=== PATIENT | female | born 1945 | race Caucasian/White ===

== ENCOUNTER → 2017-09-20 09:11 | Outpatient (CLI) | payer MEDICARE, BC, SELFPAY ==
[2017-09-20 09:32] LABS: Basophils # 0.1 K/mm3 (0-0.2); Basophils % 1.1 % (0.1-2.0); Eosinophils # 0.2 K/mm3 (0.0-0.4); Hematocrit 40.7 % (37.0-47.0); Hemoglobin 13.2 g/dL (12.2-16.2); Lymphocytes # 1.9 K/mm3 (0.7-4.5); Mean Corpuscular HGB Conc 32.4 g/dL (31.8-35.4); Mean Corpuscular Hemoglobin 28.4 pg (27.0-31.2); Mean Corpuscular Volume 87.6 fl (81-99); Monocytes # 0.4 K/mm3 (0.1-1.0); Monocytes % 7.4 % (1.7-9.3); Neutrophils # 3.1 K/mm3 (1.8-7.8); Neutrophils % 54.4 % (37.0-80.0); Platelet Count 253 K/mm3 (142-424); Red Blood Count 4.65 M/mm3 (4.20-5.40); White Blood Count 5.6 K/mm3 (4.8-10.8)
[2017-09-20 10:38] LABS: Alanine Aminotransferase 28 U/L (12-78); Albumin/Globulin Ratio 1.1 (1.1-1.8); Alkaline Phosphatase 70 U/L (46-116); Anion Gap 14.9 mEq/L (5-15); Aspartate Amino Transferase 22 U/L (15-37); Bilirubin,Total 0.6 mg/dL (0.2-1.0); Blood Urea Nitrogen 14 mg/dL (7-18); Calcium 9.4 mg/dL (8.5-10.1); Carbon Dioxide 28 mmol/L (21.0-32.0); Chloride 103 mmol/L (98-107); Chol/HDL Ratio 4.8 (1-3.5); Cholesterol 206 mg/dL (140-200); Creatinine,Serum 0.68 mg/dL (0.55-1.02); Estimated Glomerular Filt Rate 85 ml/min (>60); GFR (African American) 103 ML/MIN (>60); Globulin 3.7 gm/dl (1.3-3.2); Glucose 101 mg/dL (74-106); HDL Cholesterol 43 mg/dL (29-89); LDL Cholesterol 103 mg/dL (0-130); Potassium 3.9 mmoL/L (3.5-5.1); Sodium 142 mmol/L (136-145); Total Protein,Serum 7.7 gm/dL (6.4-8.2); Triglycerides 298 mg/dL (30-200); VLDL Cholesterol 60 mg/dL (0-40)
== END ==
PROVIDERS: Visit Provider Internal Medicine
DX: I10 Essential (primary) hypertension (principal); E78.5 Hyperlipidemia, unspecified; M17.0 Bilateral primary osteoarthritis of knee
CPT/HCPCS: 36415; 80053; 80061; 85025

== ENCOUNTER → 2017-10-04 10:35 | Outpatient (REF) | payer MEDICARE, BC, SELFPAY | LOC: LAB 10:35 | PROVIDERS: Visit Provider Podiatrist | DX: B07.0 Plantar wart (principal) | CPT/HCPCS: 87102; 87206; 87220 ==

== ENCOUNTER → 2018-04-26 09:32 | Outpatient (CLI) | payer MEDICARE, BC, SELFPAY ==
[2018-04-26 11:49] LABS: Alanine Aminotransferase 31 U/L (12-78); Albumin Level 3.9 gm/dL (3.4-5.0); Albumin/Globulin Ratio 1.1 (1.1-1.8); Alkaline Phosphatase 65 U/L (46-116); Anion Gap 13.2 mEq/L (5-15); Aspartate Amino Transferase 19 U/L (15-37); Bilirubin,Total 0.4 mg/dL (0.2-1.0); Blood Urea Nitrogen 17 mg/dL (7-18); Calcium 9.3 mg/dL (8.5-10.1); Carbon Dioxide 27 mmol/L (21.0-32.0); Chloride 104 mmol/L (98-107); Cholesterol 193 mg/dL (140-200); Estimated Glomerular Filt Rate 71 ml/min (>60); GFR (African American) 85 ML/MIN (>60); Globulin 3.6 gm/dl (1.3-3.2); Glucose 103 mg/dL (74-106); HDL Cholesterol 48 mg/dL (29-89); LDL Cholesterol 117 mg/dL (0-130); Potassium 4.2 mmoL/L (3.5-5.1); Sodium 140 mmol/L (136-145); Total Protein,Serum 7.5 gm/dL (6.4-8.2); Triglycerides 142 mg/dL (30-200); VLDL Cholesterol 28 mg/dL (0-40)
== END ==
PROVIDERS: Visit Provider Internal Medicine
DX: E78.5 Hyperlipidemia, unspecified (principal); I10 Essential (primary) hypertension
CPT/HCPCS: 36415; 80053; 80061

== ENCOUNTER → 2018-10-17 10:19 | Outpatient (CLI) | payer MEDICARE, BC, SELFPAY ==
[2018-10-17 10:48] LABS: Basophils % 0.6 % (0.1-2.0); Eosinophils # 0.2 K/mm3 (0.0-0.4); Eosinophils % 2.8 % (0.1-12.0); Hematocrit 39.7 % (37.0-47.0); Hemoglobin 12.8 g/dL (12.2-16.2); Lymphocytes # 2.1 K/mm3 (0.7-4.5); Lymphocytes % 34.5 % (10-50); Mean Corpuscular HGB Conc 32.3 g/dL (31.8-35.4); Mean Corpuscular Hemoglobin 28.1 pg (27.0-31.2); Mean Corpuscular Volume 86.9 fl (81-99); Mean Platelet Volume 6.7 fl (7.4-10.4); Monocytes # 0.4 K/mm3 (0.1-1.0); Monocytes % 5.9 % (1.7-9.3); Neutrophils # 3.4 K/mm3 (1.8-7.8); Neutrophils % 56.2 % (37.0-80.0); Platelet Count 287 K/mm3 (142-424); Red Blood Count 4.57 M/mm3 (4.20-5.40); Red Cell Distribution Width 13.1 % (11.5-17.5)
[2018-10-17 12:14] LABS: Alanine Aminotransferase 32 U/L (12-78); Albumin Level 3.8 gm/dL (3.4-5.0); Albumin/Globulin Ratio 1.1 (1.1-1.8); Alkaline Phosphatase 64 U/L (46-116); Anion Gap 15.3 mEq/L (5-15); Aspartate Amino Transferase 22 U/L (15-37); Bilirubin,Total 0.5 mg/dL (0.2-1.0); Blood Urea Nitrogen 12 mg/dL (7-18); Calcium 9.6 mg/dL (8.5-10.1); Carbon Dioxide 28 mmol/L (21.0-32.0); Chloride 103 mmol/L (98-107); Chol/HDL Ratio 4.3 (1-3.5); Cholesterol 184 mg/dL (140-200); Creatinine,Serum 0.76 mg/dL (0.55-1.02); Estimated Glomerular Filt Rate 75 ml/min (>60); GFR (African American) 91 ML/MIN (>60); Globulin 3.6 gm/dl (1.3-3.2); Glucose 95 mg/dL (74-106); HDL Cholesterol 43 mg/dL (29-89); LDL Cholesterol 100 mg/dL (0-130); Potassium 4.3 mmoL/L (3.5-5.1); Sodium 142 mmol/L (136-145); Total Protein,Serum 7.4 gm/dL (6.4-8.2); Triglycerides 207 mg/dL (30-200); VLDL Cholesterol 41 mg/dL (0-40)
== END ==
PROVIDERS: Visit Provider Internal Medicine
DX: Z01.810 Encounter for preprocedural cardiovascular examination (principal); E78.5 Hyperlipidemia, unspecified; H26.9 Unspecified cataract; I10 Essential (primary) hypertension
CPT/HCPCS: 36415; 80053; 80061; 85025; 93005

== ENCOUNTER → 2019-10-23 09:29 | Outpatient (CLI) | payer MEDICARE, OTHER, SELFPAY ==
[2019-10-23 09:53] LABS: Basophils % 0.7 % (0.1-2.0); Eosinophils # 0.2 K/mm3 (0.0-0.4); Eosinophils % 3.3 % (0.1-12.0); Hematocrit 39.5 % (37.0-47.0); Hemoglobin 13.4 g/dL (12.2-16.2); Lymphocytes # 2.2 K/mm3 (0.7-4.5); Lymphocytes % 37.2 % (10-50); Mean Corpuscular HGB Conc 33.8 g/dL (31.8-35.4); Mean Corpuscular Volume 91.5 fl (81-99); Mean Platelet Volume 7.2 fl (7.4-10.4); Monocytes # 0.4 K/mm3 (0.1-1.0); Monocytes % 6.2 % (1.7-9.3); Neutrophils # 3.1 K/mm3 (1.8-7.8); Neutrophils % 52.6 % (37.0-80.0); Platelet Count 255 K/mm3 (142-424); Red Blood Count 4.31 M/mm3 (4.20-5.40); Red Cell Distribution Width 13.1 % (11.5-17.5); White Blood Count 5.8 K/mm3 (4.8-10.8)
[2019-10-23 10:01] LABS: Alanine Aminotransferase 27 U/L (12-78); Albumin Level 4.6 g/dl (3.5-5.0); Albumin/Globulin Ratio 1.4 (1.1-1.8); Alkaline Phosphatase 69 U/L (38-126); Anion Gap 14.2 mEq/L (5-15); Aspartate Amino Transferase 32 U/L (14-36); Bilirubin,Total 0.6 mg/dl (0.2-1.3); Blood Urea Nitrogen 18 mg/dl (7-17); Calcium 9.5 mg/dl (8.4-10.2); Carbon Dioxide 28 mmol/L (22.0-30.0); Chloride 104 mmol/L (98-107); Chol/HDL Ratio 4.2 (1-3.5); Cholesterol 191 mg/dl (140-200); Estimated Glomerular Filt Rate 82 ml/min (>60); GFR (African American) 99 ML/MIN (>60); Globulin 3.3 g/dL (1.3-3.2); Glucose 107 mg/dl (74-100); HDL Cholesterol 45 mg/dl (40-60); Potassium 4.2 mmoL/L (3.5-5.1); Sodium 142 mmol/L (136-145); Total Protein,Serum 7.9 g/dl (6.3-8.2); Triglycerides 156 mg/dl (30-150); VLDL Cholesterol 31 mg/dL (0-40)
[2019-10-23 10:12] LABS: Direct LDL Cholesterol 109.74 mg/dL (100-129)
== END ==
PROVIDERS: Visit Provider Internal Medicine
DX: I10 Essential (primary) hypertension (principal); E78.5 Hyperlipidemia, unspecified; M17.0 Bilateral primary osteoarthritis of knee; K21.9 Gastro-esophageal reflux disease without esophagitis
CPT/HCPCS: 36415; 80053; 80061; 85025

== ENCOUNTER → 2020-04-23 09:47 | Outpatient (CLI) | payer MEDICARE, OTHER, SELFPAY ==
[2020-04-23 13:23] LABS: Chloride 102 mmol/L (98-107)
[2020-04-23 13:24] LABS: Sodium 139 mmol/L (136-145)
[2020-04-23 13:26] LABS: Alanine Aminotransferase 29 U/L (12-78); Alkaline Phosphatase 63 U/L (38-126); Aspartate Amino Transferase 35 U/L (14-36); Bilirubin,Total 0.6 mg/dl (0.2-1.3); Blood Urea Nitrogen 17 mg/dl (7-17); Carbon Dioxide 30 mmol/L (22.0-30.0); Estimated Glomerular Filt Rate 70 ml/min (>60); GFR (African American) 85 ML/MIN (>60)
[2020-04-23 13:27] LABS: Albumin Level 4.8 g/dl (3.5-5.0); Albumin/Globulin Ratio 1.6 (1.1-1.8); Calcium 10.1 mg/dl (8.4-10.2); Chol/HDL Ratio 5.1 (1-3.5); Cholesterol 209 mg/dl (140-200); Glucose 99 mg/dl (74-100); HDL Cholesterol 41 mg/dl (40-60); Total Protein,Serum 7.8 g/dl (6.3-8.2); Triglycerides 172 mg/dl (30-150); VLDL Cholesterol 34 mg/dL (0-40)
[2020-04-23 13:38] LABS: Direct LDL Cholesterol 124.23 mg/dL (100-129)
== END ==
PROVIDERS: Visit Provider Internal Medicine
DX: E78.5 Hyperlipidemia, unspecified (principal); I10 Essential (primary) hypertension; M17.0 Bilateral primary osteoarthritis of knee
CPT/HCPCS: 36415; 80053; 80061

== ENCOUNTER → 2020-10-24 10:20 | Outpatient (CLI) | payer MEDICARE, OTHER, SELFPAY ==
[2020-10-24 10:39] LABS: Basophils # 0.1 K/mm3 (0-0.2); Basophils % 0.9 % (0.1-2.0); Eosinophils # 0.3 K/mm3 (0.0-0.4); Eosinophils % 4.5 % (0.1-12.0); Hematocrit 38.6 % (37.0-47.0); Lymphocytes # 2.5 K/mm3 (0.7-4.5); Lymphocytes % 40.3 % (10-50); Mean Corpuscular HGB Conc 33.8 g/dL (31.8-35.4); Mean Corpuscular Hemoglobin 29.9 pg (27.0-31.2); Mean Corpuscular Volume 88.5 fl (81-99); Mean Platelet Volume 7.2 fl (7.4-10.4); Monocytes # 0.4 K/mm3 (0.1-1.0); Monocytes % 5.6 % (1.7-9.3); Neutrophils % 48.7 % (37.0-80.0); Platelet Count 261 K/mm3 (142-424); Red Blood Count 4.36 M/mm3 (4.20-5.40); Red Cell Distribution Width 13.3 % (11.5-17.5); White Blood Count 6.3 K/mm3 (4.8-10.8)
[2020-10-24 11:25] LABS: Chloride 106 mmol/L (98-107); Potassium 4.5 mmoL/L (3.5-5.1); Sodium 143 mmol/L (136-145)
[2020-10-24 11:27] LABS: Alanine Aminotransferase 20 U/L (12-78); Anion Gap 12.5 mEq/L (5-15); Aspartate Amino Transferase 27 U/L (14-36); Blood Urea Nitrogen 14 mg/dl (7-17); Carbon Dioxide 29 mmol/L (22.0-30.0); Estimated Glomerular Filt Rate 82 ml/min (>60); GFR (African American) 99 ML/MIN (>60)
[2020-10-24 11:28] LABS: Albumin Level 4.6 g/dl (3.5-5.0); Albumin/Globulin Ratio 1.6 (1.1-1.8); Alkaline Phosphatase 70 U/L (38-126); Bilirubin,Total 0.6 mg/dl (0.2-1.3); Calcium 9.3 mg/dl (8.4-10.2); Chol/HDL Ratio 4.5 (1-3.5); Cholesterol 178 mg/dl (140-200); Globulin 2.8 g/dL (1.3-3.2); Glucose 97 mg/dl (74-100); HDL Cholesterol 40 mg/dl (40-60); Total Protein,Serum 7.4 g/dl (6.3-8.2); Triglycerides 210 mg/dl (30-150); VLDL Cholesterol 42 mg/dL (0-40)
[2020-10-24 11:39] LABS: Direct LDL Cholesterol 84.75 mg/dL (100-129)
== END ==
PROVIDERS: Visit Provider Internal Medicine
DX: I10 Essential (primary) hypertension (principal); E78.5 Hyperlipidemia, unspecified; M15.0 Primary generalized (osteo)arthritis
CPT/HCPCS: 36415; 80053; 80061; 85025

== ENCOUNTER → 2021-03-30 11:14 | Outpatient (CLI) | payer MEDICARE, OTHER, SELFPAY ==
[2021-03-30 13:43] LABS: Strep Scrn Group A (Rapid) Negative (Negative)
== END ==
PROVIDERS: PCP Internal Medicine; Visit Provider Internal Medicine
DX: U07.1 COVID-19 (principal)
CPT/HCPCS: 87275; 87276; 87430; C9803; U0003; U0005

== ENCOUNTER → 2021-04-02 08:04 | Outpatient (CLI) | payer MEDICARE, OTHER, SELFPAY ==
[2021-04-02] VITALS (7 sets, daily range): BP systolic 136–183; BP diastolic 71–80; PULSE 62–69; RESP 18; O2SAT 94–97
== END ==
PROVIDERS: PCP Internal Medicine; Visit Provider Internal Medicine
DX: U07.1 COVID-19 (principal); Z23 Encounter for immunization
CPT/HCPCS: 96365

== ENCOUNTER → 2021-04-27 10:42 | Outpatient (CLI) | payer MEDICARE, OTHER, SELFPAY ==
[2021-04-27 11:43] LABS: Basophils # 0.1 K/mm3 (0-0.2); Basophils % 1.1 % (0.1-2.0); Eosinophils # 0.2 K/mm3 (0.0-0.4); Eosinophils % 3.9 % (0.1-12.0); Hematocrit 40.5 % (37.0-47.0); Hemoglobin 13.4 g/dL (12.2-16.2); Lymphocytes % 36.7 % (10-50); Mean Corpuscular HGB Conc 33.1 g/dL (31.8-35.4); Mean Corpuscular Hemoglobin 30.7 pg (27.0-31.2); Mean Corpuscular Volume 92.6 fl (81-99); Mean Platelet Volume 7.3 fl (7.4-10.4); Monocytes # 0.4 K/mm3 (0.1-1.0); Monocytes % 7.2 % (1.7-9.3); Neutrophils # 2.7 K/mm3 (1.8-7.8); Neutrophils % 51.2 % (37.0-80.0); Platelet Count 252 K/mm3 (142-424); Red Blood Count 4.37 M/mm3 (4.20-5.40); Red Cell Distribution Width 13.6 % (11.5-17.5); White Blood Count 5.3 K/mm3 (4.8-10.8)
[2021-04-27 12:54] LABS: Alanine Aminotransferase 19 U/L (12-78); Albumin Level 4.4 g/dl (3.5-5.0); Albumin/Globulin Ratio 1.6 (1.1-1.8); Alkaline Phosphatase 51 U/L (38-126); Anion Gap 13.5 mEq/L (5-15); Aspartate Amino Transferase 27 U/L (14-36); Bilirubin,Total 0.5 mg/dl (0.2-1.3); Blood Urea Nitrogen 15 mg/dl (7-17); Calcium 9.4 mg/dl (8.4-10.2); Carbon Dioxide 25 mmol/L (22.0-30.0); Chloride 104 mmol/L (98-107); Chol/HDL Ratio 4.1 (1-3.5); Cholesterol 170 mg/dl (140-200); Estimated Glomerular Filt Rate 82 ml/min (>60); GFR (African American) 99 ML/MIN (>60); Globulin 2.8 g/dL (1.3-3.2); Glucose 88 mg/dl (74-100); HDL Cholesterol 41 mg/dl (40-60); Potassium 4.5 mmoL/L (3.5-5.1); Sodium 138 mmol/L (136-145); Total Protein,Serum 7.2 g/dl (6.3-8.2); Triglycerides 186 mg/dl (30-150); VLDL Cholesterol 37 mg/dL (0-40)
[2021-04-27 13:05] LABS: Direct LDL Cholesterol 98.44 mg/dL (100-129)
== END ==
PROVIDERS: PCP Internal Medicine; Visit Provider Internal Medicine
DX: I10 Essential (primary) hypertension (principal); E78.5 Hyperlipidemia, unspecified; M15.0 Primary generalized (osteo)arthritis; K21.9 Gastro-esophageal reflux disease without esophagitis; Z86.16 Personal history of COVID-19
CPT/HCPCS: 36415; 80053; 80061; 85025

== ENCOUNTER → 2021-10-27 09:17 | Outpatient (CLI) | payer MEDICARE, OTHER, SELFPAY ==
[2021-10-27 10:34] LABS: Alanine Aminotransferase 23 U/L (12-78); Albumin Level 4.2 g/dl (3.5-5.0); Albumin/Globulin Ratio 1.4 (1.1-1.8); Alkaline Phosphatase 68 U/L (38-126); Aspartate Amino Transferase 29 U/L (14-36); Bilirubin,Total 0.3 mg/dl (0.2-1.3); Blood Urea Nitrogen 16 mg/dl (7-17); Calcium 9.6 mg/dl (8.4-10.2); Carbon Dioxide 29 mmol/L (22.0-30.0); Chloride 106 mmol/L (98-107); Chol/HDL Ratio 4.4 (1-3.5); Cholesterol 182 mg/dl (140-200); Estimated Glomerular Filt Rate 70 ml/min (>60); GFR (African American) 85 ML/MIN (>60); Glucose 107 mg/dl (74-100); HDL Cholesterol 41 mg/dl (40-60); Magnesium 1.8 mg/dl (1.6-2.3); Sodium 140 mmol/L (136-145); Total Protein,Serum 7.2 g/dl (6.3-8.2); Triglycerides 209 mg/dl (30-150); VLDL Cholesterol 42 mg/dL (0-40)
[2021-10-27 10:45] LABS: Direct LDL Cholesterol 91.13 mg/dL (100-129)
== END ==
PROVIDERS: PCP Internal Medicine; Visit Provider Internal Medicine
DX: I10 Essential (primary) hypertension (principal); E78.5 Hyperlipidemia, unspecified; R25.2 Cramp and spasm
CPT/HCPCS: 36415; 80053; 80061; 83735

== ENCOUNTER → 2022-05-11 09:42 | Outpatient (CLI) | payer MEDICARE, OTHER, SELFPAY ==
[2022-05-11 10:49] LABS: Basophils # 0.1 K/mm3 (0-0.2); Basophils % 1.8 % (0.1-2.0); Eosinophils # 0.2 K/mm3 (0.0-0.4); Eosinophils % 2.8 % (0.1-12.0); Hematocrit 41.9 % (37.0-47.0); Hemoglobin 13.8 g/dL (12.2-16.2); Lymphocytes % 34.5 % (10-50); Mean Corpuscular HGB Conc 32.8 g/dL (31.8-35.4); Mean Corpuscular Hemoglobin 29.8 pg (27.0-31.2); Mean Corpuscular Volume 90.7 fl (81-99); Mean Platelet Volume 7.4 fl (7.4-10.4); Monocytes # 0.4 K/mm3 (0.1-1.0); Monocytes % 7.1 % (1.7-9.3); Neutrophils # 3.2 K/mm3 (1.8-7.8); Neutrophils % 53.8 % (37.0-80.0); Platelet Count 302 K/mm3 (142-424); Red Blood Count 4.62 M/mm3 (4.20-5.40); White Blood Count 5.9 K/mm3 (4.8-10.8)
[2022-05-11 11:47] LABS: Chloride 105 mmol/L (98-107); Potassium 4.6 mmoL/L (3.5-5.1); Sodium 140 mmol/L (136-145)
[2022-05-11 11:50] LABS: Alanine Aminotransferase 22 U/L (12-78); Albumin Level 4.6 g/dl (3.5-5.0); Albumin/Globulin Ratio 1.4 (1.1-1.8); Alkaline Phosphatase 65 U/L (38-126); Anion Gap 10.6 mEq/L (5-15); Aspartate Amino Transferase 27 U/L (14-36); Bilirubin,Total 0.5 mg/dl (0.2-1.3); Blood Urea Nitrogen 17 mg/dl (7-17); Calcium 9.2 mg/dl (8.4-10.2); Carbon Dioxide 29 mmol/L (22.0-30.0); Chol/HDL Ratio 4.8 (1-3.5); Cholesterol 211 mg/dl (140-200); Estimated Glomerular Filt Rate 70 ml/min (>60); GFR (African American) 84 ML/MIN (>60); Globulin 3.3 g/dL (1.3-3.2); Glucose 97 mg/dl (74-100); HDL Cholesterol 44 mg/dl (40-60); Total Protein,Serum 7.9 g/dl (6.3-8.2); Triglycerides 224 mg/dl (30-150); VLDL Cholesterol 45 mg/dL (0-40)
[2022-05-11 12:02] LABS: Direct LDL Cholesterol 110.15 mg/dL (100-129)
== END ==
PROVIDERS: PCP Internal Medicine; Visit Provider Internal Medicine
DX: I10 Essential (primary) hypertension (principal); E78.5 Hyperlipidemia, unspecified; M15.0 Primary generalized (osteo)arthritis
CPT/HCPCS: 36415; 80053; 80061; 85025

== ENCOUNTER → 2022-11-08 09:52 | Outpatient (CLI) | payer MEDICARE, OTHER, SELFPAY ==
[2022-11-08 10:41] LABS: Alanine Aminotransferase 27 U/L (12-78); Albumin Level 4.5 g/dl (3.5-5.0); Albumin/Globulin Ratio 1.5 (1.1-1.8); Alkaline Phosphatase 65 U/L (38-126); Anion Gap 13.5 mEq/L (5-15); Aspartate Amino Transferase 30 U/L (14-36); Bilirubin,Total 0.4 mg/dl (0.2-1.3); Blood Urea Nitrogen 14 mg/dl (7-17); Calcium 9.6 mg/dl (8.4-10.2); Carbon Dioxide 26 mmol/L (22.0-30.0); Chloride 108 mmol/L (98-107); Chol/HDL Ratio 4.5 (1-3.5); Cholesterol 185 mg/dl (140-200); Estimated Glomerular Filt Rate 61 ml/min (>60); GFR (African American) 74 ML/MIN (>60); Globulin 3.1 g/dL (1.3-3.2); Glucose 97 mg/dl (74-100); HDL Cholesterol 41 mg/dl (40-60); Potassium 4.5 mmoL/L (3.5-5.1); Sodium 143 mmol/L (136-145); Total Protein,Serum 7.6 g/dl (6.3-8.2); Triglycerides 243 mg/dl (30-150); VLDL Cholesterol 49 mg/dL (0-40)
[2022-11-08 10:52] LABS: Direct LDL Cholesterol 93.59 mg/dL (100-129)
== END ==
PROVIDERS: PCP Internal Medicine; Visit Provider Internal Medicine
DX: E78.5 Hyperlipidemia, unspecified (principal); I10 Essential (primary) hypertension
CPT/HCPCS: 36415; 80053; 80061

== ENCOUNTER → 2023-01-17 10:58 | Outpatient (CLI) | payer MEDICARE, OTHER, SELFPAY ==
--- OUTSIDE RECORDS SUMMARY | 2023-01-17 11:03 | XMS_ITS | Clinical Summary ---
Author Name Unknown Address [address] [place] [address] Phone Organization [facility] Address [address] [place] [address] Phone Care Team Providers Care Boilermaker Fitter Name Role Phone Ministerio Rudolph MD Unavailable + [phone] VANDANA MAURER MD Primary Care Provider [phone] Reason for Visit and Chief Complaint The Chief Complaint is: Right Hip Pain Problems Includes: Problems addressed during this encounter and other active Problems All Visits Onset Date Resolved Date Provider Condition S tatus Joint Pain in the Right Hip 05/20/2022 Kristopher Davis PA-C Active Plan of Treatment Fall Risk Assessment: This patient has been identified as a fall risk. Balance/gait along with postural blood pressure, vision and home fall hazards have been assessed. Medications have been reviewed, and recommendations made with regard to contributing factors for future falls. Plan of care: Consideration of vitamin D supplementation along with balance and strength training with consideration for formal physical therapy has been discussed with the patient. - Last Documented On 10/14/2022 9:10AM ; [facility] patient present today for evaluation of right hip pain increasing over the last 2-3 weeks, reports fall onto the right side trying to clean a fan. X-rays negative for fracture, mild to moderate joint space narrowing. On exam positive logroll, stiff or hip range of motion than expected, reproducing radiating pain in the anteri
--- OUTSIDE RECORDS SUMMARY | 2023-01-17 11:03 | XMS_ITS ---
Care Plan - [facility] Created on: January 17, 2023 Davey Trinh : 1945 Sex: Female Author Name Unknown Address [address] [place] [address] [place] [address] Phone Organization [facility] Address [address] [place] [address] Phone Care Team Providers Care Clerk Travel Reservations Name Role Phone Klaudia MONTIEL, Ministerio Petersen Unavailable + [phone] LIBERTAD MONTIEL, VANDANA Jonas Primary Care Provider [phone]
--- OUTSIDE RECORDS SUMMARY | 2023-01-17 11:03 | XMS_ITS | Clinical Summary ---
Author Name Unknown Address [address] [place] [place] [address] Phone Organization [facility] , [facility] Address [address] [place] [place] [address] Phone Care Team Providers Care Pipe Buffer Name Role Phone Klaudia MONTIEL, Ministerio Petersen Unavailable + [phone] LIBERTAD MONTIEL, VANDANA E Primary Care Provider [phone] Reason for Visit and Chief Complaint Injections for MRA Problems Includes: Problems addressed during this encounter and other active Problems All Visits Onset Date Resolved Date Provider Condition S tatus Joint Pain in the Right Hip 05/20/2022 Kristopher Davis PA-C Active Plan of Treatment No Plan of Treatment Recorded Assessments Includes: Assessments from this encounter No Assessments Recorded Medical Equipment - Implanted Devices Includes: Current Devices No Medical Equipment Recorded Medications Includes: Medications discussed during this encounter and other current Medications Current Medications (continue as prescribed) Meloxicam 15 MG Oral Tablet 11/03/2022 - 02/01/2023 Pr ovider: Amado Matos PA-C Diagnosis: once a day Adult Aspirin Regimen 81 MG Oral Tablet Delayed Releas e 05/20/2022 Provider:
--- OUTSIDE RECORDS SUMMARY | 2023-01-17 11:03 | XMS_ITS ---
Author Name Unknown Address [address] [place] [address] Phone Organization [facility] Address [address] [place] [address] Phone Care Team Providers Care Dryland Farmer Name Role Phone Klaudia MONTIEL, Ministerio Petersen Unavailable + [phone] LIBERTAD MONTIEL, VANDANA E Primary Care Provider [phone] Reason for Referral Date Encounter Description Provider Reason for Referral 05/20/22 NEW PROBLEM/EST PT Kristopher Davis PA-C Referral To Physician - see pcp for bp 04/10/20 Follow Up Ministerio keenan MD Referral To Physician - see pcp for bp Problems Includes: Active, inactive, and resolved Problems All Visits Onset Date Resolved Date Provider Condition S tatus Joint Pain in the Right Hip 05/20/2022 Kristopher Davis PA-C Active Plan of Treatment Instructions to patient Lose weight Last Documented On 3 1:12PM ; [facility] Lose weight Last Documented On 3 8:04AM ; [facility] Lose weight Last Documented On
--- OUTSIDE RECORDS SUMMARY | 2023-01-17 11:03 | XMS_ITS | Clinical Summary ---
Author Name Unknown Address [address] [place] [address] Phone Organization [facility] , [facility] Address [address] [place] [address] Phone Care Team Providers Care Production Quality Analyst Name Role Phone Klaudia MONTIEL, Ministerio Petersen Unavailable + [phone] VANDANA MAURER MD Primary Care Provider [phone] Reason for Visit and Chief Complaint The [...] with the patient. - Last Documented On 11/03/2022 1:46PM ; [facility], [facility] patient remarks her symptoms have significant improved since last interval exam, she is found anti-inflammatory helpful in the past. Wants to try meloxicam. Encourage physical therapy for hip abductor strengthening and minimus strengthening and soft tissue modalities. We will plan for follow-up when necessary - [place]
--- OUTSIDE RECORDS SUMMARY | 2023-01-17 11:03 | XMS_ITS | Clinical Summary ---
Author Name Unknown Address [address] [place] [address] Phone Organization [facility] , [facility] Address [address] [place] [address] Phone Care Team Providers Care Bottle Hop Name Role Phone Klaudia MONTIEL, Ministerio Petersen Unavailable + [phone] LIBERTAD MONTIEL, VANDANA Jonas Primary Care Provider [phone] Reason for Referral Date Encounter Description Provider Reason for Referral 05/20/22 NEW PROBLEM/EST PT Kristopher Davis PA-C Referral To Physician - see pcp for bp Reason for Visit and Chief Complaint The Chief Complaint is: Right Hip Pain Problems Includes: Problems addressed during this encounter and other active Problems Current Visit Onset Date Resolved Date Provider Talibo n Status Joint Pain in the Right Hip 05/20/2022 Kristopher Davis PA-C Active Past Visits Onset Date Resolved Date Provider Condition Status Joint Pain in the Left Knee 09/08/2016 Ministerio Rudolph MD Active Plan of Treatment she had an acute pain on her right side starting Tuesday night. Patient states that the pain will even radiate from the back to the hip and vice versa. Pain was also made worse by coughing and even going to the bathroom. X-rays appear relatively mild right hip arthritis. She has taken diclofenac which she had a prescription for which seems t
--- NOTE | 2023-01-17 11:12 | ECG_ITS ---
APPROVED REPORT Exam: Resting ECG HR:64 bpm ECG Measurements Heart Rate 64 AXES RI 175 P 59 QRSd 106 QRS 80 QT 384 T 76 QTc 393 Conclusion SINUS RHYTHM INCOMPLETE RBBB NORMAL ECG Electronically signed by : Yovany Garcia MD 01/18/2023 14:06:39
== END ==
PROVIDERS: PCP Internal Medicine; Visit Provider Internal Medicine
DX: Z01.810 Encounter for preprocedural cardiovascular examination (principal); I10 Essential (primary) hypertension
CPT/HCPCS: 93005

== ENCOUNTER → 2023-02-15 11:25 | Outpatient (CLI) | payer MEDICARE, OTHER, SELFPAY | PROVIDERS: PCP Internal Medicine; Visit Provider Internal Medicine | DX: Z20.822 Contact with and (suspected) exposure to COVID-19 (principal) | CPT/HCPCS: 87635 ==

== ENCOUNTER 2023-05-10 09:23 | Outpatient (CLI) | payer MEDICARE, OTHER, SELFPAY ==
[2023-05-10 09:41] LABS: Basophils # 0.1 K/mm3 (0-0.2); Basophils % 0.9 % (0.1-2.0); Eosinophils # 0.2 K/mm3 (0.0-0.4); Eosinophils % 3.6 % (0.1-12.0); Hematocrit 40.4 % (37.0-47.0); Hemoglobin 13.5 g/dL (12.2-16.2); Lymphocytes # 2.4 K/mm3 (0.7-4.5); Lymphocytes % 41.1 % (10-50); Mean Corpuscular HGB Conc 33.5 g/dL (31.8-35.4); Mean Corpuscular Hemoglobin 30.4 pg (27.0-31.2); Mean Corpuscular Volume 90.8 fl (81-99); Mean Platelet Volume 7.4 fl (7.4-10.4); Monocytes # 0.4 K/mm3 (0.1-1.0); Monocytes % 6.1 % (1.7-9.3); Neutrophils # 2.8 K/mm3 (1.8-7.8); Neutrophils % 48.3 % (37.0-80.0); Platelet Count 230 K/mm3 (142-424); Red Blood Count 4.45 M/mm3 (4.20-5.40); Red Cell Distribution Width 13.5 % (11.5-17.5); White Blood Count 5.9 K/mm3 (4.8-10.8)
[2023-05-10 11:16] LABS: Alanine Aminotransferase 23 U/L (12-78); Albumin Level 4.5 g/dl (3.5-5.0); Albumin/Globulin Ratio 1.6 (1.1-1.8); Alkaline Phosphatase 51 U/L (38-126); Anion Gap 14.7 mEq/L (5-15); Aspartate Amino Transferase 29 U/L (14-36); Bilirubin,Total 0.6 mg/dl (0.2-1.3); Blood Urea Nitrogen 17 mg/dl (7-17); Calcium 9.6 mg/dl (8.4-10.2); Carbon Dioxide 22 mmol/L (22.0-30.0); Chloride 108 mmol/L (98-107); Chol/HDL Ratio 4.7 (1-3.5); Cholesterol 192 mg/dl (140-200); Estimated Glomerular Filt Rate 70 ml/min (>60); GFR (African American) 84 ML/MIN (>60); Globulin 2.9 g/dL (1.3-3.2); Glucose 99 mg/dl (74-100); HDL Cholesterol 41 mg/dl (40-60); Potassium 4.7 mmoL/L (3.5-5.1); Sodium 140 mmol/L (136-145); Total Protein,Serum 7.4 g/dl (6.3-8.2); Triglycerides 146 mg/dl (30-150); VLDL Cholesterol 29 mg/dL (0-40)
[2023-05-10 11:27] LABS: Direct LDL Cholesterol 102.24 mg/dL (100-129)
== END 2023-05-10 23:59 ==
LOC: LAB 09:25
PROVIDERS: PCP Internal Medicine; Visit Provider Internal Medicine
DX: I10 Essential (primary) hypertension (principal); E78.5 Hyperlipidemia, unspecified; K21.9 Gastro-esophageal reflux disease without esophagitis; J30.9 Allergic rhinitis, unspecified; M17.0 Bilateral primary osteoarthritis of knee; Z96.642 Presence of left artificial hip joint; Z68.29 Body mass index [BMI] 29.0-29.9, adult
CPT/HCPCS: 36415; 80053; 80061; 85025

== ENCOUNTER 2023-11-08 16:56 | Outpatient (CLI) | payer MEDICARE, OTHER, SELFPAY ==
[2023-11-08 17:36] LABS: Alanine Aminotransferase 23 U/L (12-78); Albumin Level 4.1 g/dl (3.5-5.0); Albumin/Globulin Ratio 1.3 (1.1-1.8); Alkaline Phosphatase 53 U/L (38-126); Anion Gap 11.4 mEq/L (5-15); Aspartate Amino Transferase 27 U/L (14-36); Bilirubin,Total 0.6 mg/dl (0.2-1.3); Blood Urea Nitrogen 19 mg/dl (7-17); Calcium 9.4 mg/dl (8.4-10.2); Carbon Dioxide 27 mmol/L (22.0-30.0); Chloride 105 mmol/L (98-107); Chol/HDL Ratio 4.7 (1-3.5); Cholesterol 194 mg/dl (140-200); Estimated Glomerular Filt Rate 70 ml/min (>60); GFR (African American) 84 ML/MIN (>60); Globulin 3.1 g/dL (1.3-3.2); Glucose 77 mg/dl (74-100); HDL Cholesterol 41 mg/dl (40-60); Potassium 4.4 mmoL/L (3.5-5.1); Sodium 139 mmol/L (136-145); Total Protein,Serum 7.2 g/dl (6.3-8.2); Triglycerides 216 mg/dl (30-150); VLDL Cholesterol 43 mg/dL (0-40)
[2023-11-08 17:47] LABS: Direct LDL Cholesterol 94.22 mg/dL (100-129)
== END 2023-11-08 23:59 | disposition home or self-care (01) ==
LOC: LAB.DROPOF 16:56
PROVIDERS: PCP Internal Medicine; Visit Provider Internal Medicine
DX: I10 Essential (primary) hypertension (principal); E78.5 Hyperlipidemia, unspecified
CPT/HCPCS: 80053; 80061

== ENCOUNTER 2023-11-14 15:55 | Outpatient (CLI) | payer MEDICARE, OTHER, SELFPAY | END 2023-11-14 23:59 | disposition home or self-care (01) | LOC: LAB.DROPOF 11-15 15:17 | PROVIDERS: PCP Internal Medicine; Visit Provider Internal Medicine | DX: L97.919 Non-pressure chronic ulcer of unspecified part of right lower leg with unspecified severity (principal); L08.9 Local infection of the skin and subcutaneous tissue, unspecified | CPT/HCPCS: 87070; 87077; 87186; 87205 ==

== ENCOUNTER 2023-11-21 14:10 | Outpatient (CLI) | payer MEDICARE, OTHER, SELFPAY ==
--- NOTE | 2023-11-21 14:19 | XR_ITS ---
FINAL REPORT CLINICAL HISTORY: Rule out osteomyelitis FINDINGS: RIGHT ANKLE: 2 views of the right ankle were obtained. There is no acute fracture or dislocation. The joint spaces are intact. There is a moderate plantar spur. A small Summer deformity is noted. There is no soft tissue abnormality. IMPRESSION: No acute fracture Reviewed, Interpreted and Dictated by Kervin Olguin MD Transcribed by Gricel Barrientos Authenticated and [facility]
== END 2023-11-21 23:59 | disposition home or self-care (01) ==
LOC: RAD 14:11
PROVIDERS: PCP Internal Medicine; Visit Provider Internal Medicine
DX: L97.919 Non-pressure chronic ulcer of unspecified part of right lower leg with unspecified severity (principal); L08.9 Local infection of the skin and subcutaneous tissue, unspecified
CPT/HCPCS: 73600

== ENCOUNTER 2023-12-15 16:00 | Outpatient (CLI) | payer MEDICARE, OTHER, SELFPAY | END 2023-12-15 23:59 | disposition home or self-care (01) | LOC: LAB.DROPOF 12-16 12:53 | PROVIDERS: PCP Internal Medicine; Visit Provider Internal Medicine | DX: L97.919 Non-pressure chronic ulcer of unspecified part of right lower leg with unspecified severity (principal); L08.9 Local infection of the skin and subcutaneous tissue, unspecified | CPT/HCPCS: 87070; 87205 ==

== ENCOUNTER 2023-12-21 08:00 | Outpatient (RCR) | payer MEDICARE, OTHER, SELFPAY ==
--- NOTE | 2023-12-06 11:43 | HMH.PTOPWND ---
Rehab Outpt Wound Evaluation Rehab OP Wound Evaluation Start: 12/06/23 11:30 Freq: Status: Active Protocol: Document 12/06/23 11:31 AYESHA (Rec: 12/06/23 11:43 PHORBRINA [id number]) E-signed By Nicola Smith, PT Subjective/History History History This is the initial PT wound care eval for Davey Trinh, 78 yowf who presents with ~ 1 mo hx of R medial ankle wound. She reports insidious onset of the wound and states, I thought it was a bug bite, and it was really itchy when it first started. She has PMH pf CVI and HTN. She reports increased palpation tenderness in the marisol-wound skin. She also reports she has been talking multiple oral abx and using topical abx ointment as prescribed. Subjective Subjective 3/4 TTP noted to wound bed and marisol-wound skin. Per-wound erythema noted ~ 2-3 cm surrounding the wound bed. Minimal drainage noted at this time. New diagnosis of cancer in past 12 No months? Wound Eval Wound Right Medial Ankle Wound Type unknown Is This a Chronic Wound Yes Wound Length (cm) 0.9 Wound Width (cm) 0.8 Wound Depth (cm) 0.2 Wound Bed Appearance Eschar Percentage of Eschar (Yellow) (%) 100 Wound Margins Description Well Defined Surrounding Tissue Appearance Bright Red Edema Type Pitting Edema Degree 1+ Query Text:1+ Trace, Barely Detectable, Rebound 15-30 seconds 2+ Moderate, Slight Indentation, Rebound 10-20 seconds 3+ Deep, Deeper Indentation, Rebound > 30 seconds 4+ Very Deep, Rebound > 60 seconds Drainage Description Serous Drainage Amount Scant Wound Topical Solution/Irrigant Saline Irrigant Packing Type Collagen Comment puracol Primary Dressing Composite Comment optifoam gentle border lite Wound Debridement Method Sharps,Forceps,Gauze, Mechanical Wound Debridement Amount of Tissue Moderate Removed Wound Debridement Result Healthy Tissue Revealed,Yellow Sloughing Remains Dressing Change Patient Tolerance Tolerated Well Pedroza-Torres Wound Assessment Tool Assessment Wound size 1=Length x Width <4 sq cm Wound depth 4=Obscured by necrosis Wound edges 3=Well-defined, not attached to wound base Wound undermining 1=None present Necrotic tissue type 4=Adherent, soft, black eschar Necrotic tissue amount 5=75% to 100% of wound covered Exudate type 4=Serous: thin, watery, clear Exudate amount 2=Scant, wound moist but no observable exudate Skin color surrounding wound 2=Bright red &/or blanches to touch Peripheral tissue edema 4=Pitting edema extends <4 cm around wound Peripheral tissue induration 1=None present Granulation tissue 5=No granulation tissue present Epithelialization 5= < 25% wound covered Wound assessment total score 41 Wound Problems/Impairments Impairments Problems/Impairmments Palpation Tenderness,Impaired Shower/Bathing,Impaired Household Care,Increased Edema ,Wound Care Needs,Subjective C /O Pain,Impaired Self Care/ Self Management Prognosis Rehab Potential Good Comment Skilled therapy is indicated to reduce overall wound surface area and return pt to PLOF. Clinical Impression Consistent with Diagnosis Yes Short Term Goals Number of Weeks 4 Decreased Palpation Tenderness Yes: 2/4 R medial ankle Decrease Wound Area Yes: by 25% Header Dock Goals Number of Weeks 6-8 Decreased Palpation Tenderness Yes: 1/4 R medial ankle Improve Ability For Household Care Yes: without pain Decrease Edema Yes: no pitting edema Decrease Wound Area Yes: by 75% Patient to be Ind w/ Home Wound Care/ Yes Dressing Changes Outpatient Therapy Plan of Care Treatment Plan May Include Therapeutic Exercise Including Home Yes Exercise Program Manual Therapy Techniques Yes Neuromuscular Re-education Yes Therapeutic Activities to Return to Yes Previous Functional/Work Level ADL/Self Care Education Yes Orthotics/Bracing/Splinting Yes Manual Lymphatic Drainage Yes Wound Care Yes Eval/Re-Eval Yes Frequency Times per week 1-2 Duration Number of Weeks 6-8 Addendums This patient is a candidate for social No or vocational rehab? Patient/Guardian verbally acknowledges Yes understanding of treatment program and consents to further treatment? Patient/Guardian verbally acknowledges Yes understanding of diagnosis, prognosis and goals for treatment? Eval Complexity PT Charges 34827 - High Complexity PHYSICIAN CERTIFICATION: I certify the specified therapy services for [employer] are required, authorized, and reviewed every 30 days.
== END 2023-12-21 08:05 | disposition home or self-care (01) ==
LOC: PT 08:00
PROVIDERS: Visit Provider Internal Medicine
DX: L97.919 Non-pressure chronic ulcer of unspecified part of right lower leg with unspecified severity (principal); L08.9 Local infection of the skin and subcutaneous tissue, unspecified
CPT/HCPCS: 97163; 97597

== ENCOUNTER 2024-03-28 14:37 | Emergency (ER) | payer MEDICARE, OTHER, SELFPAY ==
[2024-03-28 14:39] VITALS: BP 156/62; PULSE 72; RESP 18; TEMP 36.4; O2SAT 98; BMI 29.7
--- NOTE | 2024-03-28 14:54 | PC.NURSE ---
PT PLACED IN C-COLLAR UPON ARRIVAL
--- NOTE | 2024-03-28 15:07 | ED_ITS ---
<Statement entered by Bea Acuña DO - 03/28/24 16:35> I was consulted by the LAURA, and we discussed the complexity of the problems being addressed. I approved the treatment and management plan for this patient's care in the emergency department, thus performing a substantive portion of the medical decision making. I had an interactive discussion with the patient and the family and they do not want to pursue CT angiogram of the abdomen and pelvis for full trauma scan, but they are agreeable to receive the other scans. They state they did not want to look down into her belly because they think it is fine and did not want her to get any extra contrast. They only wanted to look at her torso up, as she only complains of shoulder pain and neck pain. Trauma scan orders were adjusted. Bea Acuña DO Discharge Plan Disposition Patient Disposition: Home, Self-Care Condition: Good Prescriptions Prescriptions: No Action losartan-hydrochlorothiazide 50-12.5 mg tablet 1 tab PO 90 Days Patient Comments: aspirin [Adult Low Dose Aspirin] 81 mg tablet,delayed release (DR/EC) 81 mg PO mupirocin calcium 2 % cream 1 applic topical BID Qty: 30 0RF nystatin 100,000 unit/gram cream 1 applic topical QID PRN (Reason: Rash around mouth) Qty: 30 1RF doxycycline hyclate 100 mg capsule 100 mg PO BID Qty: 20 1RF levofloxacin 500 mg tablet 500 mg PO DAILY Qty: 10 1RF diclofenac sodium 75 mg tablet,delayed release (DR/EC) 75 mg PO BID Qty: 60 5RF losartan 50 mg tablet See Rx Instructions .ROUTE .COMPLEX Qty: 90 1RF Dose Instruction: TAKE 1 TABLET BY MOUTH EVERY DAY Rx Instructions: TAKE 1 TABLET BY MOUTH EVERY DAY pravastatin 80 mg tablet See Rx Instructions .ROUTE .COMPLEX Qty: 90 1RF Dose Instruction: TAKE 1 TABLET BY MOUTH DAILY AT BEDTIME Rx Instructions: TAKE 1 TABLET BY MOUTH DAILY AT BEDTIME triamcinolone acetonide 0.1 % lotion 1 applic topical BID PRN (Reason: Psoriasis) Qty: 60 1RF Rx Instructions: Massage a few drops into wet scalp twice daily as needed Referrals Follow up/Referrals: Yovany Garcia MD [Primary Care Provider] - See instructions Chase Hoffman DO [Staff Physician] - See instructions Activity Restrictions/Add. Instructions Additional Instructions/Restrictions: I have provided you with a sling for comfort as you have a fracture of a bone spur around the shoulder joint and may benefit from it. I have referred you to orthopedics for further evaluation. Follow-up with your PCP for no improvement or worsening signs or symptoms or return to the ER as needed. Clinical Impressions Clinical Impression: Glenoid fracture of shoulder Qualifiers: Encounter type: initial encounter Fracture type: closed Laterality: left Q ualified Code(s): S42.142A - Displaced fracture of glenoid cavity of scapula, left shoulder, initial encounter for closed fracture Print Language Print Language: Korean Discharge ED Provider: Bea Aucña General Adult HPI General Chief complaint: Fall Stated complaint: AO 03/28/24 1300 injury Left side of body Time Seen by Provider: 03/28/24 15:07 Mode of Arrival: Ambulatory Source of Information: Patient Limitations: No Limitations Description of Symptoms (Recalled from ER Triage Doc. by RN): PT REPORTS FALL FROM LAST STEP, LANDING ON GRAVEL. REPORTS LEFT SHOULDER PAIN, RIGHT THUMB PAIN, NECK PAIN AND ABRASION UNDER LEFT EYE. PT DENIES LOC History of Present Illness HPI narrative: Patient presents for evaluation of a fall. Patient was walking out of the house onto her porch and missed a step. Patient stumbled falling off the porch onto the grass from approximately 2 feet up. She landed on her left side striking her face and left shoulder. She also reports injury to her right thumb. She did not lose consciousness was able to ambulate at the scene but was brought for further evaluation. Patient currently denies neck pain but reports that the side of her face issa on the left, denies any dizziness headache and reports pain at the left shoulder. But has no numbness and tingling distally. Related Data Home Medications ?Medication ?Instructions ?Recorded ?Confirmed aspirin 81 mg tablet,delayed 81 mg PO 05/19/17 12/29/23 release (Adult Low Dose Aspirin) losartan 50 mg-hydrochlorothiazide 1 tab PO 90 days 05/19/17 12/29/23 12.5 mg tablet Previous Rx's ?Medication ?Instructions ?Recorded diclofenac sodium 75 mg 75 mg PO BID #60 tabs 11/04/23 tablet,delayed release nystatin 100,000 unit/gram topical 1 applic topical QID PRN Rash 11/09/23 cream around mouth #30 grams mupirocin calcium 2 % topical cream 1 applic topical BID #30 grams 11/14/23 doxycycline hyclate 100 mg capsule 100 mg PO BID #20 caps 12/07/23 levofloxacin 500 mg tablet 500 mg PO DAILY #10 tabs 12/07/23 losartan 50 mg tablet See Rx Instructions .Route 12/12/23 .COMPLEX #90 tabs pravastatin 80 mg tablet See Rx Instructions .Route 01/11/24 .COMPLEX #90 tabs triamcinolone acetonide 0.1 % 1 applic topical BID PRN Psoriasis 01/24/24 lotion #60 mL Allergies Allergy/AdvReac Type Severity Reaction Status Date / Time pseudoephedrine (From AdvReac Severe Difficulty Verified 12/29/23 08:15 Sudafed) [facility]athing [facility] Disclaimer: The information contained in this section may have been updated after the patient was seen, as this information can be updated by other users. Social History Smoking Status: Never smoker alcohol intake: never counseling provided: none current occupational status: retired Travel in the last 8 weeks: None Have you lived/traveled outside US in past 30 days?: No Contact w/someone who lives/traveled outside US past 30 days?: No Exposure to someone with infectious disease in past 14 days?: No Do you have a fever (greater than 100.4 F or 38 C)?: No Have you tested positive for COVID-19: No Exposed to someone with COVID-19 in past 14 days?: No Do you have a sore throat?: No Do you have a cough?: No Do you have any weakness?: No Do you have any diarrhea?: No Are you experiencing any unusual bleeding?: No Do you have any muscle aches/pain?: No Do you have any abdominal pain?: No Are you experiencing loss of taste or smell?: No Other Medical History Have you received the Flu Vaccine for this season: No Have you received the Pneumonia Vaccine: Yes ROS Obtained: Yes Systems reviewed as appropriate & no additional complaints except as documented Physical Exam General General appearance: alert and in no apparent distress Respiratory Respiratory exam: Present normal lung sounds bilaterally Cardiovascular Cardiovascular exam: Present regular rate Neurological Exam Neurological exam: Present alert, oriented X3 and CN II-XII intact Medical Decision Making Medical Records Medical records reviewed: Yes I reviewed the patient's medical records. Screening: Per USPSTF and CDC recommendations, given the prevalence of disease in our region, it is our hospital?s policy to screen for HIV and viral Hepatitis for all patients aged 18 and over and those with ongoing risk factors. Nathaniel Inquiry Pt receiving controlled substance: No Vital Signs: 03/28/24 14:39 03/28/24 16:45 03/28/24 17:01 Temperature 97.6 F Temperature Source Oral Pulse Rate 70 55 L Pulse Rate [Radial] 72 Respiratory Rate 18 Blood Pressure 188/78 H 134/64 Blood Pressure [Right Arm] 156/62 H Blood Pressure Mean 87 Blood Pressure Mean [Right Arm] 93 Blood Pressure Source Blood Pressure Source [Right Arm] Automatic Cuff Blood Pressure Position Blood Pressure Position [Right Arm] Sitting 02 Sat by Pulse Oximetry 98 98 98 Oxygen Delivery Method Room Air Room Air 03/28/24 17:30 03/28/24 17:45 03/28/24 18:28 Temperature 98.0 F Temperature Source Oral Pulse Rate 55 L 54 L 83 Pulse Rate [Radial] Respiratory Rate 18 Blood Pressure 140/63 140/63 148/60 H Blood Pressure [Right Arm] Blood Pressure Mean Blood Pressure Mean [Right Arm] Blood Pressure Source Manual Cuff/ Auscultation Blood Pressure Source [Right Arm] Blood Pressure Position Supine Blood Pressure Position [Right Arm] 02 Sat by Pulse Oximetry 97 97 Oxygen Delivery Method Room Air Room Air Lab Data Lab results reviewed: Yes I reviewed the patient's lab results. Lab Results 03/28/24 14:55: WBC 6.6, RBC 4.18 L, Hgb 12.6, Hct 37.8, MCV 90.4, MCH 30.1, MCHC 33.3, RDW 13.0, Plt Count 262, MPV 9.5, Neut % (Auto) 51.3, Lymph % (Auto) 33.3, [place] % (Auto) 10.2 H, Eos % (Auto) 4.0, Baso % (Auto) 0.9, Neut # (Auto) 3.4, Lymph # (Auto) 2.2, [place] # (Auto) 0.7, Eos # (Auto) 0.3, Baso # (Auto) 0.1, PT 10.9, INR 0.97, Sodium 135 L, Potassium 4.4, Chloride 107, Carbon Dioxide 28, Anion Gap 4.4 L, BUN 19 H, Creatinine 0.80, Estimated Creat Clear 74, Estimated GFR 70, Est GFR ( Amer) 84, Glucose 89, Calcium 9.5, Total Bilirubin 0.5, AST 39 H, ALT 26, Alkaline Phosphatase 64, Total Protein 7.4, Albumin 4.4, Globulin 3.0, Albumin/Globulin Ratio 1.5, HIV Ag/Ab Combo Qual Negative 03/28/24 14:55 03/28/24 14:55 Orders (Tests/Meds): ED MEDICATIONS Discontinued Medications Generic Name Dose Route Start Last Admin Trade Name Freq PRN Reason Stop Dose Admin Acetaminophen 1,000 mg 03/28/24 15:19 03/28/24 15:24 Acetaminophen 500mg Tab PO 03/28/24 15:20 1,000 mg ONCE ONE Administration Iopamidol 80 ml 03/28/24 16:46 03/28/24 16:47 Iopamidol-370 (76%);100ml Bottle IV 03/28/24 16:47 80 ml ONCE ONE Administration Morphine Sulfate 4 mg 03/28/24 16:26 03/28/24 16:38 Morphine 4mg/Ml Syringe IV 03/28/24 16:27 4 mg ONCE ONE Administration Ondansetron HCl 4 mg 03/28/24 16:26 03/28/24 16:38 Ondansetron 4mg/2ml Vial IV 03/28/24 16:27 4 mg ONCE ONE Administration Sodium Chloride 50 ml 03/28/24 16:46 03/28/24 16:47 0.9 % Sodium Chloride 50 Ml Vial IV 03/28/24 16:47 50 ml ONCE ONE Administration Sodium Chloride 10 ml 03/28/24 16:46 03/28/24 16:47 Sodium Chloride 0.9% 10ml Syr (Rad Only) IV 03/28/24 16:47 10 ml ONCE ONE Administration ORDERS Category Date Time Status CT angio head Stat Cat Scan 03/28/24 15:[address] angio neck Stat Cat Scan 03/28/24 15:[address] bony pelvis Stat Cat Scan 03/28/24 15:[address] cervical spine wo con Stat Cat Scan 03/28/24 15:[address] facial bones wo con Stat Cat Scan 03/28/24 15:[address] head/brain wo con Stat Cat Scan 03/28/24 15:[address] lumbar spine wo con Stat Cat Scan 03/28/24 15:[address] thoracic spine wo con Stat Cat Scan 03/28/24 15:15 Completed Elbow XR left mininum 3 views [XR elbow LT min 3V] Stat Exams 03/28/24 15:14 Completed Humerus XR left [XR humerus LT] Stat Exams 03/28/24 15:14 Completed Shoulder XR left minimum 2 views [XR shoulder LT min 2V Exams 03/28/24 15:14 Completed ] Stat CBC w/Auto Diff [Complete Blood Count Auto Diff] Stat Lab 03/28/24 14:55 Completed CMP [Comprehensive Metabolic Panel] Stat Lab 03/28/24 14:55 Completed HIV Combo Stat Lab 03/28/24 14:55 Completed Hep C Ab with Reflex to RNA Stat Lab 03/28/24 14:55 Received INR [Prothrombin Time INR] Stat Lab 03/28/24 14:55 Completed Medical Decision Narrative: In summary patient is a 78-year-old female who presents to the emergency department for evaluation of a fall. Patient is hemodynamically stable upon arrival, afebrile. Physical exam is remarkable for an abrasion to her left cheek swelling in the left trapezius tenderness to palpation of the right thumb, patient has no other visible trauma contusions abrasions ecchymosis swelling. She has no C-spine tenderness she has no nuchal rigidity she has no dorsal spine tenderness. Patient has painful range of motion of the left shoulder but is neurovascular intact distally with good stripper apprentice strength. Pulses. Patient moves all 4 extremities. Glascow coma score 15. She is awake alert and oriented person place and circumstance cranial nerves II through XII are intact grossly to exam.. Differential diagnosis includes contusion versus fracture. Initial workup will be conducted with trauma scans hematologic labs urinalysis. Initial interventions include Tylenol only initially till scans are read. Initial workup reviewed by me shows that she has a an osteophyte complex fracture of the coracoid of the left shoulder the remainder of her imaging via my informal interpretation shows no other acute processes prior to radiology read.. Upon repeat evaluation patient is ambulatory she is cleared by [place] C-spine and head injury rules. Given this patient is appropriate for discharge with instructions for Tylenol and Motrin and strict return precautions. She will be referred to orthopedics for evaluation of the osteophyte fracture as it could possibly be an avulsion fracture even though radiology did not mention it. She will be given a sling for comfort. Critical Care Critical Care Time Critical Care Time: No
--- NOTE | 2024-03-28 15:14 | XR_ITS ---
PROCEDURE INFORMATION: Exam: XR Left Elbow Exam date and time: 03/28/2024 3:36 PM Age: 78 years old Clinical indication: Injury or trauma; Fall; Blunt trauma (contusions or hematomas); Elbow; Left TECHNIQUE: Imaging protocol: Radiologic exam of the left elbow. Views: 3 or more views. COMPARISON: CR XR HUMERUS LT 03/28/2024 3:30 PM FINDINGS: Bones/joints: No acute fracture or malalignment. No worrisome lytic or blastic osseous lesion. No appreciable cortical erosion or periosteal reaction. Joint spaces are preserved. Soft tissues: No appreciable radiopaque foreign body or gas. IMPRESSION: No acute fracture or malaligment.
--- NOTE | 2024-03-28 15:14 | XR_ITS ---
PROCEDURE INFORMATION: Exam: XR Left Humerus Exam date and time: 03/28/2024 3:30 PM Age: 78 years old Clinical indication: Injury or trauma; Fall; Blunt trauma (contusions or hematomas); Arm, upper; Left TECHNIQUE: Imaging protocol: Radiologic exam of the left humerus. Views: 2 or more views. COMPARISON: CR XR SHOULDER LT MIN 2V 03/28/2024 3:26 PM FINDINGS: Bones/joints: Minimally displaced fracture of the small osteophyte from the superior glenoid . Otherwise, no acute fracture or malalignment. No worrisome lytic or blastic osseous lesion. No appreciable cortical erosion or periosteal reaction. Joint spaces are preserved. Soft tissues: No appreciable radiopaque foreign body or gas. IMPRESSION: Minimally displaced fracture of the small osteophyte from the superior glenoid . Otherwise, no acute fracture or malalignment.
--- NOTE | 2024-03-28 15:14 | XR_ITS ---
PROCEDURE INFORMATION: Exam: XR Left Shoulder Exam date and time: 03/28/2024 3:26 PM Age: 78 years old Clinical indication: Injury or trauma; Fall; Blunt trauma (contusions or hematomas); Shoulder; Left TECHNIQUE: Imaging protocol: Radiologic exam of the left shoulder. Views: 2 or more views. COMPARISON: No relevant prior studies available. FINDINGS: Bones/joints: Small osteophyte of the superior glenoid. No acute fracture or malalignment. 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 Soft tissues: No soft tissue abnormality. IMPRESSION: No acute fracture or malalignment.
--- NOTE | 2024-03-28 15:15 | CT_ITS ---
PROCEDURE INFORMATION: Exam: CT Thoracic Spine Without Contrast Exam date and time: 03/28/2024 4:11 PM Age: 78 years old Clinical indication: Injury or trauma; Fall; Blunt trauma (contusions or hematomas); Additional info: Trauma, critical injury suspected TECHNIQUE: Imaging protocol: Computed tomography of the thoracic spine without contrast. Radiation optimization: All CT scans at this facility use at least one of these dose optimization techniques: automated exposure control; mA and/or kV adjustment per patient size (includes targeted exams where dose is matched to clinical indication); or iterative reconstruction. COMPARISON: CT CERVICAL SPINE WO CON 03/28/2024 3:58 PM FINDINGS: Bones/joints: Mild thoracic kyphosis. No acute fracture or malalignment. Nudw-se-blathjzy multilevel degenerative change. Soft tissues: Unremarkable. IMPRESSION: No acute fracture or malalignment.
--- NOTE | 2024-03-28 15:15 | CT_ITS ---
PROCEDURE INFORMATION: Exam: CT Lumbar Spine Without Contrast Exam date and time: 03/28/2024 4:14 PM Age: 78 years old Clinical indication: Injury or trauma; Fall; Blunt trauma (contusions or hematomas); Additional info: Trauma, critical injury suspected TECHNIQUE: Imaging protocol: Computed tomography of the lumbar spine without contrast. Radiation optimization: All CT scans at this facility use at least one of these dose optimization techniques: automated exposure control; mA and/or kV adjustment per patient size (includes targeted exams where dose is matched to clinical indication); or iterative reconstruction. COMPARISON: CT THORACIC SPINE WO CON 03/28/2024 4:11 PM FINDINGS: Bones/joints: No acute fracture or malalignment. Mild curvature. No worrisome lytic or blastic osseous lesion. Moderate multilevel disc space narrowing, osteophyte formation, bilateral facet hypertrophy. Soft tissues: No soft tissue abnormality. IMPRESSION: 1. No acute fracture or malaligment. 2. Moderate multilevel degenerative change.
--- NOTE | 2024-03-28 15:15 | CT_ITS ---
PROCEDURE INFORMATION: Exam: CTA Head With Contrast, Arteriography Exam date and time: 03/28/2024 4:32 PM Age: 78 years old Clinical indication: Injury or trauma; Fall; Blunt trauma; Head; Additional info: Trauma, critical injury suspected TECHNIQUE: Imaging protocol: Computed tomographic angiography of the head with contrast. Exam focused on the arteries. 3D rendering (Not supervised by radiologist): MIP and/or 3D reconstructed images were created by the technologist. Radiation optimization: All CT scans at this facility use at least one of these dose optimization techniques: automated exposure control; mA and/or kV adjustment per patient size (includes targeted exams where dose is matched to clinical indication); or iterative reconstruction. Contrast material: ISOVUE; Contrast volume: 80 ml; Contrast route: INTRAVENOUS (IV); COMPARISON: CT HEAD/BRAIN WO CON 03/28/2024 3:53 PM FINDINGS: ANTERIOR CIRCULATION: Right internal carotid artery: Intracranial segment is patent with no significant stenosis. No aneurysm. Right middle cerebral artery: No occlusion or significant stenosis. No aneurysm. Right anterior cerebral artery: No occlusion or significant stenosis. No aneurysm. Left internal carotid artery: Intracranial segment is patent with no significant stenosis. No aneurysm. Left middle cerebral artery: No occlusion or significant stenosis. No aneurysm. Left anterior cerebral artery: No occlusion or significant stenosis. No aneurysm. POSTERIOR CIRCULATION: Right vertebral artery: No occlusion or significant stenosis. No aneurysm. Left vertebral artery: No occlusion or significant stenosis. No aneurysm. Basilar artery: No occlusion or significant stenosis. No aneurysm. Right posterior cerebral artery: No occlusion or significant stenosis. No aneurysm. Left posterior cerebral artery: No occlusion or significant stenosis. No aneurysm. Brain: No definite mass, mass effect, or midline shift. Cerebral ventricles: No ventriculomegaly. Bones/joints: Unremarkable. No acute fracture. Soft tissues: Unremarkable. Multiple mildly prominent, symmetric bilateral cervical chain, likely reactive. IMPRESSION: No large vessel stenosis or occlusion.
--- NOTE | 2024-03-28 15:15 | CT_ITS ---
PROCEDURE INFORMATION: Exam: CTA Neck With Contrast Exam date and time: 03/28/2024 4:32 PM Age: 78 years old Clinical indication: Injury or trauma; Fall; Blunt trauma; Head; Additional info: Trauma, critical injury suspected TECHNIQUE: Imaging protocol: Computed tomographic angiography of the neck with contrast. Exam focused on the cervical segments of the vasculature. 3D rendering (Not supervised by radiologist): MIP and/or 3D reconstructed images were created by the technologist. Radiation optimization: All CT scans at this facility use at least one of these dose optimization techniques: automated exposure control; mA and/or kV adjustment per patient size (includes targeted exams where dose is matched to clinical indication); or iterative reconstruction. Contrast material: ISOVUE; Contrast volume: 80 ml; Contrast route: INTRAVENOUS (IV); COMPARISON: CT CERVICAL SPINE WO CON 03/28/2024 3:58 PM FINDINGS: Right common carotid artery: No stenosis. No dissection or occlusion. Right internal carotid artery: No stenosis of the extracranial segment. No dissection or occlusion. Right external carotid artery: No occlusion or stenosis of the origin. Left common carotid artery: No stenosis. No dissection or occlusion. Left internal carotid artery: No stenosis of the extracranial segment. No dissection or occlusion. Left external carotid artery: No occlusion or stenosis of the origin. Right vertebral artery: Dominant vessel. No stenosis. No dissection or occlusion. Left vertebral artery: Aortic arch origin. No stenosis. No dissection or occlusion. Soft tissues: Normal. No significant soft tissue swelling. Bones/joints: No acute fracture. Degenerative changes. IMPRESSION: No stenosis or occlusion. No dissection. REFERENCES: NASCET CRITERIA. The degree of stenosis in the cervical segment of the internal carotid artery is based on NASCET criteria. Normal is no stenosis. Mild is less than 50% stenosis. Moderate is 50-69% stenosis. Severe is 70% to 99% stenosis. Total occlusion is no detectable patent lumen.
--- NOTE | 2024-03-28 15:15 | CT_ITS ---
PROCEDURE INFORMATION: Exam: CT Head Without Contrast Exam date and time: 03/28/2024 3:53 PM Age: 78 years old Clinical indication: Injury or trauma; Fall; Blunt trauma (contusions or hematomas); Consciousness not specified; Additional info: Trauma, critical injury suspected TECHNIQUE: Imaging protocol: Computed tomography of the head without contrast. Radiation optimization: All CT scans at this facility use at least one of these dose optimization techniques: automated exposure control; mA and/or kV adjustment per patient size (includes targeted exams where dose is matched to clinical indication); or iterative reconstruction. COMPARISON: No relevant prior studies available. FINDINGS: Brain: Diffuse cerebral atrophy and white matter microangiopathic chronic ischemia in both hemispheres. No CT evidence of acute infarct, hemorrhage, mass or mass effect. Cerebral ventricles: No ventriculomegaly. Paranasal sinuses: Visualized sinuses are unremarkable. No fluid levels. Mastoid air cells: Visualized mastoid air cells are well aerated. Bones: Unremarkable. No acute fracture. Soft tissues: Unremarkable. IMPRESSION: Senescent brain changes but no CT evidence of acute brain injury.
--- NOTE | 2024-03-28 15:15 | CT_ITS ---
PROCEDURE INFORMATION: Exam: CT Cervical Spine Without Contrast Exam date and time: 03/28/2024 3:58 PM Age: 78 years old Clinical indication: Injury or trauma; Fall; Blunt trauma; Additional info: Trauma, critical injury suspected TECHNIQUE: Imaging protocol: Computed tomography of the cervical spine without contrast. Radiation optimization: All CT scans at this facility use at least one of these dose optimization techniques: automated exposure control; mA and/or kV adjustment per patient size (includes targeted exams where dose is matched to clinical indication); or iterative reconstruction. COMPARISON: CT HEAD/BRAIN WO CON 03/28/2024 3:53 PM FINDINGS: Bones: There are multilevel chronic degenerative changes throughout the cervical spine. No evidence of a fracture or destructive bone lesion. The cervical spine is normally aligned. Lungs: Lung apices are normal. Soft tissues: Unremarkable. IMPRESSION: Multilevel chronic degenerative changes of the cervical spine without fracture.
--- NOTE | 2024-03-28 15:17 | CT_ITS ---
PROCEDURE INFORMATION: Exam: CT Pelvis Without Contrast, Skeleton Exam date and time: 03/28/2024 4:20 PM Age: 78 years old Clinical indication: Injury or trauma; Fall; Blunt trauma (contusions or hematomas); Left; Prior surgery; Surgery date: 6+ months; Surgery type: Hip replacement; Additional info: Trauma, critical injury suspected TECHNIQUE: Imaging protocol: Computed tomography of the pelvis without contrast. Exam focused on the skeleton. Radiation optimization: All CT scans at this facility use at least one of these dose optimization techniques: automated exposure control; mA and/or kV adjustment per patient size (includes targeted exams where dose is matched to clinical indication); or iterative reconstruction. COMPARISON: CT LUMBAR SPINE WO CON 03/28/2024 4:14 PM FINDINGS: Kidneys and ureters: Punctate, nonobstructive calculus right kidney inferior pole. Intestine: Moderate colonic diverticulosis. Bones/joints: Total left hip arthroplasty without appreciable hardware complication. No acute fracture or malalignment. Soft tissues: Unremarkable. IMPRESSION: No acute fracture or malalignment.
--- NOTE | 2024-03-28 15:17 | CT_ITS ---
PROCEDURE INFORMATION: Exam: CT Maxillofacial Without Contrast Exam date and time: 03/28/2024 4:03 PM Age: 78 years old Clinical indication: Injury or trauma; Fall; Blunt trauma (contusions or hematomas); Cheek bone and forehead; Left; Additional info: Trauma, critical injury suspected TECHNIQUE: Imaging protocol: Computed tomography of the face without contrast. Radiation optimization: All CT scans at this facility use at least one of these dose optimization techniques: automated exposure control; mA and/or kV adjustment per patient size (includes targeted exams where dose is matched to clinical indication); or iterative reconstruction. COMPARISON: CT HEAD/BRAIN WO CON 03/28/2024 3:53 PM FINDINGS: Paranasal sinuses: No air-fluid levels. Orbital cavities: Orbits are normal. Globes are unremarkable. Mastoid air cells: Small left mastoid effusion. Bones: No acute fracture. The mandible, zygomatic arches, nasal bones and facial bones are intact. Soft tissues: Unremarkable. IMPRESSION: 1. No evidence of an orbital or facial bone fracture. 2. Small left mastoid effusion without evidence of a temporal bone or mastoid fracture.
[2024-03-28] MEDS: ACETAMINOPHEN 500MG TAB 1000 MG PO (15:24)
--- NOTE | 2024-03-28 15:34 | PC.NURSE ---
PT TO CT
[2024-03-28 15:45] LABS: Albumin Level 4.4 g/dl (3.5-5.0); Chloride 107 mmol/L (98-107)
[2024-03-28 15:46] LABS: Potassium 4.4 mmoL/L (3.5-5.1); Sodium 135 mmol/L (136-145)
[2024-03-28 15:47] LABS: Hemoglobin 12.6 g/dL (12.2-16.2); Red Blood Count 4.18 M/mm3 (4.20-5.40); White Blood Count 6.6 K/mm3 (4.8-10.8)
[2024-03-28 15:48] LABS: Basophils # 0.1 K/mm3 (0-0.2); Basophils % 0.9 % (0.1-2.0); Blood Urea Nitrogen 19 mg/dl (7-17); Creatinine Clearance Estimated 74 mL/min (50-200); Eosinophils # 0.3 K/mm3 (0.0-0.4); Estimated Glomerular Filt Rate 70 ml/min (>60); GFR (African American) 84 ML/MIN (>60); Hematocrit 37.8 % (37.0-47.0); Lymphocytes # 2.2 K/mm3 (0.7-4.5); Lymphocytes % 33.3 % (10-50); Mean Corpuscular HGB Conc 33.3 g/dL (31.8-35.4); Mean Corpuscular Hemoglobin 30.1 pg (27.0-31.2); Mean Corpuscular Volume 90.4 fl (81-99); Mean Platelet Volume 9.5 fl (7.4-10.4); Monocytes # 0.7 K/mm3 (0.1-1.0); Monocytes % 10.2 % (1.7-9.3); Neutrophils # 3.4 K/mm3 (1.8-7.8); Neutrophils % 51.3 % (37.0-80.0); Platelet Count 262 K/mm3 (142-424)
[2024-03-28 15:49] LABS: Alanine Aminotransferase 26 U/L (12-78); Albumin/Globulin Ratio 1.5 (1.1-1.8); Alkaline Phosphatase 64 U/L (38-126); Anion Gap 4.4 mEq/L (5-15); Aspartate Amino Transferase 39 U/L (14-36); Bilirubin,Total 0.5 mg/dl (0.2-1.3); Calcium 9.5 mg/dl (8.4-10.2); Carbon Dioxide 28 mmol/L (22.0-30.0); Glucose 89 mg/dl (74-100); Total Protein,Serum 7.4 g/dl (6.3-8.2)
[2024-03-28 15:51] LABS: INR 0.97 (0.9-1.1); Prothrombin Time 10.9 seconds (10.1-12.5)
[2024-03-28] MEDS: MORPHINE 4MG/ML SYRINGE 4 MG IV (16:38)
[2024-03-28] MEDS: ONDANSETRON 4MG/2ML VIAL 4 MG IV (16:38)
[2024-03-28 16:39] LABS: HIV Combo NEGATIVE (Negative)
[2024-03-28 16:45] VITALS: BP 188/78; PULSE 70; O2SAT 98
[2024-03-28] MEDS: IOPAMIDOL-370 (76%);100ML BOTTLE 80 ML IV (16:47)
[2024-03-28] MEDS: 0.9 % SODIUM CHLORIDE 50 ML VIAL IV (16:47)
[2024-03-28] MEDS: SODIUM CHLORIDE 0.9% 10ML SYR (RAD ONLY) 10 ML IV (16:47)
--- NOTE | 2024-03-28 16:49 | PC.NURSE ---
C-COLLAR REMOVED AFTER DR HE REVIEWED CT OF CERVICAL SPINE
[2024-03-28 17:01] VITALS: BP 134/64; PULSE 55; O2SAT 98
[2024-03-28 17:30] VITALS: BP 140/63; PULSE 55; O2SAT 97
[2024-03-28 17:45] VITALS: BP 140/63; PULSE 54; O2SAT 97
[2024-03-28 18:28] VITALS: BP 148/60; PULSE 83; RESP 18; TEMP 36.7; O2SAT 97
[2024-03-30 07:08] LABS: HCV Ab Non Reactive (Non Reactive)
== END 2024-03-28 18:29 | disposition home or self-care (01) ==
PROVIDERS: Emergency Medicine; Physician Assistant; Emergency Provider Emergency Medicine; PCP Internal Medicine
DX: S42.142A Displaced fracture of glenoid cavity of scapula, left shoulder, initial encounter for closed fracture (principal); M25.512 Pain in left shoulder; M54.2 Cervicalgia; M79.644 Pain in right finger(s); S00.81XA Abrasion of other part of head, initial encounter; W10.8XXA Fall (on) (from) other stairs and steps, initial encounter; Y93.89 Activity, other specified; Y92.008 Other place in unspecified non-institutional (private) residence as the place of occurrence of the external cause
CPT/HCPCS: 70450; 70486; 70496; 70498; 72125; 72128; 72131; 72192; 73030; 73060; 73080; 80053; 85025; 85610; 86803; 87389; 96374; 96375; 99285; J2270; J2405; Q9967

== ENCOUNTER 2024-05-04 08:00 | Outpatient (RCR) | payer MEDICARE, OTHER, SELFPAY ==
--- NOTE | 2024-04-18 11:01 | HMH.OTOPEV ---
OT Inpatient Evaluation Rehab OT Outpatient Eval Start: 04/18/24 10:17 Freq: Status: Active Protocol: Document 04/18/24 10:17 LEIDY (Rec: 04/18/24 10:59 LEIDY [email or web address]) E-signed By Aimee Solis, OT Outpatient Therapy Subjective History Subjective History 79 year old female referred to skilled OP OT services for left shoulder rotator cuff tendinopathy and AC joint arthropathy. Patient reported that she fell at her daughter' s house trying to walk up in the stair on 03/28/24. X-ray taken with no s/s of fx. MRI taken with findings: MRI of the left shoulder demonstrates an intact supraspinatus tendon. There is significant AC joint arthropathy with large spur impinging upon the supraspinatus tendon. The infraspinatus subscapularis tendons are intact. No fractures bony lesions or tumors are noted. There is no bone marrow edema appreciated . Was remainder of MRI is unremarkable. Patient has limited AROM of the L UE shld of flex/abd/ir/er. Patient reports having pain during AROM. Inability to use LUE for grasping or lifting. New diagnosis of cancer in past 12 No months? Chief Complaint Pain,Weakness,Decreased Coordination Symptom Type Ache,Dull Symptoms Relieved By Nothing Symptoms Aggravated By Physical Activity Prior Functional Limitations None Current Functional Limitations Reaching,Lifting Symptom Description Constant and Continuous Level of pain today (0-10) 0 Pain scale - at its best (0-10) 0 Pain scale - at its worst (0-10) 7 Shoulder/Elbow Eval Shoulder Objective Measurements Shoulder ROM Left Shoulder Abduction Active Range of 40 Motion (degrees) Shoulder Flexion Active Range of Motion 40 (degrees) Query Text: Shoulder External Rotation Active Range 10 of Motion (degrees) Shoulder Internal Rotation Active Range 10 of Motion (degrees) pain with active ROM shoulder exam left standard Shoulder MMT Shoulder Abduction Strength Grade 2 Poor Shoulder Extension Strength Grade 2 Poor Shoulder Flexion Strength Grade 2 Poor Shoulder Horizontal Abduction Strength 2 Poor Grade Shoulder Horizontal Adduction Strength 2 Poor Grade Infraspinatus/Teres Minor Strength Grade 2 Poor Shoulder External Rotation Strength 2 Poor Grade Shoulder Internal Rotation Strength 2 Poor Grade Elbow Objective Measurements QuickDASH Activities Please rate your ability to do the following activities in the last week by selecting the number below the appropriate response. 1. Open a tight or new jar. Unable 2. Do heavy prefabricated houses trimmer (e.g., wash Severe difficulty callahan, floors). 3. Carry a shopping bag or briefcase. Severe difficulty 4. Wash your back. Unable 5. Use a knife to cut food. Severe difficulty 6. Recreational activities in which you Unable take some force or impact through your arm, shoulder, or hand (e.g., golf, hammering, tennis, etc.). 7. During the past week, to what extent Extremely has your arm, shoulder or hand problem interfered with your normal social activities with family, friends, neighbors or groups? 8. During the past week, were you Unable limited in your work or other regular daily activites as a result of your arm, shoulder or hand problem? 9. Arm, shoulder or hand pain. Severe 10. Tingling (pins and needles) in your None arm, shoulder or hand. 11. During the past week, how much Moderate difficulty difficulty have you had sleeping because of the pain in your arm, shoulder or hand? Quick DASH 45 OT Outpatient Assessment Impairments Problems/Impairments Impaired Range of Motion, Impaired Strength,Subjective C /O Pain Prognosis Rehab Potential Good Clinical Impression Consistent with Diagnosis Yes Short Term Goals Number of Weeks 2 Increase Range of Motion Yes: Improve AROM of L UE Shld flex: 80; abd: 80; er: 50; ir : 50 Increase Strength Yes: Improve L UE shld strength to 2+ to 3-/5 throughout Decrease Subjective C/O Pain Yes: 6/10 pain at worst Patient to be Ind w/ HEP Yes: PROM Patient to be Ind w/ Advanced HEP Yes: Strengthening Improve Quick Dash Score Yes: 40 Mcfp Goals Number of Weeks 4 Increase Range of Motion Yes: Improve AROM of L UE Shld flex: 120; abd: 120; er: 70; ir: 60 Increase Strength Yes: Improve L UE shld strength to 3-/5 to 3/5 throughout Decrease Edema Yes: 5/10 pain at worst Patient to be Ind w/ HEP Yes: AROM Patient to be Ind w/ Advanced HEP Yes: Advance strengthening Improve Quick Dash Score Yes: 35 Outpatient Therapy Plan of Care Treatment Plan May Include Therapeutic Exercise Including Home Yes Exercise Program Manual Therapy Techniques Yes Therapeutic Activities to Return to Yes Previous Functional/Work Level ADL/Self Care Education Yes Thermal Modalities Yes Electrical Stimulation Yes Ultrasound/Phonophoresis Yes Iontophoresis Yes Eval/Re-Eval Yes Aquatic Therapy Yes Frequency Times per week 2x/wk Duration Number of Weeks 4 weeks Addendums This patient is a candidate for social No or vocational rehab? Patient/Guardian verbally acknowledges Yes understanding of treatment program and consents to further treatment? Patient/Guardian verbally acknowledges Yes understanding of diagnosis, prognosis and goals for treatment? Eval Complexity OT Charge 45380 - Low Complexity PHYSICIAN CERTIFICATION: I certify the specified therapy services for Davey [employer] are required, authorized, and reviewed every 30 days.
== END 2024-05-04 23:59 | disposition home or self-care (01) ==
LOC: OT 08:00
PROVIDERS: Visit Provider Physician Assistant
DX: M25.512 Pain in left shoulder (principal); M67.912 Unspecified disorder of synovium and tendon, left shoulder; R53.1 Weakness
CPT/HCPCS: 97014; 97110; 97140; 97165; 97530; G0283

== ENCOUNTER 2024-05-16 10:50 | Outpatient (CLI) | payer MEDICARE, OTHER, SELFPAY ==
[2024-05-16 15:46] LABS: Basophils # 0.1 K/mm3 (0-0.2); Basophils % 0.8 % (0.1-2.0); Eosinophils # 0.2 K/mm3 (0.0-0.4); Hematocrit 39.7 % (37.0-47.0); Hemoglobin 12.9 g/dL (12.2-16.2); Lymphocytes # 2.3 K/mm3 (0.7-4.5); Lymphocytes % 36.6 % (10-50); Mean Corpuscular HGB Conc 32.5 g/dL (31.8-35.4); Mean Corpuscular Hemoglobin 29.3 pg (27.0-31.2); Mean Corpuscular Volume 90.2 fl (81-99); Mean Platelet Volume 9.7 fl (7.4-10.4); Monocytes # 0.6 K/mm3 (0.1-1.0); Monocytes % 9.2 % (1.7-9.3); Neutrophils # 3.2 K/mm3 (1.8-7.8); Neutrophils % 49.8 % (37.0-80.0); Platelet Count 276 K/mm3 (142-424); White Blood Count 6.4 K/mm3 (4.8-10.8)
[2024-05-16 16:23] LABS: Alanine Aminotransferase 27 U/L (12-78); Albumin Level 4.7 g/dl (3.5-5.0); Albumin/Globulin Ratio 1.8 (1.1-1.8); Alkaline Phosphatase 64 U/L (38-126); Anion Gap 14.7 mEq/L (5-15); Aspartate Amino Transferase 28 U/L (14-36); Bilirubin,Total 0.6 mg/dl (0.2-1.3); Blood Urea Nitrogen 18 mg/dl (7-17); Calcium 9.6 mg/dl (8.4-10.2); Carbon Dioxide 27 mmol/L (22.0-30.0); Chloride 104 mmol/L (98-107); Chol/HDL Ratio 5.1 (1-3.5); Cholesterol 199 mg/dl (140-200); Estimated Glomerular Filt Rate 81 ml/min (>60); GFR (African American) 98 ML/MIN (>60); Globulin 2.6 g/dL (1.3-3.2); Glucose 81 mg/dl (74-100); HDL Cholesterol 39 mg/dl (40-60); Potassium 4.7 mmoL/L (3.5-5.1); Sodium 141 mmol/L (136-145); Total Protein,Serum 7.3 g/dl (6.3-8.2); Triglycerides 263 mg/dl (30-150); VLDL Cholesterol 53 mg/dL (0-40)
[2024-05-16 16:34] LABS: Direct LDL Cholesterol 92.48 mg/dL (100-129)
== END 2024-05-16 23:59 | disposition home or self-care (01) ==
LOC: LAB.DROPOF 05-17 13:18
PROVIDERS: PCP Internal Medicine; Visit Provider Internal Medicine
DX: E78.5 Hyperlipidemia, unspecified (principal); I10 Essential (primary) hypertension
CPT/HCPCS: 80053; 80061; 85025

== ENCOUNTER 2024-06-01 08:00 | Outpatient (RCR) | payer MEDICARE, OTHER, SELFPAY | END 2024-06-01 23:59 | disposition home or self-care (01) | LOC: OT 08:00 | PROVIDERS: Visit Provider Physician Assistant | DX: M25.512 Pain in left shoulder (principal); M67.912 Unspecified disorder of synovium and tendon, left shoulder | CPT/HCPCS: 97014; 97110; 97140; 97168; 97530; G0283 ==

== ENCOUNTER 2024-07-02 10:00 | Outpatient (RCR) | payer MEDICARE, OTHER, SELFPAY | END 2024-07-02 23:59 | disposition home or self-care (01) | LOC: OT 10:00 | PROVIDERS: Visit Provider Physician Assistant | DX: M67.912 Unspecified disorder of synovium and tendon, left shoulder (principal) | CPT/HCPCS: 97014; 97110; 97140; 97168; 97530; G0283 ==

== ENCOUNTER 2024-07-06 07:55 | Outpatient (RCR) | payer MEDICARE, OTHER, SELFPAY | END 2024-07-06 23:59 | disposition home or self-care (01) | LOC: OT 07:55 | PROVIDERS: Visit Provider Physician Assistant | DX: M67.912 Unspecified disorder of synovium and tendon, left shoulder (principal) | CPT/HCPCS: 97014; 97110; 97140; 97530; G0283 ==

== ENCOUNTER 2024-09-17 14:32 | Outpatient (CLI) | payer MEDICARE, OTHER, SELFPAY ==
--- OUTSIDE RECORDS SUMMARY | 2024-09-17 14:38 | XMS_ITS | Clinical Summary ---
Author Organization [facility] Address [address] [place] [address] Phone Care Team Providers Care Ventilating Expert Name Role Phone Unavailable Unavailable Conditions or Problems No information available. Medications No information available. Medications Administered No information available. Allergies, Adverse Reactions, Alerts No information available. Results No information available. Plan of Care No information available. Procedures No information available. Vital Signs No information available. Immunizations No information available. Advance Directives No information available.
--- OUTSIDE RECORDS SUMMARY | 2024-09-17 14:39 | XMS_ITS | Data Portability ---
Author Organization [facility] Address [address] [place] [address] Care Team Providers Care Director Bioinformatics Name Role Phone BOBBY SERRANO Head Banquet Waitress VANDANA MAURER Primary Care Provider Assessment No assessment recorded. Plan of Treatment Reminders Order Date Submit Date Provider Last Modified By Organization Details Last Modified Time Details Appointments LEVEL 2 025 10:00AM BOBBY SERRANO MD Not available Not available Not available Lab None recorde d. Referral None recorde d. Procedures None recorde d. Surgeries None recorde d. Imaging None recorde d. Medication Orders None recorde d. Patient TargetsNo targets recorded. Patient Instructions Encounter Date Encounter Id Patient Instructions Last Modified By Organization Details Last Modified Time 03/24/2023 [id number] recheck 1 wk dkielar Not available 09:56:47 Reviewed postop instructions with patient/daughter and encouraged reading through these daily. Pt to continue moxifloxacin ,prednisolone and ketorolac QID. After 7 days, discontinue moxifloxacin and taper prednisolone and ketorolac per instructions provided. Postoperative warning signs highlighted and pt is instructed to call same day if these should occur or if there are questions regarding instructions or dosing of drops. dkielar Not available 03/24/2023 09:48:30 2023 [id number] tomorrow restrictions are lifted,stop moxifloxacin and begin pred/ketorolac taper per instructions(revie wed with pt/daughter) recheck 1 month refract ou and dilate od dkielar Not available 2023 08:10:38 04/25/2023 [id number] stable po exam M R with +2.75 NL recheck 6 months complete exam dkielar Not available 04/25/2023 10:08:54 10/27/2023 [id number] stable exam recheck 1 yr dkielar Not available 10/27/2023 10:19:09 Reason for Referral None Reported. Results Created Date Observation Date Name Description Value Unit Range Abnormal Flag Note LastModifiedBy Organization Detail LastModifiedTime 03/09/2002/17/2023 intra ocula r lens biome try No observ ation record ed. BARCODE Not Available 2022 11:30:53 Result Notes None recorded. Problems Name Problem SNOMED Code Status Onset Date Resolution Date Notes Provider Name and Address Organization Details Recorded Time Combined form of senile cataract 81773471 Completed 201812/22/2018 BOBBY SERRANO MD [address] [place] [address], [phone], [facility] 9 09:51:35 Posterior vitreous detachment 082569250 Active 2018 BOBBY SERRANO MD [address] [place] [address], [phone], [facility] 3 08:36:43 Myopia 23569228 Active 2018 BOBBY SERRANO MD [address] [place] [address], [phone] 1, [facility] 3 08:36:46 Regular astigmatism 17258770 Active 2018 BOBBY SERRANO MD [address] [place] [address], [phone], [facility] 3 08:36:43 Presbyopia 96850148 Active 2018 BOBBY SERRANO MD [address] [place] [address], [phone] 1, [facility] 3 08:36:43 Secondary cataract 895771455 Active 2022 BOBBY SERRANO MD [address] [place] [address], [phone], [facility] 3 08:08:05 Problem Notes None recorded. Procedures Surgical History Date Name Laterality Status Provider Name and Address Organization Details Recorded Time 12/09/19 24 DAK - Destruction BN Lesions completed Her Santi [facility] 12/09/2023 09:02:00 04/25/19 24 Refraction completed BOBBY SERRANO MD [address] [place] [address], [phone], [facility] 04/25/2023 09:55:56 03/23/20 23 Cataract Extraction - Kielar completed BOBBY SERRANO MD [address] [place] [address], [phone], [facility] 03/23/2023 08:39:42 03/23/20 23 cataract extraction and implantation of intraocular lens completed Bennie Desir [facility] 03/24/2023 09:35:50 01/11/20 23 Axial Length, A-Scan completed BOBBY SERRANO MD [address] [place] [address], [phone] 01/10/2023 08:49:44 12/23/19 19 Refraction completed BOBBY SERRANO MD [address] [place] [address], [phone] 12/22/2018 09:51:09 10/31/19 19 Cataract (left) removal with iol completed Laine Cao [facility] 10/31/2018 08:04:19 10/04/19 19 Axial Length, A-Scan completed BOBBY SERRANO MD [address] [place] [address], [phone] 10/03/2018 17:00:52 Appendectomy completed Eugenie Oh [facility] 03/23/2018 14:51:20 Imaging Results None recorded. Procedure Notes None recorded. Medical Equipment None Reported. Allergies Allergen ID Allergen Name Allergen Category Reaction Reaction Severity Criticality Documentation Date Start Date Code Code System Note Provider Name and Address Organization Details Recorded Time 188344 pseudoeph edrine Not available Not available Not available Not available 03/23/2018 8896 RxNorm Eugenie Oh [facility] 8 14:48:25 Medications Name Sig Start Date Stop Date Status Note LastModified by Organization Details LastModified Time ofloxacin 0.3 % eye drops INSTILL 1 DROP INTO LEFT EYE 4 TIMES PER DAY 12/22 completed Not Available Not Available Not Available ketorolac 0.5 % eye drops INSTILL 1 DROP INTO RIGHT EYE 4 TIMES PER DAY FOR 1 WEEK, THEN USE DIRECTED 04/25 completed Not Available Not Available Not Available prednisol one acetate 1 % eye drops,fahad pension INSTILL 1 DROP INTO RIGHT EYE 4 TIMES PER DAY FOR 1 WEEK, THEN USE DIRECTED 04/25 completed Not Available Not Available Not Available moxifloxa sophia 0.5 % eye drops INSTILL 1 DROP INTO RIGHT EYE 4 TIMES PER DAY FOR 1 WEEK, THEN USE DIRECTED 10/26 completed Not Available Not Available Not Available Aspir-81 active Not Available Not Avai lable Not Available ibuprofen active Not Available Not Tiffanie ilable Not Available Cardizem Daily 03/23 completed Frequenc y: daily;Me dication Descript ion: diltiaze m; Dosage:2 ; Route:or al; refills: 0; Quantity :60 tablet Not Available Not Available Not Available losartan active Not Available Not Avai lable Not Available pravastat in active Not Available Not Available Not Available Butalbita l Compound 03/23 completed Medicati on Descript ion: ASA/buta lbital/c affeine; Route:or al; refills: 0 Not Available Not Available Not Available Vitals None Recorded Social History Question Answer Notes LastModified by Organizat ion Details LastModified Time Tobacco Smoking Status Never Smoker Eugenie Oh [facility] 03/23/2018 14:50:59 What Was The Date Of Your Most Recent Tobacco Screening? 10/03/2018 Information n ot available 05/22/2019 Sex: Unknown Functional Status None recorded. Mental Status None recorded. Family History Relationship Description Onset Age of this Age Resolved Age Notes LastModified by Organization Details LastModified Time Mother Glaucoma [email or web address] Not availabl e 03/23/2018 14:50:36 Mother Diabetes mellitus [email or web address] Not available 2017 14:50:43 Mother Hypertensive disorder [email or web address] Not available 2017 14:50:49 Medical History Condition Response Cataract Y Glasses/Contacts Y Gynecological HistoryNo gynecological history recorded. Obstetrics History GPAL:G 0 P 0 0 0 0 Past Encounters Encounter ID Performer Location Encounter Start Date Encounter Closed Date Diagnosis/Indication Diagnosis SNOMED-CT Code Diagnosis ICD10 Code Diagnosis Note [id number] HERMINIA DEJESUS MD [facility] [address] [place] [address] 5 03/23/2018 14:32:34 03/31/2018 14:35:38 Combined form of senile cataract 37360391 H25.819 ou Myopic astigmatism 04709 4005 H52.209 ou Presbyopia 14934844 H52. 4 [id number] MD ROSMERY XIAO [address] [place] [address] 5 09/14/2018 08:20:57 09/14/2018 11:19:01 Combined form of senile cataract 55763382 H25.819 L>R Myopic astigmatism 58076 4005 H52.209 ou [id number] MD ROSMERY SLOAN [address] [place] [address] 5 10/03/2018 14:32:23 10/04/2018 15:28:06 Combined form of senile cataract 59994703 H25.812 Age-relate d nuclear cataract of right eye 1308121566 22255 H25.11 Posterior vitreous detachment 024349159 H43.813 Myopia 52543321 H52.13 Regular astigmatism 6890 5002 H52.223 Presbyopia 79391969 H52. 4 [id number] BOBBY SERRANO MD SURGERY SCHEDULE [address] [place] [address] 10/30/2018 06:16:45 10/30/2018 06:17:04 [id number] MD ROSMERY SLOAN [address] [place] [id number] 10/31/2018 07:52:35 11/01/2018 13:14:07 Pseudophakia 13221033 Z96.1 pod#1 os-stable [id number] MD ROSMERY SLOAN [address] [place] [address] [place] [id number] 11/10/2018 15:42:59 11/14/2018 16:25:33 Pseudophakia 87790808 Z96.1 po 1 wkos-stabl e [id number] BOBBY SERRANO MD OPHTHALMO LOGY [address] [place] [address] 12/22/2018 08:34:16 12/22/2018 11:39:58 Pseudophakia 10532141 Z96.1 po 1 month os-stable Age-relate d nuclear cataract of right eye 1302960707 66510 H25.11 Myopia 78055394 H52.13 Regular astigmatism 6890 5002 H52.223 Presbyopia 66326276 H52. 4 [id number] BOBBY SERRANO MD OPHTHALMO LOGGabriella [address] [place] [id number] 01/10/2023 07:44:25 01/10/2023 10:08:36 Age-related nuclear cataract of right eye 2989342444 08856 H25.11 progressio n-mature cataract Secondary cataract 90826 4007 H26.492 Posterior vitreous detachment 722152608 H43.813 Myopia 14195557 H52.13 Regular astigmatism 6890 5002 H52.223 Presbyopia 93760723 H52. 4 [id number] BOBBY SERRANO MD SURGERY SCHEDULE [address] [place] [address] 03/23/2023 06:25:05 03/31/2023 13:16:49 Age-related nuclear cataract of right eye 1828739327 09390 H25.11 progressio n-mature cataract [id number] BOBBY SERRANO MD OPHTHALMO LOGGabriella [address] [place] [id number] 03/24/2023 09:27:00 03/24/2023 10:41:47 [id number] BOBBY SERRANO MD OPHTHALMO LOGGabriella [address] [place] [id number] 2023 07:50:03 2023 09:00:23 Postoperative visit 014512830 Z09 stable po exam [id number] BOBBY SERRANO MD OPHTHALMO LOGY [address] [place] [address] 04/25/2023 08:41:34 04/25/2023 10:12:08 Postoperative visit 198917144 Z09 stable po exam Secondary cataract 97322 4007 H26.492 Posterior vitreous detachment 761288713 H43.813 Myopia 66267907 H52.13 Regular astigmatism 6890 5002 H52.223 Presbyopia 24667017 H52. 4 [id number] BOBBY SERRANO MD O[address]THALMO [address]Y [address] [place] [address] 10/27/2023 09:10:26 10/27/2023 10:22:34 Secondary cataract 212293502 H26.493 Posterior vitreous detachment 454705503 H43.813 Myopia 95765888 H52.13 Regular astigmatism 6890 5002 H52.223 Presbyopia 03025096 H52. 4 [id number] ARBEN TAVERA MD [place] [address] [place] [address] 12/09/2023 08:04:47 12/14/2023 17:19:15 Seborrheic keratosis 788964838 L82.1 - Benign appearing, reassuranc e given Inflamed s eborrheic keratosis 832135049 L82.0 R20.8 - Will TX with LN2 today given symptomati c nature (see proc note)- Sites may persist &/or recur after [place] Health Concerns Section Related Observation LastModified by Organization Detai ls LastModified Time None Recorded Concern Status LastModified by Organization Details LastModified Time None Recorded Advance Directives Directive None Recorded Payers Insurance Date Sequence Insurance Name Policy Number Policy Carrasco Covered Member ID Carrasco Member ID Guarantor Name 12/14/2023 2 [employer] (MEDICARE SUPPLEMENT) [employer]ita [employer] [id number] Che[employer]ita [employer] 12/06/2023 1 [place] Che[employer]ita D [employer] [id number] Chequita D [employer] 10/27/2023 2 [place] [id number] Chequita D Power [id number] [employer] Notes Date Note Type Note Provider Name and Address Organization Details Recorded Time 12/09/2023 text/html Last visit 12/2017 Pt is here for spot checkLocation: Forehead, dry skin on back (now gone)Report: picks at spot on forehead due to bothersome/irri tated nature ARBEN TAVERA MD [address] [place], [address], [facility] 12/13/2023 07:33:41 OBGyn Episode No OBEpisode recorded.
[2024-09-17 16:02] LABS: Basophils # 0.1 K/mm3 (0-0.2); Basophils % 0.9 % (0.1-2.0); Eosinophils # 0.2 Kmm3 (0.0-0.4); Eosinophils % 3.4 % (0.1-12.0); Hematocrit 39.3 % (37.0-47.0); Hemoglobin 12.9 g/dL (12.2-16.2); Immature Granulocytes # 0.03 10^3uL; Immature Granulocytes % 0.4 %; Lymphocytes # 2.4 K/mm3 (0.7-4.5); Lymphocytes % 35.1 % (10-50); Mean Corpuscular HGB Conc 32.8 g/dL (31.8-35.4); Mean Corpuscular Hemoglobin 29.9 pg (27.0-31.2); Mean Corpuscular Volume 91.2 fl (81-99); Mean Platelet Volume 9.2 fl (7.4-10.4); Monocytes # 0.7 K/mm3 (0.1-1.0); Monocytes % 10.1 % (1.7-9.3); Neutrophils # 3.4 K/mm3 (1.8-7.8); Neutrophils % 50.1 % (37.0-80.0); Nucleated Red Blood Cells # 0 10^3/uL; Nucleated Red Blood Cells % 0 %; Platelet Count 264 K/mm3 (142-424); Red Blood Count 4.31 M/mm3 (4.20-5.40); Red Cell Distribution Width 12.6 % (11.5-17.5); Red Cell Distribution Width-SD 42.4 fL; White Blood Count 6.8 K/mm3 (4.8-10.8)
[2024-09-17 16:33] LABS: Erythrocyte Sedimentation Rate 26 mm/hr (0-30)
[2024-09-17 16:37] LABS: Alanine Aminotransferase 19 U/L (12-78); Albumin Level 4.4 g/dl (3.5-5.0); Alkaline Phosphatase 61 U/L (38-126); Anion Gap 7.3 mEq/L (5-15); Aspartate Amino Transferase 26 U/L (14-36); Bilirubin,Direct 0.2 mg/dl (0.0-0.4); Bilirubin,Indirect 0.3 mg/dL (0.0-0.9); Bilirubin,Total 0.5 mg/dl (0.2-1.3); Bilirubin,Unconjugated 0.3 mg/dL (0.0-1.1); Blood Urea Nitrogen 14 mg/dl (7-17); Calcium 10.2 mg/dl (8.4-10.2); Carbon Dioxide 30 mmol/L (22.0-30.0); Chloride 104 mmol/L (98-107); Chol/HDL Ratio 5.7 (1-3.5); Cholesterol 216 mg/dl (140-200); Estimated Glomerular Filt Rate 61 ml/min (>60); GFR (African American) 73 ML/MIN (>60); Glucose 90 mg/dl (74-100); HDL Cholesterol 38 mg/dl (40-60); Magnesium 1.8 mg/dl (1.6-2.3); Potassium 4.3 mmoL/L (3.5-5.1); Sodium 137 mmol/L (136-145); Total Protein,Serum 7.5 g/dl (6.3-8.2)
[2024-09-17 16:39] LABS: Triglycerides 483 mg/dl (30-150)
[2024-09-17 16:48] LABS: C-Reactive Protein 0.7 mg/L (0-4)
[2024-09-17 16:53] LABS: Free T4 (Free Thyroxine) 0.88 ng/dl (0.78-2.19)
[2024-09-17 17:08] LABS: Thyroid Stimulating Hormone 3.01 uIU/mL (0.465-4.68)
[2024-09-17 17:55] LABS: Folate 9.83 ng/mL
== END 2024-09-17 23:59 | disposition home or self-care (01) ==
LOC: LAB 14:33
PROVIDERS: PCP Internal Medicine; Visit Provider Internal Medicine
DX: I70.213 Atherosclerosis of native arteries of extremities with intermittent claudication, bilateral legs (principal); G25.81 Restless legs syndrome; I10 Essential (primary) hypertension; M19.012 Primary osteoarthritis, left shoulder; R94.31 Abnormal electrocardiogram [ECG] [EKG]; R42 Dizziness and giddiness; R60.0 Localized edema
CPT/HCPCS: 36415; 80048; 80061; 80076; 82746; 83735; 84439; 84443; 85025; 85651; 86140; 93270

== ENCOUNTER 2024-10-03 10:26 | Outpatient (CLI) | payer MEDICARE, OTHER, SELFPAY ==
--- NOTE | 2024-10-03 | CA_ITS ---
APPROVED REPORT Exam: Pharmacologic Technologist: Eliza King Ht: 6 ft 1 in Wt: 217 lbs BSA: 2.23 m2 Medical History Medications: aspirin, diclofenac sodium, losartan, pravastatin. Stress Test Details Test: Lexiscan Reason for pharmacologic stress test: physical limitation. HR Resting HR: 61 bpm Max Heart Rate (APMHR): 142.921510 bpm Max HR Achieved: 82 bpm Target HR (85% APMHR): 120.957226 bpm % of APMHR: 57.75 Recovery HR: 77 bpm BP Resting BP: 147.0/56.0 mmHg Max BP: 156.0/60.0 mmHg Recovery BP: 156.0/60.0 mmHg ECG Stress ECG Conclusion Symptoms: Denies. Arrhythmias/Ectopy: PVC. ST-T Changes: EKG nondiagnostic -Sandy. Electronically signed by : Angie Kay MD 10/04/2024 12:37:01
--- OUTSIDE RECORDS SUMMARY | 2024-10-03 10:33 | XMS_ITS | Data Portability ---
Author Organization [facility] Address [address] [place] [address] Care Team Providers Care Check Out Clerk Name Role Phone BOBBY SERRANO Field Marketing Director VANDANA MAURER Primary Care Provider Assessment No [...] By Organization Details Last Modified Time 03/24/2023 [id number] recheck 1 wk dkielar Not available 09:56:47 [...] drops. dkielar Not available 03/24/2023 09:48:30 2023 [id number] tomorrow restrictions are lifted,stop moxifloxacin and begin pred/ketorolac taper per instructions(revie wed with pt/daughter) recheck 1 month refract ou and dilate od dkielar Not available 2023 08:10:38 04/25/2023 [id number] stable po exam MR with +2.75 NL recheck 6 months complete exam [email or web address] Not available 04/25/2023 10:08:54 10/27/2023 [id number] stable exam recheck 1 yr dkielar Not [...] Recorded Time Combined form of senile cataract 74261224 Completed 201812/22/2018 BOBBY SERRANO MD [address] [place] [address], [phone], [facility] 9 09:51:35 Posterior vitreous detachment 553673320 Active 2018 BOBBY SERRANO MD [address] [place] [address], [phone], [facility] 3 08:36:43 Myopia 48133833 Active 2018 BOBBY SERRANO MD [address] [place] [address], [phone], [facility] 3 08:36:46 Regular astigmatism 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 Procedures Surgical History Date Name Laterality Status Provider Name and Address Organization Details Recorded Time 12/09/19 24 DAK - Destruction BN Lesions completed Arden Hancock [facility] 12/09/2023 09:02:00 04/25/19 24 Refraction completed BOBBY SERRANO MD [address] [place] [address], [phone], [facility] 04/25/2023 09:55:56 03/23/20 23 Cataract Extraction - Kielar completed BOBBY SERRANO MD [address] [place] [address], [phone], [facility] 03/23/2023 08:39:42 03/23/20 23 cataract extraction and implantation of intraocular lens completed Bennie Desir [facility] 03/24/2023 09:35:50 01/11/20 23 Axial Length, A-Scan completed BOBBY SERRANO MD [address] [place] [address], [phone], [facility] 01/10/2023 08:49:44 12/23/19 19 Refraction completed BOBBY SERRANO MD [address] [place] [address], [phone] 12/22/2018 09:51:09 10/31/19 19 Cataract (left) removal with iol completed Laine Cao [facility] 10/31/2018 08:04:19 10/04/19 19 Axial Length, A-Scan completed BOBBY SERRANO MD [address] [place] [address], [phone] 10/03/2018 17:00:52 Appendectomy completed Eugenie Oh [facility] 03/23/2018 14:51:20 Imaging Results None recorded. Procedure Notes None recorded. Medical Equipment None Reported. Allergies Allergen ID Allergen Name Allergen Category Reaction Reaction Severity Criticality Documentation Date Start Date Code Code System Note Provider Name and Address Organization Details Recorded Time 006255 pseudoeph edrine Not available Not available Not available Not available 03/23/2018 8896 RxNorm [facility] 14:48:25 Medications Name Sig Start Date [...] Tobacco Smoking Status Never Smoker Eugenie Oh [facility] 03/23/2018 14:50:59 What Was The Date Of Your Most Recent Tobacco Screening? 10/03/2018 Information n ot available 05/22/2019 Sex: Unknown Functional Status None recorded. Mental Status None recorded. Family History Relationship Description Onset Age of this Age Resolved Age Notes LastModified by Organization Details LastModified Time Mother Glaucoma [email or web address] Not availabl e 03/23/2018 14:50:36 Mother Diabetes mellitus [email or web address] Not available 2017 14:50:43 Mother Hypertensive disorder [email or web address] Not available 2017 14:50:49 Medical History Condition Response Cataract Y Glasses/Contacts Y Gynecological HistoryNo gynecological history recorded. Obstetrics History GPAL:G 0 P 0 0 0 0 Past Encounters Encounter ID Performer Location Encounter Start Date Encounter Closed Date Diagnosis/Indication Diagnosis SNOMED-CT Code Diagnosis ICD10 Code Diagnosis Note [id number] HERMINIA DEJESUS MD OPHTHALMCarrie AVERY [address] [place] [address] 5 03/23/2018 14:32:34 03/31/2018 14:35:38 Combined form of senile cataract 11222475 H25.819 ou Myopic astigmatism 49215 4005 H52.209 ou Presbyopia 12038079 H52. 4 [id number] MD ROSMERY XIAO [address] [place] [address] 5 09/14/2018 08:20:57 09/14/2018 11:19:01 Combined form of senile cataract 90285663 H25.819 L>R Myopic astigmatism 83531 4005 H52.209 ou [id number] MD ROSMERY SLOAN [address] [place] [address] 5 10/03/2018 14:32:23 10/04/2018 15:28:06 Combined form of senile cataract 24629614 H25.812 Age-relate d nuclear cataract of right eye 9351433055 20674 H25.11 Posterior vitreous detachment 308522788 H43.813 Myopia 87448942 H52.13 Regular astigmatism 6890 5002 H52.223 Presbyopia 05625181 H52. 4 [id number] BOBBY SERRANO MD SURGERY SCHEDULE [address] [place] [address] 10/30/2018 06:16:45 10/30/2018 06:17:04 [id number] MD ROSMERY SOLAN [address] [place] [address] 10/31/2018 07:52:35 11/01/2018 13:14:07 Pseudophakia 50246325 Z96.1 pod#1 os-stable [id number] MD ROSMERY SLOAN [address] [place] [address] 11/10/2018 15:42:59 11/14/2018 16:25:33 Pseudophakia 65683714 Z96.1 po 1 wkos-stabl e [id number] BOBBY SERRANO MD OPHTHALMO BENNIE [address] [place] [address] 12/22/2018 08:34:16 12/22/2018 11:39:58 Pseudophakia 99725001 Z96.1 po 1 month os-stable Age-relate d nuclear cataract of right eye 3914243856 36013 H25.11 Myopia 34126503 H52.13 Regular astigmatism 6890 5002 H52.223 Presbyopia 63227242 H52. 4 [id number] BOBBY SERRANO MD OPHTHALMO BENNIE [address] [place] [address] 01/10/2023 07:44:25 01/10/2023 10:08:36 Age-related nuclear cataract of right eye 8231956481 25695 H25.11 progressio n-mature cataract Secondary cataract 91698 4007 H26.492 Posterior vitreous detachment 091585829 H43.813 Myopia 47315376 H52.13 Regular astigmatism 6890 5002 H52.223 Presbyopia 93515517 H52. 4 [id number] BOBBY SERRANO MD SURGERY SCHEDULE [address] [place] [address] 03/23/2023 06:25:05 03/31/2023 13:16:49 Age-related nuclear cataract of right eye 5653318807 39698 H25.11 progressio n-mature cataract [id number] BOBBY SERRANO MD OPHTHALMO BENNIE [address] [place] [address] 03/24/2023 09:27:00 03/24/2023 10:41:47 [id number] BOBBY SERRANO MD OPHTHALMO BENNIE [address] [place] [id number] 2023 07:50:03 2023 09:00:23 Postoperative visit 420229438 Z09 stable po exam [id number] BOBBY SERRANO MD OPHTHALMO LOGY [address] [place] [address] 04/25/2023 08:41:34 04/25/2023 10:12:08 Postoperative visit 805717203 Z09 stable po exam Secondary cataract 50915 4007 H26.492 Posterior vitreous detachment 420237928 H43.813 Myopia 65173943 H52.13 Regular astigmatism 6890 5002 H52.223 Presbyopia 49274250 H52. 4 [id number] BOBBY SERRANO MD OPHTHALMO LOGY [address] [place] [address] 10/27/2023 09:10:26 10/27/2023 10:22:34 Secondary cataract 165880554 H26.493 Posterior vitreous detachment 535675802 H43.813 Myopia 39403364 H52.13 Regular astigmatism 6890 5002 H52.223 Presbyopia 69652735 H52. 4 [id number] ARBEN TAVERA MD [address] [address] 12/09/2023 08:04:47 12/14/2023 17:19:15 Seborrheic keratosis 746151485 L82.1 - Benign appearing, reassuranc e given Inflamed s eborrheic keratosis 942389410 L82.0 R20.8 - Will TX with LN2 [...] [employer] (MEDICARE SUPPLEMENT) [employer] [id number] [employer] 12/06/2023 1 [place] [employer] [id number] [employer] 10/27/2023 2 [place] [id number] [employer] [id number] [employer] Notes Date Note Type Note Provider Name and Address Organization Details Recorded Time 12/09/2023 text/html Last visit 12/2017 Pt is here for spot checkLocation: Forehead, dry skin on back (now gone)Report: picks at spot on forehead due to bothersome/irri tated nature ARBEN TAVERA MD [address] [place], [address], [facility] 12/13/2023 07:33:41 OBGyn Episode No OBEpisode recorded.
--- OUTSIDE RECORDS SUMMARY | 2024-10-03 10:33 | XMS_ITS | Clinical Summary ---
Author Organization [facility] Address [address] [place] [address] Phone Care Team Providers Care Picker Tender Helper Name Role Phone Unavailable Unavailable Conditions or Problems No information available. Medications No information available. Medications Administered No information available. Allergies, Adverse Reactions, Alerts No information available. Results No information available. Plan of Care No information available. Procedures No information available. Vital Signs No information available. Immunizations No information available. Advance Directives No information available.
--- NOTE | 2024-10-03 10:45 | CA_ITS ---
APPROVED REPORT EXAM: Comprehensive 2D, Doppler, and color-flow Echocardiogram Terminal Make Up Operator: Lucie Ramirez, RCS, RVS Ht: 6 ft 0 in Wt: 217lbs BSA: 2.21 BP: 174/81 mmHg Indications: ABN EKG, CA, Dizziness, Stroke, HTN, HLD 2D Dimensions IVSd 1.23 cm LVEF (Visual) 67.90 % PWd 0.86 cm LA Volume 70.20 mL LVDd 5.40 cm LA Volume Index 31.261516 mL/m2 (M/F) 16-34 LVDs 3.34 cm EF AP4 55.40 % Aortic Root 3.04 cm GL Strain -21.2 % Left Atrium 3.55 cm RVID Base (AP4) 3.59 cm (M/F) 2.5-4.1 LVOT 1.83 cm (M/F) 1.5-2.5 M-Mode Dimensions LVDd 5.40 cm (3.5-5.7) Ao Diam 3.19 cm (2.0-3.7) LVDs 3.54 cm (3.5-5.7) IVSd 1.14 cm (0.6-1.1) PWd 0.96 cm (0.6-1.1) EF (Teich) 64.50% EPSs 0.44 cm FS 36.43% EDV (Teich) 147.40 mL TAPSE 2.77 (<1.7) ESV (Teich) 52.30 mL LV Diastology E Decel Time 275 (160-240 msec) E/A Ratio 0.82 MED E' 7.4 (>= 7 cm/sec) MED A' 10.40 cm/s E'/MED E' Ratio 10.73 (<= 14) LAT E' 7.7 (>= 10 cm/sec) LAT A' 10.60 cm/s E/LAT E' Ratio 10.31 (<= 14) Aortic Valve LVOT Max 100.0 (70-110 cm/s) YISSEL Index 0.86 cm2/m2 LVOT VTI 23.26 cm AoV Peak Preston. 144.0 (50-130 cm/s) AO Mean GR. 4.10 (<5 mmHg) AO VTI 32.3 (18-25 cm) YISSEL (VTI) 1.90 (2.5-4.5 cm2) Mitral Valve MV E Max Preston. 79.0 (40-130 cm/s) MV A Velocity 97.0 (40-130 cm/s) E/A Ratio 0.82 MV Decel. Time 275 (160-240 ms) Left Ventricle The left ventricle is normal size. The left ventricular systolic function is normal. The left ventricular ejection fraction is within the normal range. There is increased overall thickness. There is normal LV segmental wall motion. Transmitral Doppler flow pattern suggests impaired LV relaxation. LVEF is 55%. Right Ventricle The right ventricle is normal size. The right ventricular systolic function is normal. Atria The left atrium size is normal. The right atrium size is normal. There is no Doppler evidence of interatrial shunt. Aortic Valve Aortic valve is mildly thickened. There is no aortic valvular stenosis. No aortic regurgitation is present. Mitral Valve The mitral valve is normal in structure. No evidence of mitral valve stenosis. Trace mitral regurgitation. Tricuspid Valve Tricuspid valve is grossly normal in structure and function. Trace tricuspid regurgitation. There is insufficient TR jet to estimate RVSP. Pulmonic Valve The pulmonary valve is normal in structure. Trace pulmonic regurgitation. Great Vessels The aortic root is normal in size. IVC is normal in size and collapses >50% with inspiration. Pericardium There is no pericardial effusion. Other Information Study Quality: Technically Difficult Conclusion Technically difficult study due to poor acoustic windows. Normal biventricular systolic function. No significant valvular stenosis or regurgitation. Electronically signed by : Angie Kay MD 10/04/2024 13:21:09
--- NOTE | 2024-10-03 12:00 | NM_ITS ---
APPROVED REPORT Exam: Nuclear Stress Test Indication: hypertension..high cholesterol Patient Location: Outpatient Stress Tech: Eliza Latham [place] Tech:ANALIA Pulido RT(R)(N) Ht: 6 ft 0 in Wt: 217 lbs Bra Size: 38c HR: 62 bpm BP: 147/56 mmHg BSA: 2.21 m2 TID: 1.24 History: hypertension..high cholesterol Procedure: Patient received 0.4 mg of intravenous Lexiscan, resting heart rate 62 bpm, resting blood pressure 147/56 mmHg, with Lexiscan maximum heart rate achieved was 83 bpm which is 85 % of the maximum predicted heart rate and blood pressure was 154/59 mmHg. With Lexiscan, patient denied any complaint of chest pain. Cardiac Stress and Resting SPECT Images: Cardiac Stress and Resting SPECT images were obtained using technetium 99m Myoview 31.3 mCi stress and 10.14 mCi at rest. Resting and stress imaging in supine and prone positions demonstrate no evidence of fixed or reversible perfusion defects. There is increase in transient ischemic dilatation ratio (TID 1.24), which may be suggestive of possible multivessel disease or balanced ischemia. Gated imaging demonstrates normal global and regional LV systolic function. LVEF is calculated at 66%. Conclusion: No evidence of fixed or reversible perfusion defects. There is increase in transient ischemic dilatation ratio (TID 1.24), which may be suggestive of possible multivessel disease or balanced ischemia. Gated imaging demonstrates normal global and regional LV systolic function. LVEF is calculated at 66%. Electronically signed by : Angie Kay MD 10/03/2024 17:27:11
[2024-10-03] MEDS: SODIUM CHLORIDE 0.9% 10ML SYR (RAD ONLY) 10 ML IV ×2 (13:44)
[2024-10-03] MEDS: ISOTOPE MYOVIEW (PER STUDY) 1 DOSE IV (13:45)
== END 2024-10-03 23:59 | disposition home or self-care (01) ==
LOC: RT 10:27
PROVIDERS: PCP Internal Medicine; Visit Provider Internal Medicine
DX: I49.3 Ventricular premature depolarization (principal); I70.213 Atherosclerosis of native arteries of extremities with intermittent claudication, bilateral legs; G25.81 Restless legs syndrome; M19.012 Primary osteoarthritis, left shoulder; I10 Essential (primary) hypertension; E78.00 Pure hypercholesterolemia, unspecified; I63.9 Cerebral infarction, unspecified; E78.5 Hyperlipidemia, unspecified; R94.39 Abnormal result of other cardiovascular function study; R60.0 Localized edema; R94.31 Abnormal electrocardiogram [ECG] [EKG]
CPT/HCPCS: 78452; 93016; 93017; 93018; 93306; A9502; J2785

== ENCOUNTER 2024-10-07 08:44 | Outpatient (CLI) | payer MEDICARE, OTHER, SELFPAY ==
--- NOTE | 2024-10-07 08:46 | XR_ITS ---
PROCEDURE INFORMATION: Exam: XR Chest Exam date and time: 10/07/2024 8:49 AM Age: 79 years old Clinical indication: Cough; Additional info: Cough/chest congestion TECHNIQUE: Imaging protocol: Radiologic exam of the chest. Views: 2 views. COMPARISON: MRI JOINT UPR EXTREM W/O DYE 04/12/2024 8:18 AM FINDINGS: Lungs: Nodular density at the right base measures 7 mm, may be partially calcified. Dedicated CT chest recommended. No focal consolidation. Pleural spaces: Unremarkable. No pleural effusion. No pneumothorax. Heart/Mediastinum: Unremarkable. No cardiomegaly. Bones/joints: Unremarkable. IMPRESSION: Nodular density at the right base measures 7 mm, may be partially calcified. Dedicated CT chest recommended.
--- OUTSIDE RECORDS SUMMARY | 2024-10-07 08:48 | XMS_ITS | Clinical Summary ---
Author Organization [facility] Address [address] [place] [address] Phone Care Team Providers Care Tdp Displays Analyst Name Role Phone Unavailable Unavailable Conditions or Problems No information available. Medications No information available. Medications Administered No information available. Allergies, Adverse Reactions, Alerts No information available. Results No information available. Plan of Care No information available. Procedures No information available. Vital Signs No information available. Immunizations No information available. Advance Directives No information available.
== END 2024-10-07 23:59 | disposition home or self-care (01) ==
LOC: RAD 08:46
PROVIDERS: PCP Internal Medicine; Visit Provider Nurse Practitioner
DX: R91.1 Solitary pulmonary nodule (principal); R09.89 Other specified symptoms and signs involving the circulatory and respiratory systems; R05.9 Cough, unspecified
CPT/HCPCS: 71046

== ENCOUNTER 2024-10-10 10:30 | Outpatient (CLI) | payer MEDICARE, OTHER, SELFPAY ==
--- OUTSIDE RECORDS SUMMARY | 2024-10-10 10:33 | XMS_ITS | Clinical Summary ---
Author Organization [facility] Address [address] [place] [address] Phone Care Team Providers Care Specialist Physician Name Role Phone Unavailable Unavailable Conditions or Problems No information available. Medications No information available. Medications Administered No information available. Allergies, Adverse Reactions, Alerts No information available. Results No information available. Plan of Care No information available. Procedures No information available. Vital Signs No information available. Immunizations No information available. Advance Directives No information available.
[2024-10-10] MEDS: GADOTERIDOL INJ 20ML SYRINGE 20 ML IV (12:28)
[2024-10-10] MEDS: SODIUM CHLORIDE 0.9% 10ML SYR (RAD ONLY) 10 ML IV (12:28)
--- NOTE | 2024-10-10 13:00 | MR_ITS ---
FINAL REPORT CLINICAL HISTORY: CVA. struggling with speech [id number]. lightheadedness. COMPARISON: None FINDINGS: Multiplanar MR imaging of the brain was performed without and with contrast. There are a few scattered foci of abnormal signal in the deep white matter, likely mild chronic ischemic microvascular change. There is no evidence of intracranial hemorrhage or mass. No abnormal extra-axial fluid collection is seen. The ventricular size is within normal limits. There is no evidence of shift of the midline structures. The posterior fossa and brainstem have an unremarkable appearance. No area of abnormal restricted diffusion is identified. No abnormal contrast enhancement is seen. Normal major vessel vascular flow voids are noted. IMPRESSION: No acute intracranial abnormality identified. Reviewed, Interpreted and Dictated by Kervin Olguin MD Transcribed by Ashlee Collins Authenticated and [facility]
== END 2024-10-10 23:59 | disposition home or self-care (01) ==
LOC: RT 10:31
PROVIDERS: PCP Internal Medicine; Visit Provider Internal Medicine
DX: I70.213 Atherosclerosis of native arteries of extremities with intermittent claudication, bilateral legs (principal); G25.81 Restless legs syndrome; M19.012 Primary osteoarthritis, left shoulder; I10 Essential (primary) hypertension; I63.9 Cerebral infarction, unspecified; R47.9 Unspecified speech disturbances; E78.5 Hyperlipidemia, unspecified; R60.0 Localized edema; R94.31 Abnormal electrocardiogram [ECG] [EKG]
CPT/HCPCS: 70553; 93923; A9576

== ENCOUNTER 2024-11-19 08:50 | Outpatient (CLI) | payer MEDICARE, OTHER, SELFPAY ==
--- OUTSIDE RECORDS SUMMARY | 2024-11-07 05:45 | XMS_ITS ---
Author Organization [facility] Address [address] [facility] [address] [place] [id number] Care Team Providers Care Director Equipment Name Role Phone Eleni Smith Unavailable [phone] Allergies Allergen (clinical drug ingredient) Drug/Non Drug [...] Interpretation:Normal Performing Lab: Notes/Report: Test performed by [facility] [address] [place], [place] [address] [address], [address], [place] [address] Miles Jenkins MD, Chucking Machine Operator CLIA: [id number] Vitamin B12 198 890-2428 pg/mL P-Comprehensive Metabolic Pa raheel (CMP) Reviewed date:11/13/2024 09:04:30 AM Interpretation:Normal Performing Lab: Notes/Report: Test performed by [facility] [address] [place], [place] [address] [address], [address], [place] [address] Miles Jenkins MD, Chucking Machine Operator CLIA: [id number] Sodium 139 135-145 mmol/L Potassium 4.6 3.5-5.3 [...] 136 Performing Lab: Notes/Report: Test performed by [employer] [employer] [address] [place] [address] , [address], [place] [address] Miles Jenkins MD, Chucking Machine Operator CLIA: [id number] Cholesterol 176 <200 mg/dL Triglycerides 194 <150 [...] Results: 97 Units: mg/dL % Change: - Reason For Referral Diagnosis 1 Dizziness (R42) Diagnosis 2 Word finding difficu lty (R47.89) Referral Organization [facility] Referring Provider First Name Eleni Referring Provider [facility] Referring Provider Speciality Physician Oracle Data Warehouse Developer Referred Provider Specialty Neurology General Notes Eleni Smith 09/2024 01:21:51 PM > Needs appt with Ade Yanez Brynn 11/07/2024 01:54:56 PM > faxed to [facility] NeurologyAde Brynn 11/09/2024 10:51:08 AM > spoke with Elvira; referral received Referral Priority Routine Diagnosis 1 Non-recurrent acute serous otitis media of both ears (H65.03) Referral Organization [facility] Referring Provider First Name Eleni Referring Provider Last Name Sarah Referring Provider Speciality Physician Oracle Data Warehouse Developer Referred Provider Specialty ENT General Notes Eleni Smith 09/2024 01:22:25 PM >[facility] 11/07/2024 01:55:56 PM > faxed to [facility] Ade JAY Brynn 11/09/2024 11:31:36 AM > spoke with Nael; received by ENT Referral Priority Routine REASON FOR VISIT Consult, ALFONSO, f/u with Angie Breen Medications Medication SIG [...] W/U Status Risk Notes Problem Essential hypertension (97382157) Essential hypertension (I10) Active confirmed Problem Mixed hyperlipidemia (938719323) Mixed hyperlipidemia (E78.2) Active confirmed Problem Body mass index 40+ - morbidly obese (028093394) BMI 40.0-44.9, adult (Z68.41) Active confirmed Problem Obesity, morbid, BMI 40.0-49.9 (E66.01) Active confirmed Vital Signs Blood pressure systolic 132 mm Hg 11/08/19 25 Blood pressure diastolic 72 mm Hg 025 Heart Rate 60 /min 11/07/2024 Height 60 in 11/07/2024 Weight 215.4 lbs 11/07/2024 BMI 42.06 kg/m2 11/07/2024 Encounters Encounter [facility] Date [facility] [address], [place] [id number] 11/07/2024 Eleni Crowdy Dizziness R42 ; Essential hypertension I10 ; [...] ears Will start daily claritin as well. Pending Test Test Name Order Date CT Scan : Chest with IV contrast 025 Referrals Referral Date Details 11/07/2024 11/07/2024 11/07/2024 11/07/2024 Next Appt Details Follow Up: via phone to repo rt test results, Reason: Progress Notes * Davey TRINHDOB: [birth year] (79 yo F)Acc No.[id number]:11/07/2024 Progress Notes Patient: Chau Davey YBARRA Provider: SEE Riggs :1945 A ge:79 Y S ex:Female Date:11/07/2024 Address:[address] [place] [address] Rd, [place] Subjective: * Chief Complaints: * 1 . Consult, BW, f/u with Angie Breen. * HPI: H PI: Patient is here today for B 1SDK work and to get established with us. [...] ixed hyperlipidemia - E78.2 7 . B FL 40.0-44.9, adult - Z68.41 8 . O besity, morbid, BMI 40.0-49.9 - E66.01 Plan: * Treatment: Value Reference Range V itamin B12 332 789-7335 - pg/mL * Eleni Smith 11/07/2024 10 :35:15 AM EDT >room B, purple Dez, Yanet 11/13/2024 09:04:20 AM EDT > See phone [...] Smith 11/07/2024 10 :35:15 AM EDT >room Bisabel Whitney 11/13/2024 09:04:20 AM EDT > See [...] p latlet 264 100 - 400 * Earlywine, Samantha 11/07/2024 12 :06:57 PM EDT >SarahEleni Selina 11/07/2024 03:49:52 PM EDT > ? Referral To:Neurology ?Reason: 2.?Word finding difficulty? Referral To:Neurology ?Reason: 3.?Lung density present on imaging study?Imaging: CT Scan : Chest with IV contrast* AdeMiguelina 11/07/2024 01:58 :45 PM EDT > no auth required; CPT code 38739; faxed to [facility] Scheduling 4.?Non-recurrent acute serous otitis media of both [...] G 2211 Complex e/[place], [address] CBC WITH AUTO DIFF, 25679 VENIPUNCT, ROUTINE*, 1036F TOBACCO NON-USER, G8950 PREHTN/HTN BP DOC INDCD F/U DOC, G7052 MOST RECENT SYSTOLIC BP < 140MM HG, G8754 MOST RECENT DIASTOLIC BP < 90MM HG * Follow Up: v ia phone to report test results * Images: Drawing:[address] [facility] 2024 Billing Information: * Visit Code: 08892 Office Visit, New Pt., Level 3. * Procedure Codes: G2211 Complex e/[place]. [address] CBC WITH AUTO DIFF. 09234 VENIPUNCT, ROUTINE*. 1036F TOBACCO NON-USER. G8950 PREHTN/HTN BP DOC INDCD F/U DOC. G8752 MOST RECENT SYSTOLIC BP < 140MM HG. G8754 MOST RECENT DIASTOLIC BP < 90MM HG. * Electronic signature of SEE Raphael on 11/19/2024 at 08:53 AM EDT Sign off status: Pending * Provider: SEE Riggs Date: 11/07/2024 Generated for Meei ania/Fasundarg/eTransmitting on: 11/19/2024 08:53 AM EDT History and Physical Notes * HPI (History [...]
--- OUTSIDE RECORDS SUMMARY | 2024-11-19 08:53 | XMS_ITS ---
Author Organization Unknown [facility] Start Date Provider Encounter for Check-up [id number] [facility]
--- OUTSIDE RECORDS SUMMARY | 2024-11-19 08:53 | XMS_ITS | Clinical Summary ---
Author Organization [facility] Address [address] [place] [address] Phone Care Team Providers Care Dividing Machine Operator Helper Name Role Phone Unavailable Unavailable Conditions or Problems No information available. Medications No information available. Medications Administered No information available. Allergies, Adverse Reactions, Alerts No information available. Results No information available. Plan of Care No information available. Procedures No information available. Vital Signs No information available. Immunizations No information available. Advance Directives No information available.
--- OUTSIDE RECORDS SUMMARY | 2024-11-19 08:53 | XMS_ITS | Patient Health Record ---
[facility] Address [address] [facility] [address] [place] [id number] Care Team Providers Care Manager Hair Name Role Phone [place] Jaime Unavailable [phone] Eleni Smith Unavailable [phone] Allergies Allergen (clinical drug ingredient) Drug/Non Drug Allergy documented on EMR Reaction Allergy Type Onset Date Status Sudafed Unknown Drug Allergy Active tramadol traMADol Unknown Drug Allergy Active Results Component Value Reference Range Notes P-Lipid Panel Reviewed date:11/13/2024 09:04:30 AM Interpretation:trigs 194, non-hdl 136 Performing Lab: Notes/Report: Test performed by [facility], [address] , [address], [place] [address] Miles Jenkins MD, Clay Dry Press Helper CLIA: [id number] Cholesterol 176 <200 mg/dL Triglycerides 194 <150 [...] Results: 97 Units: mg/dL % Change: - P-Comprehensive Metabolic Pa raheel (CMP) Reviewed date:11/13/2024 09:04:30 AM Interpretation:Normal Performing Lab: Notes/Report: Test performed by [facility], [address] , [address], [place] [address] Miles Jenkins MD, Clay Dry Press Helper CLIA: [id number] Sodium 139 135-145 mmol/L Potassium 4.6 3.5-5.3 [...] 0.5 <0.2-1.2 mg/dL A/G Ratio 1.5 1.1-2.5 CBC Venipuncture (in house) Reviewed date:11/07/2024 03:49:53 [...] Interpretation:Normal Performing Lab: Notes/Report: Test performed by [facility] [address] [place] [address] , [address], [place] [address] Miles Jenkins MD, Clay Dry Press Helper CLIA: [id number] Vitamin B12 142 417-1476 pg/mL Reason For Referral Diagnosis 1 Dizziness (R42) Diagnosis 2 Word finding difficu lty (R47.89) Referral Organization [facility] Referring Provider First Name Elnei Referring Provider Last Name Sarah Referring Provider Speciality Physician Captain Waiter/Waitress Referred Provider Specialty Neurology General Notes Eleni Smith 09/2024 01:21:51 PM > Needs appt with Ade Yanez Brynn 11/07/2024 01:54:56 PM > faxed to [facility] NeurologyAde Brynn 11/09/2024 10:51:08 AM > spoke with Elvira; referral received Referral Priority Routine Diagnosis 1 Non-recurrent acute serous otitis media of both ears (H65.03) [facility] Referring Provider First Name Eleni Referring Provider Last Name Sarah Referring Provider Speciality Physician Captain Waiter/Waitress Referred Provider Specialty ENT General Notes Eleni Smith 09/2024 01:22:25 PM [facility] 11/07/2024 01:55:56 PM > faxed to [facility] ENTAde Brynn 11/09/2024 11:31:36 AM > spoke with Nael; received by ENT Referral Priority Routine Medications Medication SIG (Take, Route, Frequency, Duration) Notes Start Date End Date Status Losartan Potassium 50 MG 1 tablet Orally Once a day Active Diclofenac Sodium 75 MG 1 tablet as need ed Orally Twice a day Active Flonase Allergy Relief 50 MCG/ACT 1 spray in each nostril Nasally Once a day; Duration: 90 days Active Aspirin 81 MG 1 tablet Orally Once a day Active Pravastatin Sodium 80 MG 1 tablet Orally Once a day Active Problems Problem Type SNOMED Code ICD Code Onset Dates Problem Status W/U Status Risk Notes Problem Essential hypertension (97478413) Essential hypertension (I10) Active confirmed Problem Mixed hyperlipidemia (354308396) Mixed hyperlipidemia (E78.2) Active confirmed Problem Body mass index 40+ - morbidly obese (921804905) BMI 40.0-44.9, adult (Z68.41) Active confirmed Problem Morbid obesity (591797407) Obesity, morbid, BMI 40.0-49.9 (E66.01) Active confirmed Vital Signs Heart Rate 60 /min 11/07/2024 Blood pressure diastolic 72 mm Hg 11/07/2024 Height 60 in 11/07/2024 Blood pressure systolic 132 mm Hg 11/07/2024 Weight 215.4 lbs 11/07/2024 BMI 42.06 kg/m2 11/07/2024 Encounters Encounter Location Date Provider Diagnosis [address] [id number] 11/07/2024 Eleni Smith Dizziness R42 ; Essential hypertension I10 ; Word finding difficulty R47.89 ; Lung density present on imaging study J98.4 ; Non-recurrent acute serous otitis media of both ears H65.03 ; Mixed hyperlipidemia E78.2 ; BMI 40.0-44.9, adult Z68.41 and Obesity, morbid, BMI 40.0-49.9 E66.01 [facility] [address] [place] [address] [place] [id number] 11/12/2024 [place] [address] [place], [place] [id number] 11/13/2024 Eleni Smith Assessments Encounter Date Diagnosis (ICD Code) Assessment [...] 40.0-49.9 (ICD-10 - E66.01) Plan Of Treatment Pending Test Test Name Order Date CT Scan : Chest with IV contrast 025 Insurance Providers Payer Name Payer Address Payer Phone Subscriber Number Group Number Insured Name Patient Relationship to Insured Coverage Start Date Coverage End Date MEDICARE PART B [address] [address] [place] [address] [id number] Davey Trinh Self - patient is the insured [employer] [address] [place] [address] [id number] Davey Trinh Self - patient is the insured Medical (General) History Medical History History ICD Code Sinus High Cholesterol hypertension Surgical History Surgery Date(Month/Year) tubal ligation 1973 appendectomy 1994 left hip replacement 2017
--- NOTE | 2024-11-19 08:54 | CT_ITS ---
FINAL REPORT TECHNIQUE: Routine axial images were obtained from the lung apices to below the diaphragm following IV contrast administration. Individualized dose reduction techniques using automated exposure control or adjustment of the mA and/or kV according to the patient size were employed. CLINICAL HISTORY: LUNG DENSITY on chest xray Nodular density at the right base measures 7 mm, may be partially calcified. COMPARISON: None FINDINGS: CT CHEST WITH CONTRAST: No mass or adenopathy is identified in the mediastinum or savage. A small hiatal hernia is present. There is mild bilateral axillary adenopathy, the nodes containing fatty savage. There is a spiculated soft tissue mass measuring 2.1 x 1.7 cm in size in the right breast, best seen on image #52 of series 2. Scarring is present in the lung bases bilaterally. No focal pulmonary masses or nodules are identified. No pleural or pericardial effusions are seen. There is a new lesion focus in the medial right lobe of the liver, indeterminate, measuring 9 mm in size. IMPRESSION: No pulmonary nodules are identified. There is a spiculated soft tissue mass 2.1 x 1.7 cm in size in the right breast. Correlation with clinical examination and mammography is suggested for further evaluation. A small hiatal hernia is in place. Reviewed, Interpreted and Dictated by Kervin Olguin MD Transcribed by Ashlee Collins Authenticated and [facility]
[2024-11-19 09:32] LABS: Blood Urea Nitrogen 14 mg/dl (7-17); Creatinine,Serum 0.80 mg/dl (0.52-1.04); Estimated Glomerular Filt Rate 69 ml/min (>60); GFR (African American) 84 ML/MIN (>60)
[2024-11-19] MEDS: IOPAMIDOL-370 (76%);100ML BOTTLE 75 ML IV (10:29)
[2024-11-19] MEDS: SODIUM CHLORIDE 0.9% 10ML SYR (RAD ONLY) 10 ML IV (10:29)
== END 2024-11-19 23:59 | disposition home or self-care (01) ==
LOC: RAD 08:51
PROVIDERS: PCP Physician Assistant; Visit Provider Physician Assistant
DX: K44.9 Diaphragmatic hernia without obstruction or gangrene (principal); N63.10 Unspecified lump in the right breast, unspecified quadrant; J98.4 Other disorders of lung
CPT/HCPCS: 36415; 71260; 82565; 84520; Q9967

== ENCOUNTER 2025-02-18 13:27 | Outpatient (CLI) | payer MEDICARE, OTHER, SELFPAY ==
--- OUTSIDE RECORDS SUMMARY | 2024-11-07 04:45 | XMS_ITS ---
Author Organization [facility] Address [address] [facility] [address] [place] [id number] Care Team Providers Care Manager Of Sustainability Name Role Phone Eleni Smith Unavailable [phone] Allergies Allergen (clinical drug ingredient) Drug/Non Drug [...] Interpretation:Normal Performing Lab: Notes/Report: Test performed by [employer] [address] [place], [place] [address] [address], [address], [place] [address] Miles Jenkins MD, Food Mixer CLIA: [id number] Vitamin B12 044 945-6108 pg/mL P-Comprehensive Metabolic Pa raheel (CMP) Reviewed date:11/13/2024 09:04:30 AM Interpretation:Normal Performing Lab: Notes/Report: Test performed by [employer] [address] [place], [place] [address] [address], [address], [place] [address] Miles Jenkins MD, Food Mixer CLIA: [id number] Sodium 139 135-145 mmol/L Potassium 4.6 3.5-5.3 [...] 136 Performing Lab: Notes/Report: Test performed by [employer] [address] [place] [address] , [address], [place] [address] Miles Jenkins MD, Food Mixer CLIA: [id number] Cholesterol 176 <200 mg/dL Triglycerides 194 <150 [...] Word finding difficu lty (R47.89) [facility] Referring Provider First Name Eleni Referring Provider Last Name Sarah Referring Provider Speciality Physician Carry Out Clerk Referred Provider Specialty Neurology General Notes Eleni Smith 09/2024 01:21:51 PM > Needs appt with Ade Yanez Brynn 11/07/2024 01:54:56 PM > faxed to [facility] NeurologyAde Brynn 11/09/2024 10:51:08 AM > spoke with Elvira; referral received Referral Priority Routine Diagnosis 1 Non-recurrent acute serous otitis media of both ears (H65.03) [facility] Referring Provider First Name Eleni Referring Provider Last Name Sarah Referring Provider Speciality Physician Carry Out Clerk Referred Provider Specialty ENT General Notes Eleni Smith 09/2024 01:22:25 PM >[facility] 11/07/2024 01:55:56 PM > faxed to [facility] ENTAde Brynn 11/09/2024 11:31:36 AM > spoke [...] W/U Status Risk Notes Problem Essential hypertension (07564191) Essential hypertension (I10) Active confirmed Problem Mixed hyperlipidemia (238809526) Mixed hyperlipidemia (E78.2) Active confirmed Problem Body mass index 40+ - morbidly obese (806673027) BMI 40.0-44.9, adult (Z68.41) Active confirmed Problem Morbid obesity (604882791) Obesity, morbid, BMI 40.0-49.9 (E66.01) Active confirmed Vital Signs Weight 215.4 lbs 11/07/2024 Blood pressure systolic 132 mm Hg 11/08/19 25 Blood pressure diastolic 72 mm Hg 025 Heart Rate 60 /min 11/07/2024 Height 60 in 11/07/2024 BMI 42.06 kg/m2 11/07/2024 Encounters Encounter Location Date Provider Diagnosis [facility] [address] [facility] [address] [place], [place] [id number] 11/07/2024 Eleni Sarah Dizziness R42 ; Essential [...] Reason: Progress Notes * Davey TRINHDOB: 6 (79 yo F)Acc No.[id number]:11/07/2024 Progress Notes Patient: Chau Davey YBARRA Provider: SEE Riggs :1945 A ge:79 Y S ex:Female Date:11/07/2024 Address:[address] [place] [address] Rd, [id number] Subjective: * Chief Complaints: * 1 . Consult, BW, f/u with Angie Breen. * HPI: H PI: Patient is here today for B Abazab work and to get established with us. [...] ixed hyperlipidemia - E78.2 7 . B NV 40.0-44.9, adult - Z68.41 8 . O besity, morbid, BMI 40.0-49.9 - E66.01 Plan: * Treatment: Value Reference Range V itamin B12 301 528-1823 - pg/mL * Eleni Smith 11/07/2024 10 [...] EDT > no auth required; CPT code 20208; faxed to [facility] Yanet Gibbs 11/20/2024 09:48:13 AM EDT > [...] G 2211 Complex e/[place], [address] CBC WITH AUTO DIFF, 70714 VENIPUNCT, ROUTINE*, 1036F TOBACCO NON-USER, G8950 PREHTN/HTN BP DOC INDCD F/U DOC, G8752 MOST RECENT SYSTOLIC BP < 140MM HG, G8754 MOST RECENT DIASTOLIC BP < 90MM HG * Follow Up: v ia phone to report test results * Images: Drawing:[facility] 2024 Billing Information: * Visit Code: 17802 Office Visit, New Pt., Level 3. * Procedure Codes: G2211 Complex e/[place]. [address] CBC WITH AUTO DIFF. 98880 VENIPUNCT, ROUTINE*. 1036F TOBACCO NON-USER. G8950 PREHTN/HTN BP DOC INDCD F/U DOC. G8752 MOST RECENT SYSTOLIC BP < 140MM HG. G8754 MOST RECENT DIASTOLIC BP < 90MM HG. * Electronic signature of SEE Raphael on 02/18/2025 at 08:03 PM EST Sign off status: Pending * Provider: SEE Riggs Date: 0 11/07/2024 Generated for Troy jorge/Fasundarg/eTransmitting on: 1 04/20/2024 08:03 PM EST History and Physical Notes * HPI [...]
--- NOTE | 2025-02-18 13:31 | MM_ITS ---
PROCEDURE INFORMATION: Exam: Right Diagnostic Breast Tomosynthesis Radiologist Consultation Exam date and time: 02/18/2025 1:45 PM Age: 79 years old Clinical indication: Abnormal CT TECHNIQUE: Imaging protocol: Right Diagnostic tomosynthesis and 2D mammography including computer-aided detection (CAD) when performed. Unilateral or bilateral exam. COMPARISON: No relevant prior studies available. FINDINGS: MAMMOGRAPHY: Breast composition: The breasts are almost entirely fatty. Breast mammogram findings: There is an irregular mass in the right upper outer quadrant with spiculated margins measuring 2.7 cm. IMPRESSION: Spiculated mass in the right breast. Targeted right breast ultrasound is recommended. ASSESSMENT: BI-RADS Category 0: Incomplete- Need Additional Imaging Evaluation.
--- OUTSIDE RECORDS SUMMARY | 2025-02-18 20:01 | XMS_ITS | Clinical Summary ---
Author Organization [facility] Address [address] [place] [address] Phone Care Team Providers Care Maintainer Operator Name Role Phone Unavailable Unavailable Conditions or Problems No information available. Medications No information available. Medications Administered No information available. Allergies, Adverse Reactions, Alerts No information available. Results No information available. Plan of Care No information available. Procedures No information available. Vital Signs No information available. Immunizations No information available. Advance Directives No information available.
--- OUTSIDE RECORDS SUMMARY | 2025-02-18 20:01 | XMS_ITS | Clinical Summary ---
Author Organization [facility] Address [address] [place] [address] Phone Care Team Providers Care Manager Port Name Role Phone Klaudia MONTIEL, Ministerio Petersen Unavailable [phone] LIBERTAD MONTIEL, VANDANA Jonas Primary Care Provider [phone] Reason for Visit and Chief Complaint MRI ARTHROGRAM Problems Includes: Problems addressed during this encounter and other active Problems All Visits Onset Date Resolved Date Provider Condition S tatus Joint Pain Shoulder Left 03/30/2024 Roberta Keyes PA-C Active Last Documented On 4 8:59AM ; [facility] Joint Pain Hip Right 05/20/2022 Kristopher Falcon on PA-C Active Last Documented On 3 10:50AM ; [facility] Joint Pain Left Knee 09/08/2016 Ministerio Rudolph MD Active Last Documented On 7 1:16PM ; [facility] Joint Pain Hip Left 09/08/2016 Ministerio keenan MD Active Last Documented On 7 1:16PM ; [facility] Plan of Treatment No Plan of Treatment Recorded Assessments Includes: Assessments from this encounter No Assessments Recorded Medical Equipment - Implanted Devices Includes: Current Devices No Medical Equipment Recorded Medications Includes: Medications discussed during this encounter and other current Medications Current Medications (continue as prescribed) Losartan Potassium 50 MG Oral Tablet 03/05/2024 Prov ider: VANDANA MAURER MD Diagnosis: Last Documented On 4 9:07AM By Domonique Garcia ; [facility] Medications Administered Includes: Administered Medications from this encounter No Administered Medications Recorded Results Includes: Results discussed during this encounter No Results Recorded For Specified Dates History of Present Illness Includes: History of Present Illness from this encounter No History of Present Illness Recorded Social History No Social History Recorded - Smoking Status Unknown Medical History Includes: Medical History addressed during this encounter No Medical History Recorded Family History Includes: Family History addressed during this encounter No Family History Recorded Review of Systems Includes: Review of Systems from this encounter No Review of Systems Recorded Mental Status Includes: Mental Status from this encounter No Mental Status Recorded Functional Status Includes: Functional Status from this encounter No Functional Status Recorded Physical Exam Includes: Physical Exam from this encounter No Physical Exam Recorded Allergies Includes: Active Allergies Substance Type Reaction Onset Date Resolved Date Statu s Sudafed Allergy 07/26/2019 Active Last Documented On 4 9:07AM ; [facility] Encounters Encounter Provider Location Date Check-In Time Check-Out Time Diagnosis MRI ARTHROGRAM [facility] 3 10:11AM 11:15AM Insurance Includes: Active Insurance Policies Plan Name Member ID Group # Subscriber Relationship Effect shabnam Dates 1 - Medicare Part B [facility] [id number] [employer] Self 03/04/2011 - Unknown 2 - [employer] [id number] [employer] Self 07/26/2019 - Unknown Clinical Notes Includes: Clinical Notes from this encounter No Clinical Notes Recorded
--- OUTSIDE RECORDS SUMMARY | 2025-02-18 20:01 | XMS_ITS | Clinical Summary ---
Author Organization [facility] Address [address] [place] [address] Phone Care Team Providers Care Fruit Stuffer Name Role Phone Klaudia MONTIEL, Ministerio Petersen Unavailable U aashish MAURER MD, VANDANA E Primary Care Provider [phone] Reason for Visit and Chief Complaint The Chief Complaint is: L SHOULDER PAIN Problems Includes: Problems addressed during this encounter and other active Problems Current Visit Onset Date Resolved Date Provider Conditio n Status Joint Pain Shoulder Left 03/30/2024 Roberta Keyes PA-C Active Last Documented On 4 8:59AM ; [facility] Past Visits Onset Date Resolved Date Provider Condition Status Joint Pain Hip Right 05/20/2022 Kristopher Falcon on PA-C Active Last Documented On 3 10:50AM ; [facility] Joint Pain Left Knee 09/08/2016 Ministerio Rudolph MD Active Last Documented On 7 1:16PM ; [facility] Joint Pain Hip Left 09/08/2016 Ministerio keenan MD Active Last Documented On 7 1:16PM ; [facility] Plan of Treatment - Patient screened for future fall risk: documentation of any fall with injury in past year - Last Documented On 03/30/2024 9:29AM ; [facility] She has had a traumatic injury and fall. She likely has a massive cuff tear I have recommended MRI of the left shoulder. We will see her back with my surgeon after the. She understands restrictions at this point - Last Documented On 03/30/2024 9:29AM ; [facility] Pending Tests Order Diagnosis Results Due Ordering Chau craig Radiology - MRI MRI Shoulder Pain in left shoulder Humble Keyes PA-C Last Documented On 4 9:29AM ; [facility] Assessments Includes: Assessments from this encounter Findings Likely massive cuff tear in a 79-year-old - Last Documented On 03/30/2024 9:29AM ; [facility] Medical Equipment - Implanted Devices Includes: Current Devices No Medical Equipment Recorded Medications Includes: Medications discussed during this encounter and other current Medications Discontinued / Stopped on this date on 05/20/2022 Adult Aspirin Regimen 81 MG Oral Tablet Delayed Releas e Provider: Diagnosis: Last Documented On 4 9:07AM By Domonique Garcia ; [facility] Diclofenac Sodium 75 MG Oral Tablet Delayed Release Provider: VANDANA MAURER MD Diagnosis: Last Documented On 4 9:07AM By Domonique Garcia ; [facility] Losartan Potassium 50 MG Oral Tablet Prov ider: VANDANA MAURER MD Diagnosis: Last Documented On 4 9:07AM By Domonique Garcia ; [facility] Pravastatin Sodium 80 MG Oral Tablet Prov ider: VANDANA MAURER MD Diagnosis: Last Documented On 4 9:07AM By Domonique Garcia ; [facility] New / Renewed during this visit Supa Knapp MD on 03/30/2024 traMADol HCl 50 MG Oral Tablet Provider: Supa Knapp MD 7 day supply: 21 tablet, 0 refills Diagnosis: Pain in left shoulder take one tablet by mouth thr ee times per day NEEDED [id number] [address] [address] [place], [id number] - Last Documented On 4 9:21AM By Supa Knapp ; [facility] Current Medications (continue as prescribed) Losartan Potassium 50 MG Oral Tablet 03/05/2024 Prov ider: VANDANA MAURER MD Diagnosis: Last Documented On 4 9:07AM By Domonique Garcia ; [facility] Past Medications on file Meloxicam 15 MG Oral Tablet 11/03/2022 - 02/01/2023 Pr ovider: Amado Matos PA-C Diagnosis: once a day Last Documented On 3 1:47PM By Amado Matos ; [facility] Diclofenac Sodium 75 MG Oral Tablet Delayed Release 04/10/2020 - 07/09/2020 Provider: Ministerio keenan MD Diagnosis: twice a day Last Documented On 1 10:48AM By Pari Farr ; [facility] Diclofenac Sodium 75 MG Oral Tablet Delayed Release 10/04/2019 - 12/03/2019 Provider: Ministerio keenan MD Diagnosis: twice a day Last Documented On 0 12:41PM By Lucero Torres ; [facility] Mobic 15 MG Oral Tablet 07/26/2019 - 09/24/2019 Provid er: Ministerio Rudolph MD Diagnosis: once a day Last Documented On 0 10:36AM By Amado Matos ; [facility] Keflex 500MG Oral Capsule 12/22/2016 - 12/23/2016 Prov ider: Ministerio Rudolph MD Diagnosis: take as directed; TAKE 4 TAB LETS ONE HOUR PRIOR TO PROCEDURE Last Documented On 7 4:04PM By Jia Hill ; [facility] Neurontin 300MG Oral Capsule 12/21/2016 - 04/20/2017 Provider: Ministerio keenan MD Diagnosis: 1 every bedtime Last Documented On 7 9:43AM By Paty Colon ; [facility] TraMADol HCl 50MG Oral Tablet 12/21/2016 - 12/29/2016 Provider: Ministerio keenan MD Diagnosis: 1 tab every 6 hrs prn pain Last Documented On 7 9:43AM By Paty Colon ; [facility] TraMADol HCl 50 MG Tablet 11/22/2016 - 12/05/2016 Provider: Ministerio keenan MD Diagnosis: 2 tablets every 6 hours FOR SURGERY Last Documented On 7 10:18AM By Paty Colon ; [facility] OxyCODONE HCl 5 MG Tablet 11/22/2016 - 12/02/2016 Prov ider: Ministerio Rudolph MD Diagnosis: 1-2 po q 4-6h FOR SURGERY Last Documented On 7 10:18AM By Paty Colon ; [facility] Neurontin 300 MG Capsule 11/22/2016 - 02/20/2017 Provi craig: Ministerio Rudolph MD Diagnosis: 1 every bedtime FOR SURGERY Last Documented On 7 10:17AM By Paty Colon ; [facility] Colace 100 MG Capsule 11/22/2016 - 02/20/2017 Provider : Ministerio Rudolph MD Diagnosis: 1-2 tabs daily FOR SURGERY DO NOT FILL TILL 11/29/16 Last Documented On 7 10:19AM By Paty Colon ; [facility] Acetaminophen 500 MG Tablet 11/22/2016 - 11/30/2016 Pr ovider: Ministerio Rudolph MD Diagnosis: 2 three times a day FOR SURG KATIEDO NOT FILL TILL 11/29/16 Last Documented On 7 10:19AM By Paty Colon ; [facility] Medications Administered Includes: Administered Medications from this encounter No Administered Medications Recorded Vital Signs Includes: Vital Signs from this encounter Vital Name 03/30/2024 09:09A Height (in) 72 Weight (lb) 212 Body Mass Index 28.8 Body Surface Area 2.2 Note: ab Last Documented: On 03/30/2024 9:09AM ; [facility] Results Includes: Results discussed during this encounter No Results Recorded For Specified Dates History of Present Illness Includes: History of Present Illness from this encounter GENOVEVA Trinh is a 79 year old female. - Allergy list reviewed - Problem list reviewed - Medication list reviewed - Previous history of new onset pain 03/28/2024 Injury is not work related or an automotive accident - Patient pain level from 1-10: 10 - Yes, previous treatment. - - Review of medications documented Social History Description Last Updated Caffeine use 03/30/2024 Last Documented On 9:29AM ; [facility] Not exercising regularly 03/30/2024 Last Documented On 4 9:29AM ; [facility] Not using alcohol 11/03/2022 Last Documented On 4 9:07AM ; [facility] Not using drugs 11/03/2022 Last Documented On 4 9:07AM ; [facility] Tobacco non-user 05/20/2022 Last Documented On 4 9:07AM ; [facility] No recent change in diet 05/20/2022 Last Documented On 4 9:07AM ; [facility] Not a current smoker. 05/20/2022 Last Documented On 4 9:07AM ; [facility] Non-smoker 04/10/2020 Last Documented On 4 9:07AM ; [facility] No recent change in diet 09/17/2016 Last Documented On 4 9:07AM ; [facility] Not a current smoker 09/17/2016 Last Documented On 4 9:07AM ; [facility] No tobacco use 09/17/2016 Last Documented On 4 9:07AM ; [facility] Smoking status : Never smoker 09/17/2016 Last Documented On 4 9:07AM ; [facility] Procedures and Surgical History Includes: Procedures from this encounter Procedures Code Diagnosis Performing Provider Service L ocation Service Date an X-ray was performed 61971 Last Documented On 4 9:08AM ; [facility] [place] [id number] Last Documented On 4 9:08AM ; [facility] brace Last Documented On 4 9:08AM ; [facility] Surgical History Last Updated History of total hip replacement 023 Last Documented On 4 9:07AM ; [facility] History of appendectomy 09/17/2016 Last Documented On 4 9:07AM ; [facility] Medical History Includes: Medical History addressed during this encounter Description Last Updated History of arthritis 05/20/2022 Last Documented On 4 9:07AM ; [facility] History of Hypertension 05/20/2022 Last Documented On 4 9:07AM ; [facility] Intermittent hypertension 07/26/2019 Last Documented On 4 9:07AM ; [facility] HIGH CHOLESTEROL 09/17/2016 Last Documented On 4 9:07AM ; [facility] Arthritic joint problems 09/17/2016 Last Documented On 4 9:07AM ; [facility] Family History Includes: Family History addressed during this encounter Description Last Updated Diabetes mellitus 05/20/2022 Last Documented On 4 9:07AM ; [facility] Family history of cancer 07/26/2019 Last Documented On 4 9:07AM ; [facility] Family history of diabetes mellitus 07/04 Last Documented On 4 9:07AM ; [facility] Fraternal history of family history of c ancer BROTHER 09/17/2016 Last Documented On 4 9:07AM ; [facility] Maternal history of diabetes mellitus [place] THER, SISTER 09/17/2016 Last Documented On 4 9:07AM ; [facility] Maternal history of rheumatoid arthritis MOTHER, SISTER 09/17/2016 Last Documented On 4 9:07AM ; [facility] Review of Systems Includes: Review of Systems from this encounter Systemic: Not feeling tired, no recent weight loss, and no recent weight gain. Head: No headache. Sinus pain. Eyes: No vision problems and no Cataracts. Glasses/Contacts. No Glaucoma. Otolaryngeal: Hearing loss. No tinnitus. Cardiovascular: No chest pain or discomfort and no palpitations. Hypertension and High Cholesterol. Pulmonary: No daytime asthma symptoms and no chronic cough. No wheezing. Gastrointestinal: Heartburn. No abdominal pain. Indigestion. No Peptic Ulcer, no GI Stomach Bleed, and no Ulcers. Acid Reflux. Endocrine: No hot flashes, no muscle weakness, no Diabetes, no Hypothyroid, and no Hyperthyroid. Hematologic: No easy bleeding, no tendency for easy bruising, and no Anemia. Musculoskeletal: Arthritis. No lower back pain. No soft tissue swelling and no localized joint pain. Neurological: No dizziness, no convulsions, and no numbness. Psychological: No anxiety, no emotional lability, no depression, and no insomnia. Not crying for no reason. Skin: No dry skin. No Ulcers, no Scars, and no rash. Allergic and Immunologic: No complaint of seasonal allergic reaction. Mental Status Includes: Mental Status from this encounter Description No anxiety Functional Status Includes: Functional Status from this encounter No Functional Status Recorded Physical Exam Includes: Physical Exam from this encounter Allergies Includes: Active Allergies Substance Type Reaction Onset Date Resolved Date Statu s Sudafed Allergy 07/26/2019 Active Last Documented On 4 9:07AM ; [facility] Encounters Encounter Provider Location Date Check-In Time Check-Out Time Diagnosis Next Available Non-Specified Physician Roberta Keyes PA-C [facility] 03/30/20 24 8:42AM 9:06AM Insurance Includes: Active Insurance Policies Plan Name Member ID Group # Subscriber Relationship Effect shabnam Dates 1 - Medicare Part B [facility] [id number] Davey Trinh Self 03/04/2011 - Unknown 2 - [employer] [id number] Davey Trinh Self 07/26/2019 - Unknown Clinical Notes Includes: Clinical Notes from this encounter * Progress note Date Encounter Last Documented by 03/30/2024 Next Available Non-S pecified Physician Last documented on 03/30/2024; 9:29 AM, Roberta Keyes PA-C; [facility] Active Problems & Conditions - Joint Pain in the Left Hip - Joint Pain in the Left Knee - Joint Pain in the Right Hip - Joint Pain, Localized in the Left Shoulder Chief Complaint The Chief Complaint is: L SHOULDER PAIN. Referred Here Referred by VANDANA MAURER. History of Present Illness Davey Trinh is a 79 year old female. - Allergy list reviewed - Problem list reviewed - Medication list reviewed - Previous history of new onset pain 03/28/2024 Injury is not work related or an automotive accident - Patient pain level from 1-10: 10 - Yes, previous treatment. - - Review of medications documented Current Medication - Losartan Potassium 50 MG Oral Tablet 90 days, 0 refills Past Medical/Surgical History Reported: Medical: Arthritic joint problems. Intermittent hypertension. Diagnoses: Hypertension. Arthritis HIGH CHOLESTEROL. Surgical: - Appendectomy - Total hip replacement Social History Not a current smoker. Current diet: No recent change in diet. No recent change in diet. Caffeine use: Caffeine use. Tobacco use: No tobacco use and not a current smoker. Tobacco non-user and non-smoker. Smoking status: Never smoker. Alcohol: Not using alcohol. Drug Use: Not using drugs. Habits: Not exercising regularly. Allergies - Sudafed Family History Cancer Diabetes mellitus Diabetes mellitus Maternal: Diabetes mellitus MOTHER, SISTER Rheumatoid arthritis MOTHER, SISTER Fraternal: Cancer BROTHER Review Of Systems Systemic: Not feeling tired, no recent weight loss, and no recent weight gain. Head: No headache. Sinus pain. Eyes: No vision problems and no Cataracts. Glasses/Contacts. No Glaucoma. Otolaryngeal: Hearing loss. No tinnitus. Cardiovascular: No chest pain or discomfort and no palpitations. Hypertension and High Cholesterol. Pulmonary: No daytime asthma symptoms and no chronic cough. No wheezing. Gastrointestinal: Heartburn. No abdominal pain. Indigestion. No Peptic Ulcer, no GI Stomach Bleed, and no Ulcers. Acid Reflux. Endocrine: No hot flashes, no muscle weakness, no Diabetes, no Hypothyroid, and no Hyperthyroid. Hematologic: No easy bleeding, no tendency for easy bruising, and no Anemia. Musculoskeletal: Arthritis. No lower back pain. No soft tissue swelling and no localized joint pain. Neurological: No dizziness, no convulsions, and no numbness. Psychological: No anxiety, no emotional lability, no depression, and no insomnia. Not crying for no reason. Skin: No dry skin. No Ulcers, no Scars, and no rash. Allergic and Immunologic: No complaint of seasonal allergic reaction. Physical Findings - Vitals taken 03/30/2024 09:09 am ab Height 72 in Weight 212 lbs Body Mass Index 28.8 kg/m2 Body Surface Area 2.2 m2 General Exam: The patient is awake and alert. No acute distress. Normal mood and affect for age. Well groomed and nourished Neuro: Sensation was intact to light touch over the extremity. Vascular: +2 radial pulses. No edema. Derm: No signs of active infection. No acute skin changes. Musculoskeletal: Normal gait and station. No muscle atrophy. No joint effusion. No muscle or bony deformity. Patient has pain with active forward flexion. Full passive motion. There is pain and weakness with supraspinatus testing.Empty and full can test were not even able to be performed she has a positive drop-arm test Tests X-ray report reviewed shows no fracture of the humerus. Questionable fracture of the glenoid which age is undetermined Assessment Likely massive cuff tear in a 79-year-old Previous Tests Imaging: X-Ray: An X-ray was performed. CT Scan: CT scan. Basic Management Procedures And Services: - Brace Counseling/Education - Tobacco non-user - Use of tobacco assessment performed Plan StartCited - Pain in left shoulder Radiology/MRI: MRI Shoulder Instructions: L Shoulder MRI F/U W HUMZA traMADol HCl 50 MG tablet take one tablet by mouth three times per day NEEDED, 7 days, 0 refills EndCited - Patient screened for future fall risk: documentation of any fall with injury in past year She has had a traumatic injury and fall. She likely has a massive cuff tear I have recommended MRI of the left shoulder. We will see her back with my surgeon after the. She understands restrictions at this point Notes This dictation was done with voice recognition software and may contain errors and omissions. Care Team - VANDANA MAURER MD - RACE RELATIONS PROFESSOR
--- OUTSIDE RECORDS SUMMARY | 2025-02-18 20:02 | XMS_ITS | Clinical Summary ---
Author Organization [facility] , [facility] Address [address] [place] [address] Phone Care Team Providers Care Sailmaker Name Role Phone Klaudia MONTIEL, Ministerio Petersen Unavailable + [phone] LIBERTAD MONTIEL, VANDANA Jonas Primary Care Provider [phone] Reason for Visit and Chief Complaint The Chief Complaint is: Right Hip Pain Problems Includes: Problems addressed during this encounter and other active Problems All Visits Onset Date Resolved Date Provider Condition S tatus Joint Pain Shoulder Left 03/30/2024 Roberta Keyes PA-C Active Last Documented On 4 8:59AM ; [facility] Joint Pain Hip Right 05/20/2022 Kristopher Falcon on PA-C Active Last Documented On 3 10:50AM ; [facility] Joint Pain Left Knee 09/08/2016 Ministerio Rudolph MD Active Last Documented On 7 1:16PM ; [facility] Joint Pain Hip Left 09/08/2016 Ministerio keenan MD Active Last Documented On 7 1:16PM ; [facility] Plan of Treatment Fall Risk Assessment: This [...] - Last Documented On 11/03/2022 1:46PM ; [facility], [facility] patient remarks her symptoms have significant improved since last interval exam, she is found anti-inflammatory helpful in the past. Wants to try meloxicam. Encourage physical therapy for hip abductor strengthening and minimus strengthening and soft tissue modalities. We will plan for follow-up when necessary - Last Documented On 11/03/2022 1:46PM ; [facility], [facility] Pending Tests Order Diagnosis Results Due Ordering Chau Atkinson - Physical Therapy Hip Overweight 11/03/22 Amado Matos PA-C Last Documented On 3 1:43PM ; [facility] Instructions to patient Lose weight Last Documented On 3 1:12PM ; [facility], [facility] Assessments Includes: Assessments from this encounter Findings - Overweight - Last Documented On 11/03/2022 1:46PM ; [facility] 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 MRI reveals possible small labral tear, high-grade partial tear of the gluteus minimus tendon - Last Documented On 11/03/2022 1:46PM ; [facility] History of left OBDULIO - Last Documented On 11/03/2022 1:46PM ; [facility], [facility] Instructions Includes: Instructions from this encounter Instructions to patient Lose weight Last Documented On 3 1:12PM ; [facility], [facility] Medical Equipment - Implanted Devices Includes: Current Devices No Medical Equipment Recorded Medications Includes: Medications discussed during this encounter and other current Medications New / Renewed during this visit Amado Matos PA-C on 11/03/2022 Meloxicam 15 MG Oral Tablet Provider: Amado Matos PA-C 30 day supply: 30 tablet, 2 refills Diagnosis: once a day [id number] - [address] [address] [place], [phone] - Last Documented On 3 1:47PM By Amado Matos ; [facility], [facility] Current Medications (continue as prescribed) Losartan Potassium 50 MG Oral Tablet 03/05/2024 Prov ider: VANDANA MAURER MD Diagnosis: Last Documented On 4 9:07AM By Domonique Garcia ; [facility] Past Medications on file traMADol HCl 50 MG Oral Tablet 03/30/2024 - 04/06/2024 Provider: Supa Knapp MD Diagnosis: Pain in left margie ulder take one tablet by mouth thr ee times per day NEEDED Last Documented On 4 9:21AM By Supa Knapp ; [facility] Diclofenac Sodium 75 MG Oral Tablet Delayed Release 04/10/2020 - 07/09/2020 Provider: Ministerio keenan MD Diagnosis: twice a day Last Documented On 1 10:48AM By Pari Farr ; [facility] Diclofenac Sodium 75 MG Oral Tablet Delayed Release 10/04/2019 - 12/03/2019 Provider: Ministerio keenan MD Diagnosis: twice a day Last Documented On 0 12:41PM By Lucero Torres ; [facility] Mobic 15 MG Oral Tablet 07/26/2019 - 09/24/2019 Provid er: Ministerio Rudolph MD Diagnosis: once a day Last Documented On 0 10:36AM By Amado Matos ; [facility] Keflex 500MG Oral Capsule 12/22/2016 - 12/23/2016 Prov ider: Ministerio Rudolph MD Diagnosis: take as directed; TAKE 4 TAB LETS ONE HOUR PRIOR TO PROCEDURE Last Documented On 7 4:04PM By Jia Hill ; [facility] Neurontin 300MG Oral Capsule 12/21/2016 - 04/20/2017 Provider: Ministerio keenan MD Diagnosis: 1 every bedtime Last Documented On 7 9:43AM By Paty Colon ; [facility] TraMADol HCl 50MG Oral Tablet 12/21/2016 - 12/29/2016 Provider: Ministerio keenan MD Diagnosis: 1 tab every 6 hrs prn pain Last Documented On 7 9:43AM By Paty Colon ; [facility] TraMADol HCl 50 MG Tablet 11/22/2016 - 12/05/2016 Provider: Ministerio keenan MD Diagnosis: 2 tablets every 6 hours FOR SURGERY Last Documented On 7 10:18AM By Paty Colon ; [facility], [facility] OxyCODONE HCl 5 MG Tablet 11/22/2016 - 12/02/2016 Prov ider: Ministerio Rudolph MD Diagnosis: 1-2 po q 4-6h FOR SURGERY Last Documented On 7 10:18AM By Paty Colon ; [facility], [facility] Neurontin 300 MG Capsule 11/22/2016 - 02/20/2017 Provi craig: Ministerio Rudolph MD Diagnosis: 1 every bedtime FOR SURGERY Last Documented On 7 10:17AM By Paty Colon ; [facility], [facility] Colace 100 MG Capsule 11/22/2016 - 02/20/2017 Provider : Ministerio Rudolph MD Diagnosis: 1-2 tabs daily FOR SURGERY DO NOT FILL TILL 11/29/16 Last Documented On 7 10:19AM By Paty Colon ; [facility], [facility] Acetaminophen 500 MG Tablet 11/22/2016 - 11/30/2016 Pr ovider: Ministerio Rudolph MD Diagnosis: 2 three times a day FOR SURG KATIEDO NOT FILL TILL 11/29/16 Last Documented On 7 10:19AM By Paty Colon ; [facility] Medications Administered Includes: Administered Medications from this encounter No Administered Medications Recorded Vital Signs Includes: Vital Signs from this encounter Vital Name 11/03/2022 01:13P Height (in) 70 Weight (lb) 215 Body Mass Index 30.8 Body Surface Area 2.2 Note: dp Last Documented: On 11/03/2022 1:13PM ; [facility] Results Includes: Results discussed during this encounter No Results Recorded For Specified Dates History of Present Illness Includes: History of Present Illness from this encounter GENOVEVA Trinh is a 77 year old female. - Allergy list reviewed - Problem list reviewed - Medication list reviewed - Previous history of new onset pain Injury is not work related or an automotive accident - No previous treatment. Social History Description Last Updated Not exercising regularly 03/30/2024 Last Documented On 3 1:13PM ; [facility] No caffeine use 11/03/2022 Last Documented On 3 1:46PM ; [facility] No recent change in diet 11/03/2022 Last Documented On 3 1:46PM ; [facility] Not a current smoker. 11/03/2022 Last Documented On 3 1:46PM ; [facility] Not using alcohol 11/03/2022 Last Documented On 3 1:46PM ; [facility] Not using drugs 11/03/2022 Last Documented On 3 1:46PM ; [facility] Tobacco non-user 05/20/2022 Last Documented On 3 1:13PM ; [facility] Non-smoker 04/10/2020 Last Documented On 3 1:13PM ; [facility] Smoking Status Unknown Procedures and Surgical History Includes: Procedures from this encounter Procedures Code Diagnosis Performing Provider Service L ocation Service Date use of tobacco assessment performed 1000F Last Documented On 3 1:12PM ; [facility] patient screened for future fall risk: documentation of any fall with injury in past year 1100F Last Documented On 3 1:12PM ; [facility] an X-ray was performed 96182 Last Documented On 3 1:13PM ; [facility] Surgical History Last Updated History of total hip replacement 023 Last Documented On 3 1:13PM ; [facility] History of appendectomy 09/17/2016 Last Documented On 3 1:13PM ; [facility] Medical History Includes: Medical History addressed during this encounter Description Last Updated History of arthritis 05/20/2022 Last Documented On 3 1:13PM ; [facility] History of Hypertension 05/20/2022 Last Documented On 3 1:13PM ; [facility] Intermittent hypertension 07/26/2019 Last Documented On 3 1:13PM ; [facility] HIGH CHOLESTEROL 09/17/2016 Last Documented On 3 1:13PM ; [facility], [facility] Arthritic joint problems 09/17/2016 Last Documented On 3 1:13PM ; [facility], [facility] Family History Includes: Family History addressed during this encounter Description Last Updated Diabetes mellitus 05/20/2022 Last Documented On 3 1:13PM ; [facility], [facility] Family history of cancer 07/26/2019 Last Documented On 3 1:13PM ; [facility], [facility] Family history of diabetes mellitus /2 06/2019 Last Documented On 3 1:13PM ; [facility], [facility] Fraternal history of family history of c ancer BROTHER 09/17/2016 Last Documented On 3 1:13PM ; [facility], [facility] Maternal history of diabetes mellitus [place] THER, SISTER 09/17/2016 Last Documented On 3 1:13PM ; [facility], [facility] Maternal history of rheumatoid arthritis MOTHER, SISTER 09/17/2016 Last Documented On 3 1:13PM ; [facility], [facility] Review of Systems Includes: Review of Systems from this encounter Systemic: Not feeling tired, no recent weight loss, and no recent weight gain. Head: No headache and no sinus pain. Eyes: No vision problems, no Cataracts, no Glasses/Contacts, and no Glaucoma. Otolaryngeal: No hearing loss and no tinnitus. Cardiovascular: No chest pain or discomfort, no palpitations, no Hypertension, and no High Cholesterol. Pulmonary: No daytime asthma symptoms and no chronic cough. No wheezing. Gastrointestinal: No heartburn and no abdominal pain. No Indigestion, no Acid Reflux, no Peptic Ulcer, no GI Stomach Bleed, and no Ulcers. Endocrine: No hot flashes, no muscle weakness, no Diabetes, no Hypothyroid, and no Hyperthyroid. Hematologic: No easy bleeding, no tendency for easy bruising, and no Anemia. Musculoskeletal: No Arthritis and no lower back pain. No soft tissue swelling [...] Reaction Onset Date Resolved Date Statu s Sudarelid Allergy 07/26/2019 Active Last Documented On 4 9:07AM ; [facility], [facility] Encounters Encounter Provider Location Date Check-In Time Check-Out Time Diagnosis Follow Up [facility] 12:55PM 1:43PM Overweight Insurance Includes: Active Insurance Policies Plan Name Member ID Group # Subscriber Relationship Effect shabnam Dates 1 - Medicare Part B [facility] [id number] Davey Trinh Self 03/04/2011 - Unknown 2 - [employer] [id number] Davey Trinh Self 07/26/2019 - Unknown Clinical Notes Includes: Clinical Notes from this encounter * Progress note Date Encounter Last Documented by 11/03/2022 Follow Up Last documented on 11/03/2022; 1:46 PM, Amado Matos PA-C; [facility], [facility] Active Problems & Conditions - Joint Pain in the Left Hip - Joint Pain in the Left Knee - Joint Pain in the Right Hip Chief Complaint The Chief Complaint is: Right Hip Pain. Referred Here Referred by self. History of Present Illness Davey Trinh is a 77 year old female. - Allergy list reviewed - Problem list reviewed - Medication list reviewed - Previous history of new onset pain Injury is not work related or an automotive accident - No previous treatment. Current Medication - Adult Aspirin Regimen 81 MG Oral Tablet Delayed Release take as directed 0 days, 0 refills - Diclofenac Sodium 75 MG Oral Tablet Delayed Release use as directed 90 days, 0 refills - Losartan Potassium 50 MG Oral Tablet take as directed 90 days, 0 refills - Pravastatin Sodium 80 MG Oral Tablet take as directed 90 days, 0 refills Past Medical/Surgical History Reported: Medical: Arthritic joint problems. Intermittent hypertension. Diagnoses: Hypertension. Arthritis HIGH CHOLESTEROL. Surgical: - Appendectomy - Total hip replacement Social History Not a current smoker. Current diet: No recent change in diet. Caffeine use: No caffeine use. Tobacco use: Tobacco non-user and non-smoker. Alcohol: Not using alcohol. Drug Use: Not using drugs. Habits: Not exercising regularly. Allergies - Sudafed Family History Cancer Diabetes mellitus Diabetes mellitus Maternal: Diabetes mellitus MOTHER, SISTER Rheumatoid arthritis MOTHER, SISTER Fraternal: Cancer BROTHER Review Of Systems Systemic: Not feeling tired, no recent weight loss, and no recent weight gain. Head: No headache and no sinus pain. Eyes: No vision problems, no Cataracts, no Glasses/Contacts, and no Glaucoma. Otolaryngeal: No hearing loss and no tinnitus. Cardiovascular: No chest pain or discomfort, no palpitations, no Hypertension, and no High Cholesterol. Pulmonary: No daytime asthma symptoms and no chronic cough. No wheezing. Gastrointestinal: No heartburn and no abdominal pain. No Indigestion, no Acid Reflux, no Peptic Ulcer, no GI Stomach Bleed, and no Ulcers. Endocrine: No hot flashes, no muscle weakness, no Diabetes, no Hypothyroid, and no Hyperthyroid. Hematologic: No easy bleeding, no tendency for easy bruising, and no Anemia. Musculoskeletal: No Arthritis and no lower back pain. No soft tissue swelling and no localized joint pain. Neurological: No dizziness, no convulsions, and no numbness. Psychological: No anxiety, no emotional lability, no depression, and no insomnia. Not crying for no reason. Skin: No dry skin. No Ulcers, no Scars, and no rash. Allergic and Immunologic: No complaint of seasonal allergic reaction. Physical Findings - Vitals taken 11/03/2022 01:13 pm dp Height 70 in Weight 215 lbs Body Mass Index 30.8 kg/m2 Body Surface Area 2.2 m2 patient alert and oriented 3 Moderately overweight Mild stiff hip gait Right hip exam Skin clean, dry and intact LLD 5 mm long moderate TTP greater trochanter, gluteus medius musculature Right hip Flexion 95, IR 0, ER [25 Straight leg raise unable to perform Abductor Strength 2/5 fires TA, Gastroc, Quad Sensation intact to light touch throughout Tests two-view x-ray of the right hip taken last interval exam demonstrates mild possibly moderate joint space narrowing, no signs of fracture MRI of the right hip with contrast reveals mild degenerative changes, defect at the base of the anterior labrum and anterior portion of the lateral labrum suspicious for tear. 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 MRI reveals possible small labral tear, high-grade partial tear of the gluteus minimus tendon History of left OBDULIO Previous Tests Imaging: X-Ray: An X-ray was performed. Counseling/Education - Lose weight Plan StartCited - Other Meloxicam 15 MG tablet once a day, 30 days, 2 refills EndCited StartCited - Overweight Therapy/Physical Therapy: Hip Instructions: See PT order attached EndCited Fall Risk Assessment: This patient has been [...] therapy has been discussed with the patient. patient remarks her symptoms have significant improved since last interval exam, she is found anti-inflammatory helpful in the past. Wants to try meloxicam. Encourage physical therapy for hip abductor strengthening and minimus strengthening and soft tissue modalities. We will plan for follow-up when necessary Notes This dictation was done with voice recognition software and may contain errors and omissions. Practice Management Use of tobacco assessment performed and patient screened for future fall risk documentation of any fall with injury in past year. Care Team - VANDANA MAURER MD - CHICK SEXER
--- OUTSIDE RECORDS SUMMARY | 2025-02-18 20:02 | XMS_ITS | Patient Health Record ---
Author [facility] Address [address] [place] [id number] Care Team Providers Care Service Coordinator Name Role Phone Ky Jaime Unavailable [phone] Eleni Smith Unavailable [phone] Allergies Allergen (clinical drug ingredient) Drug/Non Drug [...] date:11/13/2024 09:04:30 AM Interpretation:Normal Performing Lab: Notes/Report: CLIA: [id number] Miles Jenkins MD, Operating System Programmer [address] [place] [address] [place] [address] Test performed by [employer] Vitamin B12 471 689-1477 pg/mL P-Comprehensive Metabolic Pa raheel (CMP) Reviewed date:11/13/2024 09:04:30 AM Interpretation:Normal Performing Lab: Notes/Report: Test performed by [employer] [address] [place] [address] [place] [address] Miles Jenkins MD, Operating System Programmer CLIA: [id number] Sodium 139 135-145 mmol/L Potassium 4.6 3.5-5.3 [...] 136 Performing Lab: Notes/Report: Test performed by [facility], [employer] [address] [place] [address] , [address], [place] [address] Miles Jenkins MD, Operating System Programmer CLIA: [id number] Cholesterol 176 <200 mg/dL Triglycerides 194 <150 [...] 09:48:21 AM Interpretation:Abnormal Performing Lab: Notes/Report: Abnormal H-BUN/CREAT Reviewed date:11/20/2024 09:02:47 AM Interpretation:Normal Performing Lab: Notes/Report: BUN 14 7-17 mg/dl CREATT 0.80 0.52-1.04 mg/dl GFRAA 84 >60 ML/MIN EGFR 69 >60 ml/min Reason For Referral Diagnosis 1 Dizziness (R42) Diagnosis 2 Word finding difficu lty (R47.89) [facility] Referring Provider First Name Eleni Referring Provider Last Name Sarah Referring Provider Speciality Physician Plate Finisher Referred Provider Specialty Neurology General Notes Eleni Smith 09/2024 01:21:51 PM > Needs appt with Ade Yanez Brynn 11/07/2024 01:54:56 PM > fax[facility] to [facility] NeurologyAde Brynn 11/09/2024 10:51:08 AM > spoke with Elvira; referral received Referral Priority Routine Diagnosis 1 Non-recurrent acute serous otitis media of both ears (H65.03) [facility] Referring Provider First Name Eleni Referring Provider Last Name Sarah Referring Provider Speciality Physician Plate Finisher Referred Provider Specialty ENT General Notes Eleni Smith 09/2024 01:22:25 PM >[facility] 11/07/2024 01:55:56 PM > faxed to [facility] ENT, Miguelina Booker 11/09/2024 11:31:36 AM > spoke with Nael; received by ENT Referral Priority Routine Medications Medication SIG (Take, Route, Frequency, Duration) Notes Start Date End Date Status Flonase Allergy Relief 50 MCG/ACT 1 spray in each nostril Nasally Once a day; Duration: 90 days Active Diclofenac Sodium 75 MG 1 tablet as need ed Orally Twice a day; Duration: 90 days Active Aspirin 81 MG 1 tablet Orally Once a day Active Pravastatin Sodium 80 MG 1 tablet Orally Once a day; Duration: 90 days Active Losartan Potassium 50 MG 1 tablet Orally Once a day; Duration: 90 days Active Problems Problem Type SNOMED Code ICD Code Onset Dates Problem Status W/U Status Risk Notes Problem Essential hypertension (74706830) Essential hypertension (I10) Active confirmed Problem Mixed hyperlipidemia (360797890) Mixed hyperlipidemia (E78.2) Active confirmed Problem Body mass index 40+ - morbidly obese (034029958) BMI 40.0-44.9, adult (Z68.41) Active confirmed Problem Morbid obesity (546084685) Obesity, morbid, BMI 40.0-49.9 (E66.01) Active confirmed Problem Tomography - chest abnormal (834445553) Abnormal CT scan, chest (R93.89) Active confirmed Vital Signs Heart Rate 60 /min 11/07/2024 Blood pressure diastolic 72 mm Hg 11/07/2024 Height 60 in 11/07/2024 Blood pressure systolic 132 mm Hg 11/07/2024 Weight 215.4 lbs 11/07/2024 BMI 42.06 kg/m2 11/07/2024 Encounters Encounter Location Date Provider Diagnosis [facility] [address] [facility] [address] [place] [id number] 11/07/2024 Eleni Crowdy Dizziness R42 ; Essential hypertension I10 ; Word finding difficulty R47.89 ; Lung density present on imaging study J98.4 ; Non-recurrent acute serous otitis media of both ears H65.03 ; Mixed hyperlipidemia E78.2 ; BMI 40.0-44.9, adult Z68.41 and Obesity, morbid, BMI 40.0-49.9 E66.01 [facility] [address] [place] [id number] 11/12/2024 Ky Capron [facility] [address] [employer] [id number] 11/13/2024 Eleni Smith [facility] [facility] [employer] [address] [employer] [phone] 11/20/2024 Eleni Smith [facility] [facility] [address] [employer] [id number] 12/04/2024 Eleni Smith [facility] [facility] [address] [employer] [id number] 12/14/2024 Ky Combsberry [facility] [facility] [address] [employer] [id number] 12/25/2024 Eleni Smith Assessments Encounter Date Diagnosis (ICD [...] Treatment Pending Test Test Name Order Date xUltrasound: liver 11/26/2024 Mammogram : Diagnostic Right Breast 11/03 Insurance Providers Payer Name Payer Address Payer Phone Subscriber Number Group Number Insured Name Patient Relationship to Insured Coverage Start Date Coverage End Date MEDICARE PART B [address] [address] [place] [id number] Davey Trinh Self - patient is the insured [employer] [address] [place] [address] [phone] [id number] Davey Trinh Self - patient is the insured Medical (General) History Medical History History ICD Code Sinus High Cholesterol hypertension Surgical History Surgery Date(Month/Year) tubal ligation 1972 appendectomy 1994 left hip replacement 2016
--- OUTSIDE RECORDS SUMMARY | 2025-02-18 20:02 | XMS_ITS | Clinical Summary ---
Author Organization [facility] , [facility] Address [address] [place] [address] Phone Care Team Providers Care Walking Dragline Oiler Name Role Phone Klaudia MONTIEL, Ministerio Petersen Unavailable + [phone] LIBERTAD MONTIEL, VANDANA Jonas Primary Care Provider [phone] Reason for Visit and Chief Complaint Injections for MRA Problems Includes: Problems addressed during this encounter and other active Problems All Visits Onset Date Resolved Date Provider Condition S tatus Joint Pain Shoulder Left 03/30/2024 Roberta Keyes PA-C Active Last Documented On 4 8:59AM ; [facility] Joint Pain Hip Right 05/20/2022 Kristopher Falcon on PA-C Active Last Documented On 3 10:50AM ; [facility], [facility] Joint Pain Left Knee 09/08/2016 Ministerio Rudolph MD Active Last Documented On 7 1:16PM ; [facility], [facility] Joint Pain Hip Left 09/08/2016 Ministerio keenan MD Active Last Documented On 7 1:16PM ; [facility], [facility] Plan of Treatment No Plan of Treatment [...] On 4 9:07AM By Domonique Garcia ; [facility] Medications Administered Includes: Administered Medications from [...] Active Last Documented On 4 9:07AM ; [facility] Encounters Encounter Provider Location Date Check-In Time Check-Out Time Diagnosis Injections for MRA [facility] 3 10:11AM 11:59PM Insurance Includes: Active Insurance Policies Plan Name Member ID Group # Subscriber Relationship Effect shabnam Dates 1 - Medicare Part B [facility] [id number] [employer] Self 03/04/2011 - Unknown 2 - [employer] [id number] [employer] Self 07/26/2019 - Unknown Clinical Notes Includes: Clinical Notes from this encounter No Clinical Notes Recorded
--- OUTSIDE RECORDS SUMMARY | 2025-02-18 20:03 | XMS_ITS | Data Portability ---
Author Organization [facility] Address [address] [place] [address] Care Team Providers Care Occupational Medicine Physician Name Role Phone BOBBY SERRANO Admitting Supervisor VANDANA MAURER Primary Care Provider Assessment No assessment recorded. Plan of Treatment Reminders Order Date Submit Date Provider Last Modified By Organization Details Last Modified Time Details Appointments None record ed. Lab None record ed. Referral None record ed. Procedures None record ed. Surgeries None record ed. Imaging None record ed. Medication Orders None record ed. Patient TargetsNo targets recorded. Patient Instructions Encounter Date Encounter Id Patient Instructions Last Modified By Organization Details Last Modified Time 03/24/2023 [id number] recheck 1 wk dkielar Not available 09:56:47 [...] drops. dkielar Not available 03/24/2023 09:48:30 2023 [id number] tomorrow restrictions are lifted,stop moxifloxacin and begin pred/ketorolac taper per instructions(revie tue with pt/daughter) recheck 1 month refract ou and dilate od dkielar Not available 2023 08:10:38 04/25/2023 [id number] stable po exam M R with +2.75 NL recheck 6 months complete exam dkielar Not available 04/25/2023 10:08:54 10/27/2023 [id number] stable exam recheck 1 yr dkielar Not available 10/27/2023 10:19:09 Reason for Referral None Reported. Results Created Date Observation Date Name Description Value Unit Range Abnormal Flag Note LastModifiedBy Organization Detail LastModifiedTime 03/09/20 23 02/17/2023 intra ocula r lens biome try No observ ation record ed. BARCODE Not Available 2022 11:30:53 Result Notes None recorded. Problems Name Problem SNOMED Code Status Onset Date Resolution Date Notes Provider Name and Address Organization Details Recorded Time Combined form of senile cataract 74249850 Completed 201812/22/2018 BOBBY SERRANO MD [address] [place] [address], [phone], [facility] 9 09:51:35 Posterior vitreous detachment 851826659 Active 2018 BOBBY SERRANO MD [address] [place] [address], [phone], [facility] 3 08:36:43 Myopia 45367363 Active 2018 BOBBY SERRANO MD [address] [place] [address], [phone], [facility] 3 08:36:46 Regular astigmatism 55759323 Active 2018 BOBBY SERRANO MD [address] [place] [address], [phone], [facility] 3 08:36:43 Presbyopia 54803513 Active 2018 BOBBY SERRANO MD [address] [place] [address], [address], [facility] 3 08:36:43 Secondary cataract 546291844 Active 2022 BOBBY SERRANO MD [address] [place] [address], [phone], [facility] 3 08:08:05 Problem Notes None recorded. Procedures Surgical History Date Name Laterality Status Provider Name and Address Organization Details Recorded Time 12/09/19 24 DAK - Destruction BN Lesions completed Her Hancock [facility] 12/09/2023 09:02:00 04/25/19 24 Refraction completed BOBBY SERRANO MD [address] [place] [address], [phone], [facility] 04/25/2023 09:55:56 03/23/20 23 Cataract Extraction - Kielar completed BOBBY SERRANO MD [address] [place] [address], [phone], [facility] 03/23/2023 08:39:42 03/23/20 23 cataract extraction and implantation of intraocular lens completed Bennie Desir [facility] 03/24/2023 09:35:50 01/11/20 23 Axial Length, A-Scan completed BOBBY SERRANO MD [address] [place] [address], [phone], [facility] 01/10/2023 08:49:44 12/23/19 19 Refraction completed BOBBY SERRANO MD [address] [place] [address], [phone], [facility] 12/22/2018 09:51:09 10/31/19 19 Cataract (left) removal with iol completed Laine Cao [facility] 10/31/2018 08:04:19 10/04/19 19 Axial Length, A-Scan completed BOBBY SERRANO MD [address] [place] [address], [phone], [facility] 10/03/2018 17:00:52 Appendectomy completed Eugenie Oh [facility] 03/23/2018 14:51:20 Imaging Results None recorded. Procedure Notes None recorded. Medical Equipment None Reported. Allergies Allergen ID Allergen Name Allergen Category Reaction Reaction Severity Criticality Documentation Date Start Date Code Code System Note Provider Name and Address Organization Details Recorded Time 856530 pseudoeph edrine Not available Not available Not available Not available 03/23/2018 8896 RxNorm [email or web address] 8 14:48:25 Medications Name Sig Start Date Stop Date Status Note LastModified by Organization Details LastModified Time ofloxacin 0.3 % eye drops INSTILL 1 DROP INTO LEFT EYE 4 TIMES PER DAY 07/23/ 2019 09/20 /2019 completed Not Available Not Available Not Available [...] Tobacco Smoking Status Never Smoker Eugenie Oh [facility] 03/23/2018 14:50:59 What Was The Date Of Your Most Recent Tobacco Screening? 10/03/2018 Information n ot available 05/22/2019 Sex: Unknown Functional Status None recorded. Mental Status None recorded. Family History Relationship Description Onset Age of this Age Resolved Age Notes LastModified by Organization Details LastModified Time Mother Glaucoma [email or web address] Not availabl e 03/23/2018 14:50:36 Mother Diabetes mellitus [email or web address] Not available 2017 14:50:43 Mother Hypertensive disorder [email or web address] Not available 2017 14:50:49 Medical History Condition Response Cataract Y Glasses/Contacts Y Gynecological HistoryNo gynecological history recorded. Obstetrics History GPAL:G 0 P 0 0 0 0 Past Encounters Encounter ID Performer Location Encounter Start Date Encounter Closed Date Diagnosis/Indication Diagnosis SNOMED-CT Code Diagnosis ICD10 Code Diagnosis IMO Codes Diagnosis Note [id number] HERMINIA DEJESUS MD OPHTHALMO BENNIE [address] [place] [address] 03/23/2018 14:32:34 03/31/2018 14:35:38 Combined form of senile cataract 39230502 H25.819 ou Myopic astigmatism 91501 4005 H52.209 ou Presbyopia 23827794 H52. 4 [id number] MD ROSMERY XIAO [address] [place] [address] 5 09/14/2018 08:20:57 09/14/2018 11:19:01 Combined form of senile cataract 19710729 H25.819 L>R Myopic astigmatism 77375 4005 H52.209 ou [id number] MD ROSMERY SLOAN [address] [place] [address] 5 10/03/2018 14:32:23 10/04/2018 15:28:06 Combined form of senile cataract 41727718 H25.812 Age-relate d nuclear cataract of right eye 6828775047 52158 H25.11 Posterior vitreous detachment 303807888 H43.813 Myopia 72450759 H52.13 Regular astigmatism 6890 5002 H52.223 Presbyopia 66124914 H52. 4 [id number] BOBBY SERRANO MD SURGERY SCHEDULE [address] [place] [address] 10/30/2018 06:16:45 10/30/2018 06:17:04 [id number] MD ROSMERY SLOAN [address] [place],[address] [place] [phone] 10/31/2018 07:52:35 11/01/2018 13:14:07 Pseudophakia 57464213 Z96.1 pod#1 os-stable [id number] MD ROSMERY SLOAN [address] [place],[address] [place] [address] 5 11/10/2018 15:42:59 11/14/2018 16:25:33 Pseudophakia 66723214 Z96.1 po 1 wkos-stabl e [id number] BOBBY SERRANO MD OPHTHALMO BENNIE [address] [place],[address] [place] [address] 12/22/2018 08:34:16 12/22/2018 11:39:58 Pseudophakia 71539823 Z96.1 po 1 month os-stable Age-relate d nuclear cataract of right eye 1556011570 23809 H25.11 Myopia 77722969 H52.13 Regular astigmatism 6890 5002 H52.223 Presbyopia 90172100 H52. 4 [id number] BOBBY SERRANO MD OPHTHALMO BENNIE [address] [place] [address] 01/10/2023 07:44:25 01/10/2023 10:08:36 Age-related nuclear cataract of right eye 4960628612 18041 H25.11 progressio n-mature cataract Secondary cataract 38672 4007 H26.492 Posterior vitreous detachment 046356468 H43.813 Myopia 34877117 H52.13 Regular astigmatism 6890 5002 H52.223 Presbyopia 67966919 H52. 4 [id number] BOBBY SERRANO MD SURGERY SCHEDULE [address] [place] [address] 03/23/2023 06:25:05 03/31/2023 13:16:49 Age-related nuclear cataract of right eye 8342504502 57763 H25.11 progressio n-mature cataract [id number] BOBBY SERRANO MD OPHTHALMO BENNIE [address] [place] [id number] 03/24/2023 09:27:00 03/24/2023 10:41:47 [id number] BOBBY SERRANO MD OPHTHALMCarrie AVERY [address] [place],[address] [place] [id number] 2023 07:50:03 2023 09:00:23 Postoperative visit 915447514 Z09 stable po exam [id number] BOBBY SERRANO MD OPHTHALMO LOGY [address] [place] [address] 04/25/2023 08:41:34 04/25/2023 10:12:08 Postoperative visit 963278501 Z09 stable po exam Secondary cataract 89395 4007 H26.492 Posterior vitreous detachment 935352429 H43.813 Myopia 28502123 H52.13 Regular astigmatism 6890 5002 H52.223 Presbyopia 35552400 H52. 4 [id number] BOBBY SERRANO MD OPHTHALMO LOGY [address] [place] [address] 10/27/2023 09:10:26 10/27/2023 10:22:34 Secondary cataract 162378814 H26.493 Posterior vitreous detachment 333581137 H43.813 Myopia 13331384 H52.13 Regular astigmatism 6890 5002 H52.223 Presbyopia 47508660 H52. 4 [id number] ARBEN TAVERA MD [address] [address] 12/09/2023 08:04:47 12/14/2023 17:19:15 Seborrheic keratosis 533876819 L82.1 - Benign appearing, reassuranc e given Inflamed s eborrheic keratosis 369858381 L82.0 R20.8 - Will TX with LN2 [...] [employer] (MEDICARE SUPPLEMENT) [employer] [id number] [employer] 12/06/2023 1 [place] [employer] [id number] [employer] 10/27/2023 2 [place]IC[place] [id number] [employer] [id number] [employer] Notes Date Note Type Note Provider Name and Address Organization Details Recorded Time 10/27/2023 text/html ROS as noted in the HPI BOBBY SERRANO MD [address] [place] [address], [phone], [facility] 10/27/2023 10:19:34 12/09/2023 text/html ROS as noted in the HPI Last visit 12/2017 Pt is here for spot checkLocation: Forehead, dry skin on back (now gone)Report: picks at spot on forehead due to bothersome/irri tated nature ARBEN TAVERA MD [address] [place] [address], [phone], [facility] 12/13/2023 07:33:41 OBGyn Episode No OBEpisode recorded.
--- OUTSIDE RECORDS SUMMARY | 2025-02-18 20:03 | XMS_ITS ---
Care Plan - [facility], [facility] Created on: February 18, 2025 Davey Trinh : 1945 Sex: Female Author Organization [facility], [facility] Address [address] [place] [address] Phone Care Team Providers Care Grounds/Maintenance Specialist Name Role Phone Klaudia MONTIEL, Ministerio Petersen Unavailable [phone] LIBERTAD MONTIEL, VANDANA Jonas Primary Care Provider [phone]
--- OUTSIDE RECORDS SUMMARY | 2025-02-18 20:03 | XMS_ITS | Clinical Summary ---
Author Organization [facility] , [facility] Address [address] [place] [address] Phone Care Team Providers Care Hospice Administrator Name Role Phone Klaudia MONTIEL, Ministerio Petersen Unavailable + [phone] LIBERTAD MONTIEL, VANDANA Jonas Primary Care Provider [phone] Reason for Visit and Chief Complaint MRI Problems Includes: Problems addressed during this encounter and other active Problems All Visits Onset Date Resolved Date Provider Condition S tatus Joint Pain Shoulder Left 03/30/2024 Roberta Keyes PA-C Active Last Documented On 4 8:59AM ; [facility] Joint Pain Hip Right 05/20/2022 Kristopher Falcon on PA-C Active Last Documented On 3 10:50AM ; [facility], [facility] Joint Pain Left Knee 09/08/2016 Ministerio Rudolph MD Active Last Documented On 7 1:16PM ; [facility] Joint Pain Hip Left 09/08/2016 Ministerio keenan MD Active Last Documented On 7 1:16PM ; [facility], [facility] Plan of Treatment No Plan of Treatment [...] On 4 9:07AM By Domonique Garcia ; [facility] Medications Administered Includes: Administered Medications from this encounter No Administered Medications Recorded Results Includes: Results discussed during this encounter No Results Recorded For Specified Dates History of Present Illness Includes: History of Present Illness from this encounter No History of Present Illness Recorded Social History No Social History Recorded - Smoking Status Unknown Procedures and Surgical History Includes: Procedures from this encounter Procedures Code Diagnosis Performing Provider Service Location Service Date MRI JOINT UPR EXTREM W/O DYE (LEFT) 79401 Pain in left shoulder Supa Knapp MD [facility] 04/12/2024 Last Documented On 5 3:48PM ; [facility] Medical History Includes: Medical History addressed [...] Active Last Documented On 4 9:07AM ; [facility] Encounters Encounter Provider Location Date Check-In Time Check-Out Time Diagnosis MRI [facility] 04/12/2024 8:12AM 8:29AM Insurance Includes: Active Insurance Policies Plan Name Member ID Group # Subscriber Relationship Effect shabnam Dates 1 - Medicare Part B [facility] [id number] [employer] Self 03/04/2011 - Unknown 2 - [employer] [id number] [employer] Self 07/26/2019 - Unknown Clinical Notes Includes: Clinical Notes from this encounter No Clinical Notes Recorded
--- OUTSIDE RECORDS SUMMARY | 2025-02-18 20:04 | XMS_ITS ---
Author Organization [facility] Address [address] [place] [address] Phone Care Team Providers Care Director Of Digital Technology Name Role Phone Klaudia MONTIEL, Ministerio Petersen Unavailable [phone] LIBERTAD MONTIEL, VANDANA E Primary Care Provider [phone] Reason for Referral Date Encounter Description Provider Reason for Referral 04/10/20 Follow Up Ministerio keenan MD Referral To Physician - see pcp for bp Problems Includes: Active, inactive, and resolved Problems All Visits Onset Date Resolved Date Provider Condition S tatus Joint Pain Shoulder Left 03/30/2024 Roberta CUI-C Active Last Documented On 4 8:59AM ; [facility] Joint Pain Hip Right 05/20/2022 Kristopher Falcon on PA-C Active Last Documented On 3 10:50AM ; [facility] Joint Pain Left Knee 09/08/2016 Ministerio Rudolph MD Active Last Documented On 7 1:16PM ; [facility] Joint Pain Hip Left 09/08/2016 Ministerio keenan MD Active Last Documented On 7 1:16PM ; [facility] Plan of Treatment Findings Encounter Date Patient screened for future fall risk: documentation of any fall with injury in past year Next Available Non-Specified Physician with Roberta Keyes PA-C 03/30/2024 Last Documented On 4 9:29AM ; [facility] Pending Tests Order Diagnosis Results Due Ordering P rovider Radiology - MRI MRI Shoulder Pain in left shoulder 5 Roberta Keyes PA-C Last Documented On 4 9:29AM ; [facility] Instructions to patient Lose weight Last Documented On 3 1:12PM ; [facility] Lose weight Last Documented On 3 8:04AM ; [facility] Lose weight Last Documented On 3 11:08AM ; [facility] Instructions for patient See PCP for BP and weight Last Documented On 7 9:59AM ; [facility] Lose weight Last Documented On 7 9:59AM ; [facility] Instructions for patient See PCP for BP and weight Last Documented On 7 8:53AM ; [facility] Lose weight Last Documented On 7 8:53AM ; [facility] Instructions for patient See PCP for BP and weight Last Documented On 7 11:50AM ; [facility] Lose weight Last Documented On 7 11:50AM ; [facility] Assessments Includes: Assessments for all patient encounters Findings Encounter Date Overweight Follow Up with Amado Harris 11/03/2022 Last Documented On 3 1:46PM ; [facility] Instructions Includes: Instructions for all patient encounters Instructions to patient Lose weight Last Documented On 3 1:12PM ; [facility] Lose weight Last Documented On 3 8:04AM ; [facility] Lose weight Last Documented On 3 11:08AM ; [facility] Instructions for patient See PCP for BP and weight Last Documented On 7 9:59AM ; [facility] Lose weight Last Documented On 7 9:59AM ; [facility] Instructions for patient See PCP for BP and weight Last Documented On 7 8:53AM ; [facility] Lose weight Last Documented On 7 8:53AM ; [facility] Instructions for patient See PCP for BP and weight Last Documented On 7 11:50AM ; [facility] Lose weight Last Documented On 7 11:50AM ; [facility] Medical Equipment - Implanted Devices Includes: Current and historical Devices No Medical Equipment Recorded Medications Includes: Current and historical Medications Current Medications (continue as prescribed) Losartan Potassium 50 MG Oral Tablet 03/05/2024 Prov ider: VANDANA MAURER MD Diagnosis: Last Documented On 4 9:07AM By Domonique Garcia ; [facility] Past Medications on file traMADol HCl 50 MG Oral Tablet 03/30/2024 - 04/06/2024 Provider: Supa Knapp MD Diagnosis: Pain in left margie ulder take one tablet by mouth thr ee times per day NEEDED Last Documented On 4 9:21AM By Supa Knapp ; [facility] Meloxicam 15 MG Oral Tablet 11/03/2022 - 02/01/2023 Pr ovider: Amado Matos PA-C Diagnosis: once a day Last Documented On 3 1:47PM By Amado Matos ; [facility] Adult Aspirin Regimen 81 MG Oral Tablet Delayed Release 05/20/2022 - 03/30/2024 Provider: Diagnosis: Last Documented On 4 9:07AM By Domonique Garcia ; [facility] Diclofenac Sodium 75 MG Oral Tablet Delayed Release 05/11/2022 - 03/30/2024 Provider: VANDANA Marks MD Diagnosis: Last Documented On 4 9:07AM By Domonique Garcia ; [facility] Losartan Potassium 50 MG Ora l Tablet 02/24/2022 - 03/30/2024 Provider: VANDANA Yip Diagnosis: Last Documented On 4 9:07AM By Domonique Garcia ; [facility] Pravastatin Sodium 80 MG Ora l Tablet 12/12/2021 - 03/30/2024 Provider: VANDANA Yip Diagnosis: Last Documented On 4 9:07AM By Domonique Garcia ; [facility] Diclofenac Sodium 75 MG Oral Tablet Delayed Release 04/10/2020 - 07/09/2020 Provider: Ministerio keenan MD Diagnosis: twice a day Last Documented On 1 10:48AM By Pari Farr ; [facility] Diclofenac Sodium 75 MG Oral Tablet Delayed Release 10/04/2019 - 12/03/2019 Provider: Ministerio keenan MD Diagnosis: twice a day Last Documented On 0 12:41PM By Lucero Torres ; [facility] Adult Aspirin Regimen 81 MG Oral Tablet Delayed Release 07/26/2019 - 05/20/2022 Provider: Diagnosis: Last Documented On 3 11:05AM By Lianne Fleming ; [facility] Ibuprofen 200 MG Oral Capsule 07/26/2019 - 023 Provider: Diagnosis: Last Documented On 3 11:05AM By Lianne Fleming ; [facility] Losartan Potassium-HCTZ 50-12.5 MG Oral Tablet 0 07/26/2019 - 05/20/2022 Provider: Diagnosis: Last Documented On 3 11:05AM By Lianne Fleming ; [facility] Pravastatin Sodium 40 MG Oral Tablet 07/26/2019 - 05/05 Provider: Diagnosis: Last Documented On 3 11:05AM By Lianne Fleming ; [facility] Mobic 15 MG Oral Tablet 07/26/2019 - 09/24/2019 Provid er: Ministerio Rudolph MD Diagnosis: once a day Last Documented On 0 10:36AM By Amado Matos ; [facility] Keflex 500MG Oral Capsule 12/22/2016 - 12/23/2016 Prov ider: Ministerio Rudolph MD Diagnosis: take as directed; TAKE 4 TAB LETS ONE HOUR PRIOR TO PROCEDURE Last Documented On 7 4:04PM By Jia Hill ; [facility] Neurontin 300MG Oral Capsule 12/21/2016 - 04/20/2017 Provider: Ministerio keenan MD Diagnosis: 1 every bedtime Last Documented On 7 9:43AM By Paty Colon ; [facility] TraMADol HCl 50MG Oral Tablet 12/21/2016 - 12/29/2016 Provider: Ministerio keenan MD Diagnosis: 1 tab every 6 hrs prn pain Last Documented On 7 9:43AM By Paty Colon ; [facility] TraMADol HCl 50 MG Tablet 11/22/2016 - 12/05/2016 Provider: Ministerio keenan MD Diagnosis: 2 tablets every 6 hours FOR SURGERY Last Documented On 7 10:18AM By Paty Colon ; [facility] OxyCODONE HCl 5 MG Tablet 11/22/2016 - 12/02/2016 Prov ider: Ministerio Rudolph MD Diagnosis: 1-2 po q 4-6h FOR SURGERY Last Documented On 7 10:18AM By Paty Colon ; [facility] Neurontin 300 MG Capsule 11/22/2016 - 02/20/2017 Provi craig: Ministerio Rudolph MD Diagnosis: 1 every bedtime FOR SURGERY Last Documented On 7 10:17AM By Paty Colon ; [facility] Colace 100 MG Capsule 11/22/2016 - 02/20/2017 Provider : Ministerio Rudolph MD Diagnosis: 1-2 tabs daily FOR SURGERY DO NOT FILL TILL 11/29/16 Last Documented On 7 10:19AM By Paty Colon ; [facility] Acetaminophen 500 MG Tablet 11/22/2016 - 11/30/2016 Pr ovider: Ministerio Rudolph MD Diagnosis: 2 three times a day FOR SURG KATIEDO NOT FILL TILL 11/29/16 Last Documented On 7 10:19AM By Paty Colon ; [facility] Medications Administered Includes: Administered Medications in patient's chart No Administered Medications Recorded Vital Signs Includes: Vital Signs from 02/19/2024 through 02/18/2025 Vital Name 03/30/2024 09:09A Height (in) 72 Weight (lb) 212 Body Mass Index 28.8 Body Surface Area 2.2 Note: ab Last Documented: On 03/30/2024 9:09AM ; [facility], [facility] Results Includes: Results from 02/19/2024 through 02/18/2025 No Results Recorded For Specified Dates History of Present Illness History of Present Illness not supported for this document type No History of Present Illness Recorded Social History Description Last Updated Caffeine use 03/30/2024 Last Documented On 4 9:29AM ; [facility] Not exercising regularly 03/30/2024 Last Documented On 4 9:29AM ; [facility] Not using alcohol 11/03/2022 Last Documented On 3 1:46PM ; [facility] Not using drugs 11/03/2022 Last Documented On 3 1:46PM ; [facility] Tobacco non-user 05/20/2022 Last Documented On 4 10:04AM ; [facility] No recent change in diet 05/20/2022 Last Documented On 4 10:04AM ; [facility] Not a current smoker. 05/20/2022 Last Documented On 4 10:04AM ; [facility] Non-smoker 04/10/2020 Last Documented On 1 3:04PM ; [facility] No recent change in diet 09/17/2016 Last Documented On 7 8:30AM ; [facility] Not a current smoker 09/17/2016 Last Documented On 7 8:30AM ; [facility] No tobacco use 09/17/2016 Last Documented On 7 8:30AM ; [facility] Smoking status : Never smoker 09/17/2016 Last Documented On 7 8:30AM ; [facility] Procedures and Surgical History Includes: Procedures from 02/19/2024 through 02/18/2025 Procedures Code Diagnosis Performing Provider Service Location Service Date MRI JOINT UPR EXTREM W/O DYE (LEFT) 70928 Pain in left shoulder Supa Knapp MD [facility] [place] 04/12/2024 Last Documented On 5 3:48PM ; [facility] Surgical History Last Updated History of total hip replacement 023 Last Documented On 4 10:04AM ; [facility] History of appendectomy 09/17/2016 Last Documented On 7 8:30AM ; [facility] Medical History Includes: Medical History in patient's chart Description Last Updated History of arthritis 05/20/2022 Last Documented On 4 10:04AM ; [facility] History of Hypertension 05/20/2022 Last Documented On 4 10:04AM ; [facility] Intermittent hypertension 07/26/2019 Last Documented On 0 9:41AM ; [facility] HIGH CHOLESTEROL 09/17/2016 Last Documented On 7 8:30AM ; [facility] Arthritic joint problems 09/17/2016 Last Documented On 7 8:30AM ; [facility] Family History Includes: Family History in patient's chart Description Last Updated Diabetes mellitus 05/20/2022 Last Documented On 4 10:04AM ; [facility] Family history of cancer 07/26/2019 Last Documented On 0 9:41AM ; [facility] Family history of diabetes mellitus 07/04 Last Documented On 0 9:41AM ; [facility] Fraternal history of family history of c ancer BROTHER 09/17/2016 Last Documented On 7 8:30AM ; [facility] Maternal history of diabetes mellitus [place] THER, SISTER 09/17/2016 Last Documented On 7 8:30AM ; [facility] Maternal history of rheumatoid arthritis MOTHER, SISTER 09/17/2016 Last Documented On 7 8:30AM ; [facility] Review of Systems Review of Systems not supported for this document type No Review of Systems Recorded Mental Status No Mental Status Recorded Functional Status No Functional Status Recorded Physical Exam Physical Exam not supported for this document type No Physical Exam Recorded Allergies Includes: Active, inactive, and resolved Allergies Substance Type Reaction Onset Date Resolved Date Statu s Sudafed Allergy 07/26/2019 Active Last Documented On 4 9:07AM ; [facility] Encounters Includes: Encounters from 02/19/2024 through 02/18/2025 Encounter Provider Location Date Check-In Time Check-Out Time Diagnosis MRI [facility] 04/12/19 25 8:12AM 8:29AM Next Available Non-Specified Physician Roberta Keyes PA-C [facility] 03/30/20 24 8:42AM 9:06AM Insurance Includes: Active Insurance Policies Plan Name Member ID Group # Subscriber Relationship Effect shabnam Dates 1 - Medicare Part B [facility] [id number] Davey Trinh Self 03/04/2011 - Unknown 2 - [employer] [id number] Davey Trinh Self 07/26/2019 - Unknown Clinical Notes Includes: Signed Clinical Notes starting from 03/18/2022 * Progress note Date Encounter Last Documented by 03/30/2024 Next Available Non-S pecified Physician Last documented on 03/30/2024; 9:29 AM, Roberta Keyes PA-C; [facility] Active Problems & Conditions - Joint [...] Care Team - VANDANA MAURER MD - [employer] D[employer]PER
== END 2025-02-18 23:59 | disposition home or self-care (01) ==
LOC: RAD 13:28
PROVIDERS: PCP Family Medicine; Visit Provider Physician Assistant
DX: N63.11 Unspecified lump in the right breast, upper outer quadrant (principal)
CPT/HCPCS: 77061; 77065; G0279

== ENCOUNTER 2025-03-08 07:43 | Outpatient (CLI) | payer MEDICARE, OTHER, SELFPAY ==
--- OUTSIDE RECORDS SUMMARY | 2024-11-07 04:45 | XMS_ITS ---
Author Organization [facility] Address [address] [facility] [address] [place] [id number] Care Team Providers Care Contract Specialist Name Role Phone Eleni Smith Unavailable [phone] Allergies Allergen (clinical drug ingredient) Drug/Non Drug [...] Interpretation:Normal Performing Lab: Notes/Report: Test performed by [employer] [address] [place], [place] [address] [facility] [employer] [address], [address], [place] [address] Miles Jenkins MD, Skip Locator CLIA: [id number] Vitamin B12 057 595-8091 pg/mL P-Comprehensive Metabolic Pa raheel (CMP) Reviewed date:11/13/2024 09:04:30 AM Interpretation:Normal Performing Lab: Notes/Report: Test performed by [employer] [address] [place], [place] [address] [employer] [address], [address], [place] [address] Miles Jenkins MD, Skip Locator CLIA: [id number] Sodium 139 135-145 mmol/L Potassium 4.6 3.5-5.3 [...] 136 Performing Lab: Notes/Report: Test performed by [employer] [employer] [address] [place] [address] , [address], [place] [address] Miles Jenkins MD, Skip Locator CLIA: [id number] Cholesterol 176 <200 mg/dL Triglycerides 194 <150 [...] Word finding difficu lty (R47.89) [facility] Referring Provider First Name Eleni Referring Provider Last Name Sarah Referring Provider Speciality Physician Payroll Specialist Referred Provider Specialty Neurology General Notes Eleni Smith 09/2024 01:21:51 PM > Needs appt with Ade Yanez Brynn 11/07/2024 01:54:56 PM > faxed to [facility] NeurologyAde Brynn 11/09/2024 10:51:08 AM > spoke with Elvira; referral received Referral Priority Routine Diagnosis 1 Non-recurrent acute serous otitis media of both ears (H65.03) [facility] Referring Provider First Name Eleni Referring Provider Last Name Sarah Referring Provider Speciality Physician Payroll Specialist Referred Provider Specialty ENT General Notes Eleni Smith 09/2024 01:22:25 PM >[facility] 11/07/2024 01:55:56 PM > [facility] ENTAde Brynn 11/09/2024 11:31:36 AM > spoke [...] W/U Status Risk Notes Problem Essential hypertension (10259673) Essential hypertension (I10) Active confirmed Problem Mixed hyperlipidemia (334145321) Mixed hyperlipidemia (E78.2) Active confirmed Problem Body mass index 40+ - morbidly obese (054292499) BMI 40.0-44.9, adult (Z68.41) Active confirmed Problem Morbid obesity (028063543) Obesity, morbid, BMI 40.0-49.9 (E66.01) Active confirmed Vital Signs Weight 215.4 lbs 11/07/2024 Blood pressure systolic 132 mm Hg 11/08/19 25 Blood pressure diastolic 72 mm Hg 025 Heart Rate 60 /min 11/07/2024 Height 60 in 11/07/2024 BMI 42.06 kg/m2 11/07/2024 Encounters Encounter Location Date Provider Diagnosis [facility] [address] [facility] [address] [place], [place] [id number] 11/07/2024 Eleni Sarah Dizziness R42 ; Essential [...] * Davey TRINHDOB: 6 (79 yo F)Acc No.[id number]:11/07/2024 Progress Notes Patient: Chau Davey YBARRA Provider: SEE Riggs :1945 A ge:79 Y S ex:Female Date:11/07/2024 Address:[address] [place] [address] Rd, [id number] Subjective: * Chief Complaints: * 1 . Consult, BW, f/u with Angie Breen. * HPI: H PI: Patient is here today for B Philly Runway Thief work and to get established with us. [...] ixed hyperlipidemia - E78.2 7 . B PA 40.0-44.9, adult - Z68.41 8 . O besity, morbid, BMI 40.0-49.9 - E66.01 Plan: * Treatment: Value Reference Range V itamin B12 795 659-8554 - pg/mL * Eleni Smith 11/07/2024 10 [...] EDT > no auth required; CPT code 28319; faxed to [facility] Yanet Gibbs 11/20/2024 09:48:13 AM EDT > [...] G 2211 Complex e/[place], [address] CBC WITH AUTO DIFF, 32117 VENIPUNCT, ROUTINE*, 1036F TOBACCO NON-USER, G8950 PREHTN/HTN BP DOC INDCD F/U DOC, G8752 MOST RECENT SYSTOLIC BP < 140MM HG, G8754 MOST RECENT DIASTOLIC BP < 90MM HG * Follow Up: v ia phone to report test results * Images: Drawing:[facility] 2024 Billing Information: * Visit Code: 50046 Office Visit, New Pt., Level 3. * Procedure Codes: G2211 Complex e/[place]. [address] CBC WITH AUTO DIFF. 86313 VENIPUNCT, ROUTINE*. 1036F TOBACCO NON-USER. G8950 PREHTN/HTN BP DOC INDCD F/U DOC. G8752 MOST RECENT SYSTOLIC BP < 140MM HG. G8754 MOST RECENT DIASTOLIC BP < 90MM HG. * Electronic signature of SEE Raphael on 03/08/2025 at 07:47 AM EST Sign off status: Pending * Provider: SEE Riggs Date: 0 11/07/2024 Generated for Troy jorge/Fasundarg/eTransmitting on: 1 05/09/2024 07:47 AM EST History and Physical Notes * [...]
--- OUTSIDE RECORDS SUMMARY | 2025-03-04 06:00 | XMS_ITS ---
[facility] Address [address] [place] [id number] Care Team Providers Care Trimmer Tailer Name Role Phone Lela Hurtado Unavailable [phone] Allergies Allergen (clinical drug ingredient) Drug/Non Drug Allergy documented on EMR Reaction Allergy Type Onset Date Status Sudafed Unknown Drug Allergy Active tramadol traMADol Unknown Drug Allergy Active Results Component Value Reference Range Notes Urinalysis - Inhouse Reviewed date:03/04/2025 12:33:05 PM Interpretation: Performing Lab: Notes/Report: Color/Clarity yellow Leuk 1+ Nitrite neg Urobili 3.2 Protein neg pH 5.5 Blood trace Sp. Gr. 1.025 Ketone neg Bili neg Gluc neg P-Culture, Urine Reviewed date:03/07/2025 01:17:06 PM Interpretation:E coli Performing Lab: Notes/Report: Test performed by [facility] [address] [place] [address] , [address], [place] [address] Fauzia Muir MD, PhD, FCAP, Wealth Management Advisor CLIA: [id number] Specimen Source Urine - Void Culture, Urine See Below See Microbiol ogy Report Escherichia coli >100,000 CFU/ml Escherichia coli Sensitivity Panel See Below ____ Organism E. coli Antibiotic INTERP ____ Amikacin S Ampicillin S Aztreonam S Cefepime S Cefoxitin S Ceftazidime S Ceftriaxone S Cefuroxime S Ciprofloxacin S Ertapenem S Gentamicin S Imipenem S Levofloxacin S Meropenem S Nitrofurantoin S Piperacillin/Tazo S Tetracycline S Tobramycin S Trimeth/Sulfa S ___ S=SUSCEPTIBLE I=INTERMEDIATE R=RESISTANT REASON FOR VISIT poss kidney infection Medications Medication SIG (Take, Route, Frequency, Duration) Notes Start Date End Date Status Diclofenac Sodium 75 MG 1 tablet as need ed Orally Twice a day; Duration: 90 days Active Losartan Potassium 50 MG 1 tablet Orally Once a day; Duration: 90 days Active Flonase Allergy Relief 50 MCG/ACT 1 spray in each nostril Nasally Once a day; Duration: 90 days Active Pravastatin Sodium 80 MG 1 tablet Orally Once a day; Duration: 90 days Active Nitrofurantoin Monohyd Macro 100 MG 1 capsule with food Orally every 12 hrs; Duration: 5 days 03/04/2025 Active Aspirin 81 MG 1 tablet Orally Once a day Active Vital Signs Weight 217 lbs 03/04/2025 Blood pressure systolic 134 mm Hg 03/04/20 25 Blood pressure diastolic 70 mm Hg 025 Heart Rate 61 /min 03/04/2025 Height 60 in 03/04/2025 BMI 42.38 kg/m2 03/04/2025 Encounters Encounter Location Date Provider Diagnosis [facility] [address] [place] [id number] 03/04/2025 Lela Hurtado Acute lower urinary tract infection N39.0 Assessments Encounter Date Diagnosis (ICD Code) Assessment Notes Treatment Notes Treatment Clinical Notes Section Notes 03/04/2025 Acute lower urinary tract infection (ICD-10 - N39.0) continue with good water intake Plan Of Treatment Medication Medication Name Sig Start Date Stop Date Notes Nitrofurantoin Monohyd Macro 100 MG 1 capsule with food Orally every 12 hrs; Duration: 5 days 03/04/2025 Treatment Notes Assessment Notes Acute lower urinary tract infection cont inue with good water intake Next Appt Details Follow Up: prn, Reason: Progress Notes * AISHA DaveyDOB: 6 (79 yo F)Acc No.[id number]:03/04/2025 Progress Notes Patient: Davey HILTON Provider: RUTH Lan :1945 A ge:79 Y S ex:Female Date:03/04/2025 Address:[address] [place] [address] Rd, [place], [id number] Subjective: * Chief Complaints: * 1 . Poss kidney infection. * HPI: U rology: Pt states these symptoms started a month ago. 79 year old female presents with c/o urgency. c/o flank pain r ight-sided. c/o nighttime voidin time per night. c/o Urine Odor. Denies : frequent urination. D enies : burning sensation.?Denies : suprapubic pain. D enies : hematuria. D enies : fever. D enies : Vaginal Itching. * ROS: D ERMATOLOGY: no R ortega. [...] tablet Orally Once a day , Taking Flonase Allergy Relief 50 MCG/ACT Suspension 1 spray in each nostril Nasally Once a day , Taking Pravastatin Sodium [...] udafed, traMADol. Objective: * Vitals: W t: 217, Temp: 97.6, BP: 134/70, HR: 61, Nurse: pe, Ht: 60, BMI:42.38. * Examination: G eneral Examination: General Appearance: N AD, appears healthy, alert, well nourished and hydrated. H eart: R RR. L ungs: C TAB A&P. A bdomen: b owel sounds present, soft and nontender, no organomegaly or masses, no CVA tenderness. N eurologic Exam: a lert and oriented. Assessment: * Assessment: 1. A cute lower urinary tract infection - N39.0 (Primary) Plan: * Treatment: Value Reference Range C ulture, Urine See Below - * S pecimen Source Urine - Void - * S ensitivity Panel See Below - * E scherichia coli >100,000 CFU/ml Escherichia coli - * Lela Hurtado 03/07/2025 01:16:45 PM EST >on macrobid to which it is sensitive ?LAB: Urinalysis - Inhouse (Collection Date & Time - 03/04/2025)* Value Reference Range C olor/Clarity yellow * L euk 1+ * N itrite neg * U robili 3.2 * P rotein neg * p H 5.5 * B lood trace * S p. Gr. 1.025 * K etone neg * B myriam neg * G tevin neg * Samantha Loyd 03/04/2025 1 1:19:40 AM EST > Provider reviewed results while patient in office.Lela Hurtado 03/04/2025 12:33:03 PM EST > Notes: continue with good water intake?? * Procedure Codes: 8 1002 Urinalysis, no micro * Follow Up: p rn * Images: Billing Information: * Visit Code: 00476 Office Visit, Est Pt., Level 3. * Procedure Codes: 57547 Urinalysis, no micro. * Electronic signature of Fatou Hurtado APRN on 03/08/2025 at 07:46 AM EST Sign off status: Pending * Provider: RUTH Lan Date: 05/05/2024 Generated for Meei ania/Ramon/eTransmitting on: 05/09/2024 07:46 AM EST History and Physical Notes * HPI (History of Present Illness) Category Sub-Category Detail Notes Category Not es Urology frequent urination burning sensation flank pain right-sided suprapubic pain hematuria fever nighttime voidin time per night urgency Urine Odor Vaginal Itching Examination Category Sub-Category Detail Notes Category Not es General Examination Heart: RRR Lungs: CTAB A&P Abdomen: bowel sounds present , soft and nontender, no organomegaly or masses, no CVA tenderness General Appearance: NAD, appears healthy , alert, well nourished and hydrated Neurologic Exam: alert and oriented
--- NOTE | 2025-03-08 07:46 | US_ITS ---
FINAL REPORT TECHNIQUE: Sonographic images of the right upper quadrant were obtained. CLINICAL HISTORY: ABNORMAL CT SCAN per office COMPARISON: CT of the abdomen and pelvis dated 11/19/2024 FINDINGS: PANCREAS: Unremarkable. LIVER: There is fatty infiltration of the liver. No focal hepatic lesion. No intrahepatic biliary ductal dilatation. The portal vein is patent with normal directional flow. GALLBLADDER: No gallstones. No gallbladder wall thickening or pericholecystic fluid. COMMON DUCT: 6 mm. Normal for age. RIGHT KIDNEY: The right kidney measures 11.6 cm. There is no hydronephrosis, mass, or stone. FREE FLUID: None. IMPRESSION: The mass identified on CT examination of 11/19/2024 is not visualized in the liver on the current exam. If further follow-up is necessary, liver protocol MRI is recommended for further evaluation. Fatty infiltration of the liver. Reviewed, Interpreted and Dictated by Carrie Andrade MD Transcribed by Ashlee Collins Authenticated and [facility]
--- OUTSIDE RECORDS SUMMARY | 2025-03-08 07:46 | XMS_ITS | Clinical Summary ---
Author Organization [facility] Address [address] [place] [address] Phone Care Team Providers Care Breaker Boss Name Role Phone Unavailable Unavailable Conditions or Problems No information available. Medications No information available. Medications Administered No information available. Allergies, Adverse Reactions, Alerts No information available. Results No information available. Plan of Care No information available. Procedures No information available. Vital Signs No information available. Immunizations No information available. Advance Directives No information available.
--- NOTE | 2025-03-08 07:47 | US_ITS ---
PROCEDURE INFORMATION: Exam: US Right Breast, Complete Exam date and time: 03/08/2025 8:13 AM Age: 79 years old Clinical indication: Patient recalled for further evaluation of a suspicious palpable right breast mass TECHNIQUE: Imaging protocol: Complete ultrasound of all four quadrants of the right breast and the retroareolar regions, including ultrasound of the axilla when performed. COMPARISON: MG MM DIG MAMM DX UNILAT RT CAD 02/18/2025 1:45 PM FINDINGS: ULTRASOUND: Breast ultrasound findings: Sonographic images of the right 10 o'clock axis 5 cm from the nipple where the patient reports a palpable abnormality and corresponding to the stellate mass on mammography, is an irregularly marginated hypoechoic solid mass measuring 2.3 x 2.2 x 1.9 cm in dimension. There is associated architectural distortion present. No other solid or cystic masses in the remainder of the right breast. No axillary adenopathy. IMPRESSION: Palpable mass in the right upper outer quadrant is highly suggestive of primary breast carcinoma. Ultrasound-guided core biopsy is recommended for further evaluation. ASSESSMENT: BI-RADS Category 5: Highly suggestive of malignancy.
--- OUTSIDE RECORDS SUMMARY | 2025-03-08 07:47 | XMS_ITS | Patient Health Record ---
[facility] Address [address] [place] [id number] Care Team Providers Care Concrete Batching Plant Operator Name Role Phone [place] Jaime Unavailable [phone] Lela Hurtado Unavailable [phone] Eleni Smith Unavailable [phone] Allergies Allergen (clinical drug ingredient) Drug/Non Drug [...] coli Performing Lab: Notes/Report: Test performed by [facility] [employer] [address] [place] [address] , [address], [place] [address] Fauzia Muir MD, PhD, [facility], Director Of Officiating CLIA: [id number] Specimen Source Urine - Void Culture, Urine See Below See Microbiol ogy Report Escherichia coli >100,000 CFU/ml Escherichia coli Sensitivity Panel See Below Organism E. coli Antibiotic INTERP Amikacin S Ampicillin S Aztreonam S Cefepime S Cefoxitin S Ceftazidime S Ceftriaxone S Cefuroxime S Ciprofloxacin S Ertapenem S Gentamicin S Imipenem S Levofloxacin S Meropenem S Nitrofurantoin S Piperacillin/Tazo S Tetracycline S Tobramycin S Trimeth/Sulfa S S=SUSCEPTIBLE I=INTERMEDIATE R=RESISTANT Mammogram : Diagnostic Right Breast Reviewed date:02/21/2025 09:31:41 AM Interpretation: Performing Lab: Notes/Report: P-Lipid Panel Reviewed date:11/13/2024 09:04:30 AM Interpretation:trigs 194, non-hdl 136 Performing Lab: Notes/Report: Test performed by [facility] [address] [place] [address] , [address], [place] [address] Miles Jenkins MD, Director Of Officiating CLIA: [id number] Cholesterol 176 <200 mg/dL Triglycerides 194 <150 [...] 84 >60 ML/MIN EGFR 69 >60 ml/min CBC Venipuncture (in house) Reviewed date:11/07/2024 03:49:53 [...] Interpretation:Normal Performing Lab: Notes/Report: Test performed by [facility] , [address], [place] [address] Miles Jenkins MD, Director Of Officiating CLIA: [id number] Vitamin B12 372 308-7803 pg/mL P-Comprehensive Metabolic Pa raheel (CMP) Reviewed date:11/13/2024 09:04:30 AM Interpretation:Normal Performing Lab: Notes/Report: Test performed by [facility] [address] [place] [address] , [address], [place] [address] Miles Jenkins MD, Director Of Officiating CLIA: [id number] Sodium 139 135-145 mmol/L Potassium 4.6 3.5-5.3 [...] 0.5 <0.2-1.2 mg/dL A/G Ratio 1.5 1.1-2.5 Reason For Referral Diagnosis 1 Dizziness (R42) Diagnosis 2 Word finding difficu lty (R47.89) Referral Organization [facility] Referring Provider First Name Eleni Referring Provider Last Name Sarah Referring Provider Speciality Physician Territory Account Executive Referred Provider Specialty Neurology General Notes Eleni Smith 09/2024 01:21:51 PM > Needs appt with Ade Yanez Brynn 11/07/2024 01:54:56 PM > faxed to [facility] NeurologyAde Brynn 11/09/2024 10:51:08 AM > spoke with Elvira; referral received Referral Priority Routine Diagnosis 1 Non-recurrent acute serous otitis media of both ears (H65.03) [facility] Referring Provider First Name Eleni Referring Provider Last Name Sarah Referring Provider Speciality Physician Territory Account Executive Referred Provider Specialty ENT General Notes Eleni Smith 09/2024 01:22:25 PM >[facility] 11/07/2024 01:55:56 PM > faxed to [facility] ENTAde Brynn 11/09/2024 11:31:36 AM > spoke [...] 1 tablet Orally Once a day Active Nitrofurantoin Monohyd Macro 100 MG 1 capsule with food Orally every 12 hrs; Duration: 5 days 03/04/2025 Active Problems Problem Type SNOMED Code ICD Code Onset Dates Problem Status W/U Status Risk Notes Problem Essential hypertension (39142731) Essential hypertension (I10) Active confirmed Problem Mixed hyperlipidemia (352490365) Mixed hyperlipidemia (E78.2) Active confirmed Problem Body mass index 40+ - morbidly obese (576597229) BMI 40.0-44.9, adult (Z68.41) Active confirmed Problem Morbid obesity (103351430) Obesity, morbid, BMI 40.0-49.9 (E66.01) Active confirmed Problem Mammography abnormal (667307398) Abnormal mammogram of right breast (R92.8) Active confirmed Problem Tomography - chest abnormal (103186550) Abnormal CT scan, chest (R93.89) Active confirmed Vital Signs Heart Rate 61 /min 03/04/2025 Blood pressure diastolic 70 mm Hg 03/04/2025 Height 60 in 03/04/2025 Blood pressure systolic 134 mm Hg 03/04/2025 Weight 217 lbs 03/04/2025 BMI 42.38 kg/m2 03/04/2025 Encounters Encounter Location Date Provider Diagnosis [facility] [address] [facility] [address] [place] [id number] 11/07/2024 Eleni Crowdy Dizziness R42 ; Essential hypertension I10 ; Word finding difficulty R47.89 ; Lung density present on imaging study J98.4 ; Non-recurrent acute serous otitis media of both ears H65.03 ; Mixed hyperlipidemia E78.2 ; BMI 40.0-44.9, adult Z68.41 and Obesity, morbid, BMI 40.0-49.9 E66.01 [facility] [address] [place], [place] [id number] 03/04/2025 Lela Hurtado Acute lower urinary tract infection N39.0 [facility] [address] [place], [place] [id number] 11/12/2024 [place] [facility] [address] [place] [id number] 11/13/2024 Eleni Crowdy [facility] [address] [place] [id number] 11/20/2024 Eleni Crowdy [facility] [address] [place] [id number] 12/04/2024 Eleni Crowdy [facility] [address] [place] [id number] 12/14/2024 [place] [facility] [address] [place] [id number] 12/25/2024 Eleni Crowdy [facility] [address] [place] [id number] 02/21/2025 Eleni Crowdy Assessments Encounter Date Diagnosis (ICD Code) Assessment Notes Treatment Notes Treatment Clinical Notes Section Notes 11/07/2024 Dizziness (ICD-10 - R42) 11/07/2024 Essential hypertension (ICD-10 - I10) 03/04/2025 Acute lower urinary tract infection (ICD-10 - N39.0) continue with good water intake 11/07/2024 Word finding difficulty (ICD-10 - R47.89) [...] Treatment Pending Test Test Name Order Date Ultrasound : Breast, right 02/22/2025 xUltrasound: liver 11/26/2024 Insurance Providers Payer Name Payer Address Payer Phone Subscriber Number Group Number Insured Name Patient Relationship to Insured Coverage Start Date Coverage End Date MEDICARE PART B [address] [address] [place] [address] [id number] Davey Trinh Self - patient is the insured [employer] [place] [address] [place] [address] [id number] Davey Trinh Self - patient is the insured Medical (General) History Medical History History ICD Code Sinus High Cholesterol hypertension Surgical History Surgery Date(Month/Year) tubal ligation 1972 appendectomy 1994 left hip replacement 2016
--- OUTSIDE RECORDS SUMMARY | 2025-03-08 07:47 | XMS_ITS | Data Portability ---
Author Organization [facility] Address [address] [place] [address] Care Team Providers Care Cloth Picker Name Role Phone BOBBY SERRANO Color Checker VANDANA MAURER Primary Care Provider Assessment No [...] By Organization Details Last Modified Time 03/24/2023 [id number] recheck 1 wk dkielar Not available 09:56:47 [...] drops. dkielar Not available 03/24/2023 09:48:30 2023 [id number] tomorrow restrictions are lifted,stop moxifloxacin and begin pred/ketorolac taper per instructions(revie tue with pt/daughter) recheck 1 month refract ou and dilate od dkielar Not available 2023 08:10:38 04/25/2023 [id number] stable po exam M R with +2.75 NL recheck 6 months complete exam [email or web address] Not available 04/25/2023 10:08:54 10/27/2023 [id number] stable exam recheck 1 yr dkielar Not [...] Recorded Time Combined form of senile cataract 49976583 Completed 201812/22/2018 BOBBY SERRANO MD [address] [place] [address], [phone], [facility] 9 09:51:35 Posterior vitreous detachment 741804418 Active 2018 BOBBY SERRANO MD [address] [place] [address], [phone] 1, [facility] 3 08:36:43 Myopia 39621524 Active 2018 BOBBY SERRANO MD [address] [place] [address], [address] 1, [facility] 3 08:36:46 Regular astigmatism 83356429 Active 2018 BOBBY SERRANO MD [address] [place] [address], [phone] 1, [facility] 3 08:36:43 Presbyopia 00531398 Active 2018 BOBBY SERRANO MD [address] [place] [address], [phone] 1, [facility] 3 08:36:43 Secondary cataract 444873587 Active 2022 BOBBY SERRANO MD [address] [place] [address], [phone] 1, [facility] 3 08:08:05 Problem Notes None recorded. Procedures Surgical History Date Name Laterality Status Provider Name and Address Organization Details Recorded Time 12/09/19 24 DAK - Destruction BN Lesions completed Her Hancock [facility] 12/09/2023 09:02:00 04/25/19 24 Refraction completed BOBBY SERRANO MD [address] [place] [address], [phone], [facility] 04/25/2023 09:55:56 03/23/20 23 Cataract Extraction - Kielar completed BOBBY SERRANO MD [address] [place] [address], [phone], [facility] 03/23/2023 08:39:42 03/23/20 23 cataract extraction and implantation of intraocular lens completed Bennie Desir [facility] 03/24/2023 09:35:50 01/11/20 23 Axial Length, A-Scan completed BOBBY SERRANO MD [address] [place] [address], [phone], [facility] 01/10/2023 08:49:44 12/23/19 19 Refraction completed BOBBY SERRANO MD [address] [place] [address], [phone], [facility] 12/22/2018 09:51:09 10/31/19 19 Cataract (left) removal with iol completed Laine Cao [facility] 10/31/2018 08:04:19 10/04/19 19 Axial Length, A-Scan completed BOBBY SERRANO MD [address] [place] [address], [phone], [facility] 10/03/2018 17:00:52 Appendectomy completed Eugenie Oh [facility] 03/23/2018 14:51:20 Imaging Results None recorded. Procedure Notes None recorded. Medical Equipment None Reported. Allergies Allergen ID Allergen Name Allergen Category Reaction Reaction Severity Criticality Documentation Date Start Date Code Code System Note Provider Name and Address Organization Details Recorded Time 401857 pseudoeph edrine Not available Not available Not available Not available 03/23/2018 8896 RxNorm [facility] 8 14:48:25 Medications Name Sig Start Date [...] Tobacco Smoking Status Never Smoker Eugenie Oh [facility] 03/23/2018 14:50:59 What Was The Date Of Your Most Recent Tobacco Screening? 10/03/2018 Information n ot available 05/22/2019 Sex: Unknown Functional Status None recorded. Mental Status None recorded. Family History Relationship Description Onset Age of this Age Resolved Age Notes LastModified by Organization Details LastModified Time Mother Glaucoma [email or web address] Not availabl e 03/23/2018 14:50:36 Mother Diabetes mellitus [email or web address] Not available 2017 14:50:43 Mother Hypertensive disorder [email or web address] Not available 2017 14:50:49 Medical History Condition Response Cataract Y Glasses/Contacts Y Gynecological HistoryNo gynecological history recorded. Obstetrics History GPAL:G 0 P 0 0 0 0 Past Encounters Encounter ID Performer Location Encounter Start Date Encounter Closed Date Diagnosis/Indication Diagnosis SNOMED-CT Code Diagnosis ICD10 Code Diagnosis IMO Codes Diagnosis Note [id number] HERMINIA DEJESUS MD OPHTHALMO BENNIE [address] [place] [address] 03/23/2018 14:32:34 03/31/2018 14:35:38 Combined form of senile cataract 50395882 H25.819 ou Myopic astigmatism 80376 4005 H52.209 ou Presbyopia 91982093 H52. 4 [id number] MD ROSMERY XIAO [address] [place] [address] 5 09/14/2018 08:20:57 09/14/2018 11:19:01 Combined form of senile cataract 28457118 H25.819 L>R Myopic astigmatism 72224 4005 H52.209 ou [id number] MD ROSMERY SLOAN [address] [place] [address] 5 10/03/2018 14:32:23 10/04/2018 15:28:06 Combined form of senile cataract 17382796 H25.812 Age-relate d nuclear cataract of right eye 5734719576 33766 H25.11 Posterior vitreous detachment 790852615 H43.813 Myopia 06436030 H52.13 Regular astigmatism 6890 5002 H52.223 Presbyopia 22552809 H52. 4 [id number] BOBBY SERRANO MD SURGERY SCHEDULE [address] [place] [address] 10/30/2018 06:16:45 10/30/2018 06:17:04 [id number] MD ROSMERY SLOAN [address] [place],[address] [place] [address] 10/31/2018 07:52:35 11/01/2018 13:14:07 Pseudophakia 10951059 Z96.1 pod#1 os-stable [id number] MD ROSMERY SLOAN [address] [place],[address] [place] [address] 5 11/10/2018 15:42:59 11/14/2018 16:25:33 Pseudophakia 70420860 Z96.1 po 1 wkos-stabl e [id number] BOBBY SERRANO MD OPHTHALMO BENNIE [address] [place],[address] [place] [address] 12/22/2018 08:34:16 12/22/2018 11:39:58 Pseudophakia 79559678 Z96.1 po 1 month os-stable Age-relate d nuclear cataract of right eye 2916133546 32022 H25.11 Myopia 70374630 H52.13 Regular astigmatism 6890 5002 H52.223 Presbyopia 47360198 H52. 4 [id number] BOBBY SERRANO MD OPHTHALMO BENNIE [address] [place] [address] 01/10/2023 07:44:25 01/10/2023 10:08:36 Age-related nuclear cataract of right eye 3896436560 67159 H25.11 progressio n-mature cataract Secondary cataract 02950 4007 H26.492 Posterior vitreous detachment 194557361 H43.813 Myopia 50550543 H52.13 Regular astigmatism 6890 5002 H52.223 Presbyopia 39294822 H52. 4 [id number] BOBBY SERRANO MD SURGERY SCHEDULE [address] [place] [address] 03/23/2023 06:25:05 03/31/2023 13:16:49 Age-related nuclear cataract of right eye 6172040999 95694 H25.11 progressio n-mature cataract [id number] BOBBY SERRANO MD OPHTHALMO BENNIE [address] [place] [address] 03/24/2023 09:27:00 03/24/2023 10:41:47 [id number] BOBBY SERRANO MD OPHTHALMCarrie AVERY [address] [place],[address] [place] [address] 2023 07:50:03 2023 09:00:23 Postoperative visit 074245981 Z09 stable po exam [id number] BOBBY SERRANO MD OPHTHALMO LOGY [address] [place] [address] 04/25/2023 08:41:34 04/25/2023 10:12:08 Postoperative visit 646216946 Z09 stable po exam Secondary cataract 06846 4007 H26.492 Posterior vitreous detachment 692781562 H43.813 Myopia 50542860 H52.13 Regular astigmatism 6890 5002 H52.223 Presbyopia 44443553 H52. 4 [id number] BOBBY SERRANO MD OPHTHALMO LOGY [address] [place] [address] 10/27/2023 09:10:26 10/27/2023 10:22:34 Secondary cataract 751845614 H26.493 Posterior vitreous detachment 888563451 H43.813 Myopia 70496510 H52.13 Regular astigmatism 6890 5002 H52.223 Presbyopia 10662426 H52. 4 [id number] ARBEN TAVERA MD [address] [address] 12/09/2023 08:04:47 12/14/2023 17:19:15 Seborrheic keratosis 116407476 L82.1 - Benign appearing, reassuranc e given Inflamed s eborrheic keratosis 789603207 L82.0 R20.8 - Will TX with LN2 [...] [employer] (MEDICARE SUPPLEMENT) [employer] [id number] [employer] 12/06/2023 1 [place] [employer] [id number] [employer] 10/27/2023 2 [place] [id number] [employer] [id number] [employer] Notes Date Note Type Note Provider Name and Address Organization Details Recorded Time 10/27/2023 text/html ROS as noted in the HPI BOBBY SERRANO MD [address] [place] [address], [phone], [facility] 10/27/2023 10:19:34 12/09/2023 text/html ROS as noted in the HPI Last visit 12/2017 Pt is here for spot checkLocation: Forehead, dry skin on back (now gone)Report: picks at spot on forehead due to bothersome/irri tated nature ARBEN TAVERA MD [address] [place] [address], [phone], [facility] 12/13/2023 07:33:41 OBGyn Episode No OBEpisode recorded.
--- OUTSIDE RECORDS SUMMARY | 2025-03-08 07:47 | XMS_ITS ---
Laboratory report Created on: March 05, 2025 ALTHEA LEONARD : 1945 Sex: Female Author Organization Unknown PROBLEMS Problems List Code Description RESULTS Laboratory Orders Date Order Code Test 2024-03-28 [id number] HCV ANTIBODY RFX TO QUANT PCR Laboratory Results Date LOINC Test Value Unit Reference Range Interpre tation 2024-03-28 [id number] HCV AB NR NON REACTIVE
== END 2025-03-08 23:59 | disposition home or self-care (01) ==
LOC: RAD 07:43
PROVIDERS: PCP Family Medicine; Visit Provider Physician Assistant
DX: N63.11 Unspecified lump in the right breast, upper outer quadrant (principal); K76.0 Fatty (change of) liver, not elsewhere classified; R92.8 Other abnormal and inconclusive findings on diagnostic imaging of breast; R93.89 Abnormal findings on diagnostic imaging of other specified body structures
CPT/HCPCS: 76641; 76705

== ENCOUNTER 2025-04-01 07:31 | Outpatient (CLI) | payer MEDICARE, OTHER, SELFPAY ==
--- OUTSIDE RECORDS SUMMARY | 2024-11-07 04:45 | XMS_ITS ---
Author Organization [facility] Address [address] [facility] [address] [place] [id number] Care Team Providers Care Biblical Studies Professor Name Role Phone Eleni Smith Unavailable [phone] Allergies Allergen (clinical drug ingredient) Drug/Non Drug Allergy documented on EMR Reaction Allergy Type Onset Date Status Sudafed Unknown Drug Allergy Active tramadol traMADol Unknown Drug Allergy Active Results Component Value Reference Range Notes CBC Venipuncture (in house) Reviewed date:11/07/2024 03:49:53 PM Interpretation: Performing Lab: Notes/Report: wbc 6.1 3.5 - 10 lymph 34.1 15 - 50 mid 8.1 2 - 15 gran 57.8 35 - 80 rbc 4.38 3.5 - 5.5 hgb 13.2 11.5 - 16.5 hct 38.6 35 - 55 mcv 88.3 75 - 100 mch 30.1 25 - 35 mchc 34.1 31 - 38 platlet 264 100 - 400 P-Vitamin B12 Reviewed date:11/13/2024 09:04:30 AM Interpretation:Normal Performing Lab: Notes/Report: Test performed by [employer] [address] [place], [place] [address] [address], [address], [place] [address] Miles Jenkins MD, Renal Technician CLIA: [id number] Vitamin B12 848 107-8343 pg/mL P-Comprehensive Metabolic Pa raheel (CMP) Reviewed date:11/13/2024 09:04:30 AM Interpretation:Normal Performing Lab: Notes/Report: Test performed by [employer] [address] [place], [place] [address] [address], [address], [place] [address] Miles Jenkins MD, Renal Technician CLIA: [id number] Sodium 139 135-145 mmol/L Potassium 4.6 3.5-5.3 mmol/L Chloride 104 97-108 mmol/L CO2 24 20-32 mmol/L Glucose 94 65-99 mg/dL BUN 14 8-23 mg/dL Creatinine 0.78 0.50-1.00 mg/dL Calcium 10.0 8.6-10.4 mg/dL eGFR by Creatinine 77 >59 mL/min/1.73m2 Protein 7.4 6.0-8.3 g/dL Albumin 4.4 3.5-5.3 g/dL Alkaline Phosphatase 68 35-121 IU/L ALT (SGPT) 16 <5-47 IU/L AST (SGOT) 20 <5-40 IU/L Bilirubin, Total 0.5 <0.2-1.2 mg/dL A/G Ratio 1.5 1.1-2.5 P-Lipid Panel Reviewed date:11/13/2024 09:04:30 AM Interpretation:trigs 194, non-hdl 136 Performing Lab: Notes/Report: Test performed by [employer], [employer] [address] [place] [address] , [address], [place] [address] Miles Jenkins MD, Renal Technician CLIA: [id number] Cholesterol 176 <200 mg/dL Triglycerides 194 <150 mg/dL HDL Cholesterol 40 >39 mg/dL Cholesterol / HDL Ratio 4.40 0.00-4.44 Ratio Non-HDL Cholesterol 136 <130 mg/dL LDL Cholesterol (Calculation) 97 <130 mg/dL LDL Cholesterol Levels* Less than 100 mg/dL Optimal 100 to 129 mg/dL Near Optimal/ Above Optimal 130 to 159 mg/dL Borderline High 160 to 189 mg/dL High 190 mg/dL and above Very High * Categories as recommended by the 2004 ATPIII guidelines LDL/HDL Ratio 2.4 <3.3 Ratio LDL Cholesterol Patient History Test Date: 11/07/2024 LDL Results: 97 Units: mg/dL % Change: - CT Scan : Chest with IV cont rast Reviewed date:11/20/2024 09:48:21 AM Interpretation:Abnormal Performing Lab: Notes/Report: Abnormal Reason For Referral Diagnosis 1 Dizziness (R42) Diagnosis 2 Word finding difficu lty (R47.89) [facility] Referring Provider First Name Eleni Referring Provider Last Name Sarah Referring Provider Speciality Physician Adult High School Instructor Referred Provider Specialty Neurology General Notes Eleni Smith 09/2024 01:21:51 PM > Needs appt with Ade Ynaez Brynn 11/07/2024 01:54:56 PM > faxed to [facility] NeurologyAde Brynn 11/09/2024 10:51:08 AM > spoke with Elvira; referral received Referral Priority Routine Diagnosis 1 Non-recurrent acute serous otitis media of both ears (H65.03) [facility] Referring Provider First Name Eleni Referring Provider Last Name Sarah Referring Provider Speciality Physician Adult High School Instructor Referred Provider Specialty ENT General Notes Eleni Smith 09/2024 01:22:25 PM >[facility] 11/07/2024 01:55:56 PM > faxed to [facility] ENTAde Brynn 11/09/2024 11:31:36 AM > spoke with Nael; received by ENT Referral Priority Routine REASON FOR VISIT Consult, BW, f/u with Angie Breen Medications Medication SIG (Take, Route, Frequency, Duration) Notes Start Date End Date Status Losartan Potassium 50 MG 1 tablet Orally Once a day Active Flonase Allergy Relief 50 MCG/ACT 1 spray in each nostril Nasally Once a day; Duration: 30 days 11/07/2024 Active Diclofenac Sodium 75 MG 1 tablet as need ed Orally Twice a day Active Aspirin 81 MG 1 tablet Orally Once a day Active Pravastatin Sodium 80 MG 1 tablet Orally Once a day Active Problems Problem Type SNOMED Code ICD Code Onset Dates Problem Status W/U Status Risk Notes Problem Essential hypertension (76168335) Essential hypertension (I10) Active confirmed Problem Mixed hyperlipidemia (422705145) Mixed hyperlipidemia (E78.2) Active confirmed Problem Body mass index 40+ - morbidly obese (529664627) BMI 40.0-44.9, adult (Z68.41) Active confirmed Problem Morbid obesity (445180615) Obesity, morbid, BMI 40.0-49.9 (E66.01) Active confirmed Vital Signs Blood pressure systolic 132 mm Hg 11/08/19 25 Blood pressure diastolic 72 mm Hg 025 Heart Rate 60 /min 11/07/2024 Height 60 in 11/07/2024 Weight 215.4 lbs 11/07/2024 BMI 42.06 kg/m2 11/07/2024 Encounters Encounter Location Date Provider Diagnosis [facility] [address] [facility] [address] [place], [place] [id number] 11/07/2024 Eleni Sarah Dizziness R42 ; Essential hypertension I10 ; Word finding difficulty R47.89 ; Lung density present on imaging study J98.4 ; Non-recurrent acute serous otitis media of both ears H65.03 ; Mixed hyperlipidemia E78.2 ; BMI 40.0-44.9, adult Z68.41 and Obesity, morbid, BMI 40.0-49.9 E66.01 Assessments Encounter Date Diagnosis (ICD Code) Assessment Notes Treatment Notes Treatment Clinical Notes Section Notes 11/07/2024 Dizziness (ICD-10 - R42) 11/07/2024 Essential hypertension (ICD-10 - I10) 11/07/2024 Word finding difficulty (ICD-10 - R47.89) 11/07/2024 Lung density present on imaging study (ICD-10 - J98.4) 11/07/2024 Non-recurrent acute serous otitis media of both ears (ICD-10 - H65.03) Will start daily claritin as well. 11/07/2024 Mixed hyperlipidemia (ICD-10 - E78.2) 11/07/2024 BMI 40.0-44.9, adult (ICD-10 - Z68.41) 11/07/2024 Obesity, morbid, BMI 40.0-49.9 (ICD-10 - E66.01) Plan Of Treatment Medication Medication Name Sig Start Date Stop Date Notes Flonase Allergy Relief 50 MCG/ACT 1 spray in each nostril Nasally Once a day; Duration: 30 days 11/07/2024 Treatment Notes Assessment Notes Non-recurrent acute serous o titis media of both ears Will start daily claritin as well. Referrals Referral Date Details 11/07/2024 11/07/2024 11/07/2024 11/07/2024 Next Appt Details Follow Up: via phone to repo rt test results, Reason: Progress Notes * Davey TRINHDOB: 6 (80 yo F)Acc No.[id number]:11/07/2024 Progress Notes Patient: Chau Davey YBARRA Provider: SEE Riggs :1945 A ge:79 Y S ex:Female Date:11/07/2024 Address:[address] [place] [address] Rd, [id number] Subjective: * Chief Complaints: * 1 . Consult, BW, f/u with Angie Breen. * HPI: H PI: Patient is here today for B Ingogo work and to get established with us. Pt was last seen by . S he has lightheadedness and sometimes has trouble finding her words. She had a full cardiac workup and everything was normal other than a CXR that showed a spot in the lung.. * ROS: D ERMATOLOGY: no R ortega. n o H kristina. G ASTROENTEROLOGY: no N ausea. n o V omiting. n o D iarrhea.? U ROLOGY: no D ifficulty urinating. n o B lood in urine. * Medical History: S inus, High Cholesterol, Hypertension. * Surgical History: t ubal ligation 1972, appendectomy 1994, left hip replacement 2016. * Family History: M other: , diagnosed with Hypertension, Diabetes. 3 brother(s) , 5 sister(s) . 2 son(s) , 2 daughter(s) . . Brother: Diabetes and cancer. * Social History: C URRENT TOBACCO USE: No . C affeine: yes, frequency:. * Medications: T aking Aspirin 81 MG Tablet Delayed Release 1 tablet Orally Once a day , Taking Diclofenac Sodium 75 MG Tablet Delayed Release 1 tablet as needed Orally Twice a day , Taking Losartan Potassium 50 MG Tablet 1 tablet Orally Once a day , Taking Pravastatin Sodium 80 MG Tablet 1 tablet Orally Once a day , Medication List reviewed and reconciled with the patient * Allergies: S udafed, traMADol. Objective: * Vitals: W t: 215.4, Temp: 97.5, BP: 132/72, HR: 60, Nurse: pe, Ht: 60, BMI:42.06. * Examination: G eneral Examination: General Appearance: N AD. H EENT: s clera and conjunctiva clear, PERRLA, TM's with effusion bilaterally, no erythema. O ral cavity: n o lesions, mucosa moist and WNL, no erythema. N becky: s upple, no lymphadenopathy. C hest: n ormal shape and expansion. H eart: R SR. L ungs: c lear to auscultation. A bdomen: b owel sounds present, soft and nontender. N eurologic Exam: I ntact, gait normal.?Skin: n ormal, no rash. P eripheral pulses: n ormal (2+) bilaterally. E xtremities: n o leg edema. Assessment: * Assessment: 1. D izziness - R42 (Primary) 2 . E ssential hypertension - I10 ?3. W ord finding difficulty - R47.89 4 . L erlinda density present on imaging study - J98.4 5 . N on-recurrent acute serous otitis media of both ears - H65.03 6 . M ixed hyperlipidemia - E78.2 7 . B PR 40.0-44.9, adult - Z68.41 8 . O besity, morbid, BMI 40.0-49.9 - E66.01 Plan: * Treatment: Value Reference Range V itamin B12 880 513-7677 - pg/mL * Eleni Smith 11/07/2024 10 :35:15 AM EDT >room isabel Ruiz Whitney 11/13/2024 09:04:20 AM EDT > See phone encounter ?LAB: P-Comprehensive Metabolic Panel (CMP) (Collection Date & Time - 11/07/2024 09:45 AM)?Normal* Value Reference Range A /G Ratio 1.5 1.1-2.5 - * A lbumin 4.4 3.5-5.3 - g/dL * A lkaline Phosphatase 68 35-121 - IU/L * A LT (SGPT) 16 <5-47 - IU/L * A ST (SGOT) 20 <5-40 - IU/L * B ilirubin, Total 0.5 <0.2-1.2 - mg/dL * B UN 14 8-23 - mg/dL * C alcium 10.0 8.6-10.4 - mg/dL * C hloride 104 97-108 - mmol/L * C O2 24 20-32 - mmol/L * C reatinine 0.78 0.50-1.00 - mg/dL * G lucose 94 65-99 - mg/dL * P otassium 4.6 3.5-5.3 - mmol/L * S odium 139 135-145 - mmol/L * P rotein 7.4 6.0-8.3 - g/dL * e GFR by Creatinine 77 >59 - mL/min/1.73m2 * Eleni Smith 11/07/2024 10 :35:15 AM EDT >room isabel Ruiz Whitney 11/13/2024 09:04:20 AM EDT > See phone encounter ?LAB: CBC Venipuncture (in house) (Collection Date & Time - 11/07/2024)* Value Reference Range w bc 6.1 3.5 - 10 * l ymph 34.1 15 - 50 * m id 8.1 2 - 15 * g ran 57.8 35 - 80 * r bc 4.38 3.5 - 5.5 * h gb 13.2 11.5 - 16.5 * h ct 38.6 35 - 55 * m cv 88.3 75 - 100 * m ch 30.1 25 - 35 * m chc 34.1 31 - 38 * p latlet 264 100 - 400 * SummerAngelika shepardge 11/07/2024 12 :06:57 PM EDT >Sarah Eleni S 11/07/2024 03:49:52 PM EDT > ? Referral To:Neurology ?Reason: 2.?Word finding difficulty? Referral To:Neurology ?Reason: 3.?Lung density present on imaging study?Imaging: CT Scan : Chest with IV contrast (Performed Date - 11/19/2024)? Abnormal* Miguelina Booker 11/07/2024 01:58 :45 PM EDT > no auth required; CPT code 38351; faxed to [facility] Yanet Gibbs 11/20/2024 09:48:13 AM EDT > see phone encounter 4.?Non-recurrent acute serous otitis media of both ears? Start Flonase Allergy Relief Suspension, 50 MCG/ACT, 1 spray in each nostril, Nasally, Once a day, 30 days, 1, Refills 0.?? Notes: Will start daily claritin as well.? Referral To:ENT ?Reason: 5.?Mixed hyperlipidemia?LAB: P-Lipid Panel (Collection Date & Time - 11/07/2024 09:45 AM)?trigs 194, non-hdl 136* Value Reference Range C holesterol / HDL Ratio 4.40 0.00-4.44 - Ratio * C holesterol 176 <200 - mg/dL * H DL Cholesterol 40 >39 - mg/dL * L DL Cholesterol (Calculation) 97 <130 - mg/d L * L DL/HDL Ratio 2.4 <3.3 - Ratio * N on-HDL Cholesterol 136 H <130 - mg/dL * T riglycerides 194 H <150 - mg/dL * Yanet Garces 11/13/2024 09: 04:20 AM EDT > See phone encounter * Procedure Codes: G 2211 Complex e/[place], [address] CBC WITH AUTO DIFF, 52039 VENIPUNCT, ROUTINE*, 1036F TOBACCO NON-USER, G8950 PREHTN/HTN BP DOC INDCD F/U DOC, G8752 MOST RECENT SYSTOLIC BP < 140MM HG, G8754 MOST RECENT DIASTOLIC BP < 90MM HG * Follow Up: v ia phone to report test results * Images: Drawing:[facility] 2024 Billing Information: * Visit Code: 41258 Office Visit, New Pt., Level 3. * Procedure Codes: G2211 Complex e/[place]. [address] CBC WITH AUTO DIFF. 04752 VENIPUNCT, ROUTINE*. 1036F TOBACCO NON-USER. G8950 PREHTN/HTN BP DOC INDCD F/U DOC. G8752 MOST RECENT SYSTOLIC BP < 140MM HG. G8754 MOST RECENT DIASTOLIC BP < 90MM HG. * Electronic signature of SEE Raphael on 04/01/2025 at 07:37 AM EST Sign off status: Pending * Provider: SEE Riggs Date: 0 11/07/2024 Generated for Troy jorge/Fasundarg/eTransmitting on: 1 07:37 AM EST History and Physical Notes * HPI (History of Present Illness) Category Sub-Category Detail Notes Category Not es HPI Patient is here today for Blood work and to get established with us. Pt was last seen by . She has lightheadedness and sometimes has trouble finding her words. She had a full cardiac workup and everything was normal other than a CXR that showed a spot in the lung. Examination Category Sub-Category Detail Notes Category Not es General Examination HEENT: sclera and c onjunctiva clear, PERRLA, TM's with effusion bilaterally, no erythema Heart: RSR Lungs: clear to auscultatio n Abdomen: bowel sounds present , soft and nontender Extremities: no leg edema General Appearance: NAD Skin: normal, no rash Neurologic Exam: Intact, gait normal Neck: supple, no lymphaden opathy Oral cavity: no lesions, mucosa m oist and WNL, no erythema Peripheral pulses: normal (2+) bilatera lly Chest: normal shape and exp ansion Consultation Request Notes Referral Date Referring Provider Referred Provider Not es 11/07/2024 Eleni Smith , 11/07/2024 Eleni Smith ,
--- OUTSIDE RECORDS SUMMARY | 2025-03-04 06:00 | XMS_ITS ---
Author Organization [facility] Address [address] [place] [phone] Care Team Providers Care Placement Interviewer Name Role Phone Lela Hurtado Unavailable [phone] Allergies Allergen (clinical drug ingredient) Drug/Non Drug [...] coli Performing Lab: Notes/Report: Test performed by [facility] [employer] [facility] [address] [place] [address] , [address], [place] [address] Fauzia Muir MD, PhD, FCAP, Melter Helper CLIA: [id number] Specimen Source Urine - Void Culture, Urine [...] Orally Once a day Active Vital Signs Blood pressure systolic 134 mm Hg 03/04/20 25 Blood pressure diastolic 70 mm Hg 025 Heart Rate 61 /min 03/04/2025 Height 60 in 03/04/2025 Weight 217 lbs 03/04/2025 BMI 42.38 kg/m2 03/04/2025 Encounters Encounter Location Date Provider Diagnosis [facility] [address] [place] [phone] 03/04/2025 Lela Hurtado Acute lower urinary tract [...] Reason: Progress Notes * AISHA DaveyDOB: 6 (80 yo F)Acc No.[id number]:03/04/2025 Progress Notes Patient: Davey HILTON Provider: RUTH Lan :1945 A ge:79 Y S ex:Female Date:03/04/2025 Address:[address] [place] [address] Rd, [id number] Subjective: * Chief Complaints: * 1 . [...] with good water intake?? * Procedure Codes: G 2211 Complex e/[place], [address] Urinalysis, no micro, G8783 BP SCR PRFRM RCMDD DEFIND SCR INTVL, G8752 MOST RECENT SYSTOLIC BP < 140MM HG, G8754 MOST RECENT DIASTOLIC BP < 90MM HG, 3075F SYST BP GE 130 - 139MM HG, 3078F DIAST BP < 80 MM HG * Follow Up: p rn * Images: Billing Information: * Visit Code: 35776 Office Visit, Est Pt., Level 3. * Procedure Codes: G2211 Complex e/[place]. [address] Urinalysis, no micro. G8783 BP SCR PRFRM RCMDD DEFIND SCR INTVL. G8752 MOST RECENT SYSTOLIC BP < 140MM HG. G8754 MOST RECENT DIASTOLIC BP < 90MM HG. 3075F SYST BP GE 130 - 139MM HG. 3078F DIAST BP < 80 MM HG. * Electronic signature of Fatou Hurtado APRN on 04/01/2025 at 07:37 AM EST Sign off status: Pending * Provider: RUTH Lan Date: 05/05/2024 Generated for Troy jorge/Ramon/Hortenciaitting on: 07:37 AM EST History and Physical Notes [...]
--- NOTE | 2025-04-01 07:37 | US_ITS ---
FINAL REPORT CLINICAL HISTORY: ABNML BIOPSY OF RT BREAST RT BREAST BX 1000-- DR YOU FINDINGS: ULTRASOUND-GUIDED RIGHT BREAST CORE BIOPSY TECHNIQUE: Limited images were obtained to localize region of interest. The right breast was prepped in a routine sterile fashion and locally anesthetized with 1% lidocaine. Standard written informed consent was obtained. Lesion of interest was localized in the right upper outer quadrant. The biopsy needle was positioned within the outer periphery of the lesion. A total of 4 passes were made with a 16 gauge core biopsy needle. A biopsy marker clip was deployed in satisfactory position. Postbiopsy mammogram showed postbiopsy changes with clip in satisfactory position. Procedure was well tolerated . CONCLUSION: 1. Technically successful ultrasound guided core biopsy of right breast lesion as above. 2. Biopsy marker clip deployed Histopathology results reveal invasive ductal carcinoma.. Pathology is concordant with mammographic findings. Recommend surgical and medical oncologic follow-up Authenticated and ERN
--- OUTSIDE RECORDS SUMMARY | 2025-04-01 07:37 | XMS_ITS | Patient Health Record ---
[facility] Address [address] [place] [id number] Care Team Providers Care Tool Grinder Operator Name Role Phone [place] Jaime Unavailable [phone] Lela Hurtado Unavailable [phone] Eleni Smith Unavailable [phone] Allergies Allergen (clinical drug ingredient) Drug/Non Drug [...] coli Performing Lab: Notes/Report: Test performed by [employer] [employer] [address] [place] [address] , [address], [place] [address] Fauzia Muir MD, PhD, [facility], [employer]rick Chimney Builder CLIA: [id number] Specimen Source Urine - Void Culture, Urine [...] Tobramycin S Trimeth/Sulfa S S=SUSCEPTIBLE I=INTERMEDIATE R=RESISTANT Ultrasound : Breast, right Reviewed date:03/15/2025 01:56:15 PM Interpretation: Performing Lab: Notes/Report: Ultrasound : Breast, right Reviewed date:03/15/2025 01:56:15 PM Interpretation: Performing Lab: Notes/Report: xUltrasound: liver Reviewed date:03/27/2025 10:03:48 AM Interpretation:fatty infiltration Performing Lab: Notes/Report: fatty infiltration Mammogram : Diagnostic Right Breast Reviewed date:02/21/2025 09:31:41 AM Interpretation: Performing Lab: Notes/Report: CBC Venipuncture (in house) Reviewed date:11/07/2024 03:49:53 [...] Interpretation:Normal Performing Lab: Notes/Report: Test performed by [facility] [address] [place] [address] , [address], [place] [address] Miles Jenkins MD, [employer] CLIA: [id number] Vitamin B12 685 127-4434 pg/mL P-Comprehensive Metabolic Pa raheel (CMP) Reviewed date:11/13/2024 09:04:30 AM Interpretation:Normal Performing Lab: Notes/Report: Test performed by [facility] [address] , [address], [place] [address] Miles Jenkins MD, Brick Chimney Builder CLIA: [id number] Sodium 139 135-145 mmol/L Potassium 4.6 3.5-5.3 [...] 136 Performing Lab: Notes/Report: Test performed by [employer] [facility] [address] [place] [address] , [address], [place] [address] Miles Jenkins MD, [employer] CLIA: [id number] Cholesterol 176 <200 mg/dL Triglycerides 194 <150 [...] Word finding difficu lty (R47.89) [facility] Referring Provider First Name Eleni Referring Provider Last Name Sarah Referring Provider Speciality Physician Freezer Person Referred Provider Specialty Neurology General Notes Eleni Smith 09/2024 01:21:51 PM > Needs appt with Ade Yanez Brynn 11/07/2024 01:54:56 PM > faxed to [facility] NeurologyAde Brynn 11/09/2024 10:51:08 AM > spoke with Elvira; referral received Referral Priority Routine Diagnosis 1 Non-recurrent acute serous otitis media of both ears (H65.03) Referral Organization [facility] Referring Provider First Name Eleni Referring Provider Last Name Sarah Referring Provider Speciality Physician Freezer Person Referred Provider Specialty ENT General Notes Eleni Smith 09/2024 01:22:25 PM >[facility] 11/07/2024 01:55:56 PM > faxed to [facility] ENTAde Brynn 11/09/2024 11:31:36 AM [...] 12 hrs; Duration: 5 days 03/04/2025 Active Diclofenac Sodium 75 MG 1 tablet as need ed Orally Twice a day; Duration: 90 days Active Problems Problem Type SNOMED Code ICD Code Onset Dates Problem Status W/U Status Risk Notes Problem Essential hypertension (10929733) Essential hypertension (I10) Active confirmed Problem Mixed hyperlipidemia (864622496) Mixed hyperlipidemia (E78.2) Active confirmed Problem Body mass index 40+ - morbidly obese (692709596) BMI 40.0-44.9, adult (Z68.41) Active confirmed Problem Morbid obesity (184292088) Obesity, morbid, BMI 40.0-49.9 (E66.01) Active confirmed Problem Mammography abnormal (666123965) Abnormal mammogram of right breast (R92.8) Active confirmed Problem Ultrasonography of breast abnormal (95588506101639301 ) Abnormal ultrasound of breast (R92.8) Active confirmed Problem Tomography - chest abnormal (063843606) Abnormal CT scan, chest (R93.89) Active confirmed Vital Signs Heart Rate 61 /min 03/04/2025 Blood pressure diastolic 70 mm Hg 03/04/2025 Height 60 in 03/04/2025 Blood pressure systolic 134 mm Hg 03/04/2025 Weight 217 lbs 03/04/2025 BMI 42.38 kg/m2 03/04/2025 Encounters Encounter Location Date Provider Diagnosis [facility] [address] [place] [id number] 11/07/2024 Eleni Crowdy Dizziness R42 ; Essential hypertension I10 ; Word finding difficulty R47.89 ; Lung density present on imaging study J98.4 ; Non-recurrent acute serous otitis media of both ears H65.03 ; Mixed hyperlipidemia E78.2 ; BMI 40.0-44.9, adult Z68.41 and Obesity, morbid, BMI 40.0-49.9 E66.01 [facility] [address] [place], [place] [id number] 03/04/2025 Lelafelisa Lopezond Acute lower urinary tract infection N39.0 [facility] [address] [place] [id number] 11/12/2024 [place] [facility] [address] [place] [id number] 11/13/2024 Eleni Crowdy [facility] [address] [place] [id number] 11/20/2024 Eleni Crowdy [facility] [address] [place] [id number] 12/04/2024 Eleni Crowdy [facility] [address] [place] [id number] 12/14/2024 [place] [facility] [address] [place] [id number] 12/25/2024 Eleni Crowdy [facility] [address] [place] [id number] 02/21/2025 Eleni Crowdy [facility] [address] [place] [id number] 03/12/2025 Lela Hurtado [facility] [address] [place] [id number] 03/27/2025 Eleni Smith Assessments Encounter Date Diagnosis (ICD [...] Pending Test Test Name Order Date Ultrasound Guided Biopsy: Breast, right 03/13/2025 Insurance Providers Payer Name Payer Address Payer Phone Subscriber Number Group Number Insured Name Patient Relationship to Insured Coverage Start Date Coverage End Date MEDICARE PART B [address] [address] [place] [address] [id number] Davey Trinh Self - patient is the insured [employer] [place] [address] [place] [address] [id number] Davey Trinh Self - patient is the insured Medical (General) History Medical History History ICD Code Sinus High Cholesterol hypertension Surgical History Surgery Date(Month/Year) tubal ligation 1973 appendectomy 1994 left hip replacement 2016
--- OUTSIDE RECORDS SUMMARY | 2025-04-01 07:37 | XMS_ITS | Data Portability ---
Author Organization [facility] Address [address] [place] [address] Care Team Providers Care Inside Tester Name Role Phone BOBBY SERRANO Well Service Derrick Worker VANDANA MAURER Primary Care Provider Assessment No [...] By Organization Details Last Modified Time 03/24/2023 [id number] recheck 1 wk [email or web address] Not available 09:56:47 [...] drops. dkielar Not available 03/24/2023 09:48:30 2023 [id number] tomorrow restrictions are lifted,stop moxifloxacin and begin pred/ketorolac taper per instructions(revie tue with pt/daughter) recheck 1 month refract ou and dilate od dkielar Not available 2023 08:10:38 04/25/2023 [id number] stable po exam M R with +2.75 NL recheck 6 months complete exam [email or web address] Not available 04/25/2023 10:08:54 10/27/2023 [id number] stable exam recheck 1 yr dkielar Not [...] Recorded Time Combined form of senile cataract 44083528 Completed 201812/22/2018 BOBBY SERRANO MD [address] [place] [address], [phone], [facility] 9 09:51:35 Posterior vitreous detachment 241281936 Active 2018 BOBBY SERRANO MD [address] [place] [address], [phone] 1, [facility] 3 08:36:43 Myopia 20336104 Active 2018 BOBBY SERRANO MD [address] [place] [address], [address] 1, [facility] 3 08:36:46 Regular astigmatism 95089282 Active 2018 BOBBY SERRANO MD [address] [place] [address], [address] 1, [facility] 3 08:36:43 Presbyopia 95673225 Active 2018 BOBBY SERRANO MD [address] [place] [address], [phone] 1, [facility] 3 08:36:43 Secondary cataract 521220814 Active 2022 BOBBY SERRANO MD [address] [place] [address], [address], [facility] 3 08:08:05 Problem Notes None recorded. Procedures Surgical History Date Name Laterality Status Provider Name and Address Organization Details Recorded Time 12/09/19 24 DAK - Destruction BN Lesions completed Her Hancock [facility] 12/09/2023 09:02:00 04/25/19 24 Refraction completed BOBBY SERRANO MD [address] [place] [address], [phone], [facility] 04/25/2023 09:55:56 03/23/20 23 Cataract Extraction - Kielar completed BOBBY SERRANO MD [address] [place] [address], [phone], [facility] 03/23/2023 08:39:42 03/23/20 23 cataract extraction and implantation of intraocular lens completed Bennie Desir [facility] 03/24/2023 09:35:50 01/11/20 23 Axial Length, A-Scan completed BOBBY SERRANO MD [address] [place] [address], [phone], [facility] 01/10/2023 08:49:44 12/23/19 19 Refraction completed BOBBY SERRANO MD [address] [place] [address], [phone], [facility] 12/22/2018 09:51:09 10/31/19 19 Cataract (left) removal with iol completed Laine Cao [facility] 10/31/2018 08:04:19 10/04/19 19 Axial Length, A-Scan completed BOBBY SERRANO MD [address] [place] [address], [phone], [facility] 10/03/2018 17:00:52 Appendectomy completed Eugenie Oh [facility] 03/23/2018 14:51:20 Imaging Results None recorded. Procedure Notes None recorded. Medical Equipment None Reported. Allergies Allergen ID Allergen Name Allergen Category Reaction Reaction Severity Criticality Documentation Date Start Date Code Code System Note Provider Name and Address Organization Details Recorded Time 569121 pseudoeph edrine Not available Not available Not available Not available 03/23/2018 8896 RxNorm [facility] 14:48:25 Medications Name Sig [...] Tobacco Smoking Status Never Smoker Eugenie Oh [facility] 03/23/2018 14:50:59 What Was The Date Of Your Most Recent Tobacco Screening? 10/03/2018 Information n ot available 05/22/2019 Sex: Unknown Functional Status None recorded. Mental Status None recorded. Family History Relationship Description Onset Age of this Age Resolved Age Notes LastModified by Organization Details LastModified Time Mother Glaucoma Not availabl e 03/23/2018 14:50:36 Mother Diabetes mellitus [email or web address] Not available 2017 14:50:43 Mother Hypertensive disorder [email or web address] Not available 2017 14:50:49 Medical History Condition Response Cataract Y Glasses/Contacts Y Gynecological HistoryNo gynecological history recorded. Obstetrics History GPAL:G 0 P 0 0 0 0 Past Encounters Encounter ID Performer Location Encounter Start Date Encounter Closed Date Diagnosis/Indication Diagnosis SNOMED-CT Code Diagnosis ICD10 Code Diagnosis IMO Codes Diagnosis Note [id number] HERMINIA DEJESUS MD OPHTHALMO BENNIE [address] [place] [address] 03/23/2018 14:32:34 03/31/2018 14:35:38 Combined form of senile cataract 48852569 H25.819 ou Myopic astigmatism 43634 4005 H52.209 ou Presbyopia 42373308 H52. 4 [id number] MD ROSMERY XIAO [address] [place] [address] 5 09/14/2018 08:20:57 09/14/2018 11:19:01 Combined form of senile cataract 49652267 H25.819 L>R Myopic astigmatism 39508 4005 H52.209 ou [id number] MD ROSMERY SLOAN [address] [place] [address] 5 10/03/2018 14:32:23 10/04/2018 15:28:06 Combined form of senile cataract 02911957 H25.812 Age-relate d nuclear cataract of right eye 8484179123 29465 H25.11 Posterior vitreous detachment 708094903 H43.813 Myopia 73105598 H52.13 Regular astigmatism 6890 5002 H52.223 Presbyopia 68312674 H52. 4 [id number] BOBBY SERRANO MD SURGERY SCHEDULE [address] [place] [address] 10/30/2018 06:16:45 10/30/2018 06:17:04 [id number] MD ROSMERY SLOAN [address] [place],[address] [place] [address] 10/31/2018 07:52:35 11/01/2018 13:14:07 Pseudophakia 42524783 Z96.1 pod#1 os-stable [id number] MD ROSMERY SLOAN [address] [place],[address] [place] [address] 5 11/10/2018 15:42:59 11/14/2018 16:25:33 Pseudophakia 74372777 Z96.1 po 1 wkos-stabl e [id number] BOBBY SERRANO MD OPHTHALMO BENNIE [address] [place],[address] [place] [address] 12/22/2018 08:34:16 12/22/2018 11:39:58 Pseudophakia 30298064 Z96.1 po 1 month os-stable Age-relate d nuclear cataract of right eye 3294076176 11940 H25.11 Myopia 38247602 H52.13 Regular astigmatism 6890 5002 H52.223 Presbyopia 15020824 H52. 4 [id number] BOBBY SERRANO MD OPHTHALMO BENNIE [address] [place] [id number] 01/10/2023 07:44:25 01/10/2023 10:08:36 Age-related nuclear cataract of right eye 9574096854 41972 H25.11 progressio n-mature cataract Secondary cataract 31368 4007 H26.492 Posterior vitreous detachment 360484857 H43.813 Myopia 27804553 H52.13 Regular astigmatism 6890 5002 H52.223 Presbyopia 75915165 H52. 4 [id number] BOBBY SERRANO MD SURGERY SCHEDULE [address] [place] [address] 03/23/2023 06:25:05 03/31/2023 13:16:49 Age-related nuclear cataract of right eye 1450926861 16297 H25.11 progressio n-mature cataract [id number] BOBBY SERRANO MD OPHTHALMO BENNIE [address] [place] [address] 03/24/2023 09:27:00 03/24/2023 10:41:47 [id number] BOBBY SERRANO MD OPHTHALMCarrie AVERY [address] [place],[address] [place] [id number] 2023 07:50:03 2023 09:00:23 Postoperative visit 362783840 Z09 stable po exam [id number] BOBBY SERRANO MD OPHTHALMO LOGY [address] [address] 04/25/2023 08:41:34 04/25/2023 10:12:08 Postoperative visit 264569997 Z09 stable po exam Secondary cataract 23481 4007 H26.492 Posterior vitreous detachment 636032623 H43.813 Myopia 12665922 H52.13 Regular astigmatism 6890 5002 H52.223 Presbyopia 54273963 H52. 4 [id number] BOBBY SERRANO MD OPHTHALMO LOGY [address] [place] [address] 10/27/2023 09:10:26 10/27/2023 10:22:34 Secondary cataract 832103460 H26.493 Posterior vitreous detachment 472894946 H43.813 Myopia 51194843 H52.13 Regular astigmatism 6890 5002 H52.223 Presbyopia 54156208 H52. 4 [id number] ARBEN TAVERA MD [address] [address] 12/09/2023 08:04:47 12/14/2023 17:19:15 Seborrheic keratosis 901151783 L82.1 - Benign appearing, reassuranc e given Inflamed s eborrheic keratosis 986203891 L82.0 R20.8 - Will TX with LN2 [...] [employer] (MEDICARE SUPPLEMENT) [employer] [id number] [employer] 12/06/2023 1 [place] [employer] [id number] [employer] 10/27/2023 2 [place] [id number] [employer] [id number] [employer] Notes Date Note Type Note Provider Name and Address Organization Details Recorded Time 10/27/2023 text/html ROS as noted in the HPI BOBBY SERRANO MD [address] [place] [address], [phone], [facility] 10/27/2023 10:19:34 12/09/2023 text/html ROS as noted in the HPI Last visit 12/2017 Pt is here for spot checkLocation: Forehead, dry skin on back (now gone)Report: picks at spot on forehead due to bothersome/irri tated nature ARBEN TAVERA MD [address] [place] [address], [phone], [facility] 12/13/2023 07:33:41 OBGyn Episode No OBEpisode recorded.
--- OUTSIDE RECORDS SUMMARY | 2025-04-01 07:37 | XMS_ITS | Clinical Summary ---
Author Organization [facility] Address [address] [place] [address] Phone Care Team Providers Care Design Tech Name Role Phone Unavailable Unavailable Conditions or Problems No information available. Medications No information available. Medications Administered No information available. Allergies, Adverse Reactions, Alerts No information available. Results No information available. Plan of Care No information available. Procedures No information available. Vital Signs No information available. Immunizations No information available. Advance Directives No information available.
--- NOTE | 2025-04-01 08:43 | MM_ITS ---
FINAL REPORT CLINICAL HISTORY: CLIP PLACEMENT FINDINGS: MAMMOGRAM RIGHT TECHNIQUE: Standard digital 2-D views COMPARISON: 01/23/2025 and 02/27/2025 DENSITY: There are scattered areas of fibroglandular density FINDINGS: Post biopsy marker clip is noted to be in satisfactory position. Postbiopsy changes are noted. IMPRESSION: Biopsy marker clip in good position ASSESSMENT: A post-procedure mammogram is used to confirm the position and deployment of a breast tissue marker after a biopsy RECOMMENDATION: Surgical and medical oncologic follow-up given findings of invasive ductal carcinoma Authenticated and ERN
== END 2025-04-01 23:59 | disposition home or self-care (01) ==
LOC: RAD 07:33
PROVIDERS: PCP Family Medicine; Visit Provider Nurse Practitioner Family
DX: C50.411 Malignant neoplasm of upper-outer quadrant of right female breast (principal); R92.8 Other abnormal and inconclusive findings on diagnostic imaging of breast
CPT/HCPCS: 19083; 77065; 88305; 88342; 88360; A4648